=== PATIENT | female | born 1965 | race Caucasian/White ===

== ENCOUNTER → 2020-09-20 10:51 | Outpatient (BNVA) | payer OTHER, SELFPAY | PROVIDERS: Family Provider General Practice; PCP Family Medicine; Visit Provider Family Medicine | DX: E11.9 Type 2 diabetes mellitus without complications (principal); E78.2 Mixed hyperlipidemia; I10 Essential (primary) hypertension; F41.9 Anxiety disorder, unspecified; G47.00 Insomnia, unspecified; Z79.4 Long term (current) use of insulin | CPT/HCPCS: 80053; 80061; 83036; 84443; 85025 ==

== ENCOUNTER 2020-10-17 09:44 | Emergency (ER) | payer OTHER, SELFPAY ==
[2020-10-17] VITALS (8 sets, daily range): BP systolic 105–141; BP diastolic 45–78; PULSE 76–82; RESP 18; TEMP 36.7; O2SAT 93–97; BMI 52.4
--- NOTE | 2020-10-17 10:05 | ECG_ITS ---
[facility] ED Test Date: 2020-10-17 Pat Name: Ju Anderson Department: Room: Gender: Female Manager Hair: : 1965 Requested By: Alexander Diaz Order Number: [id number] Lurdes MD: Misty Merino M.D. Measurements Intervals [place] Rate: 78 P: 50 MT: 191 QRS: 7 QRSD: 86 T: 32 QT: 379 QTc: 433 Interpretive Statements SINUS RHYTHM LOW QRS VOLTAGE IN PRECORDIAL LEADS [QRS DEFLECTION < 1.0 mV IN CHEST LEADS] NONSPECIFIC T-WAVE ABNORMALITY No previous ECG available for comparison Electronically Signed On 10-23-2020 0:33:07 CDT by Misty Merino M.D. [id number]
--- NOTE | 2020-10-17 10:05 | XR_ITS ---
WS: [id number] XR chest 1V portable [id number] REASON FOR EXAM: palpitations FINDINGS: Status post coronary artery bypass surgery. Heart is at the upper limits of normal. There is elevation of both hemidiaphragms. No active pulmonary parenchymal or pleural disease is seen. XR/XR chest 1V portable [id number] IMPRESSION: Status post coronary artery bypass surgery. No acute chest abnormality.
--- NOTE | 2020-10-17 10:06 | ED_ITS ---
HPI - General Adult General: Chief complaint: Nausea/Vomiting/Diarrhea Stated complaint: N/V, discombolulated, shaky, weak Time Seen by Provider: 10/17/20 10:00 History of Present Illness: HPI narrative: This patient presents to the emergency department complaining of anxiety type symptoms. Patient states I feel discombobulated. Patient states she is feels extremely and numbness to her fingers. Patient has a long history of anxiety and takes Klonopin for the same. Patient is concerned that she has Covid again even though she does not have any shortness of breath or cough or congestion. Patient states that she had Covid last January and subsequently got her vaccination in May. 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 Patient also states that she wishes to have a medical screening exam on her heart because she has a cardiac history. Patient does not describe any cardiac type symptoms and appears to be more anxious. We will do medical evaluation treat as needed. Onset (ago): day(s) Associated symptoms: Deny chest pain, dyspnea, headache(s), nausea, rash, palpitations or vomiting Review of Systems General: Reports: 10 or more systems reviewed and unremarkable except in HPI and below Const: Denies: fever(s), chills, body aches or fatigue Eyes: Denies: change in vision or blurry vision ENMT: Denies: throat pain, hoarseness or mouth pain Card: Denies: chest pain, palpitations, irregular heart rhythm, edema, swelling of feet/ankles or lightheadedness Resp: Denies: dyspnea, productive cough, non-productive cough, wheezing or pain on inspiration GI: Denies: abdominal pain, nausea or vomiting : Denies: flank pain, difficulty voiding, dysuria, urinary frequency, urinary urgency or urinary hesitancy Musc: Denies: neck pain, back pain, extremity pain, extremity swelling, joint pain, joint swelling, joint redness, joint warmth or limited range of motion Skin/Breast: Denies: rash, pruritus, erythema or skin tenderness Neuro: Denies: headache(s), numbness in extremities or weakness in extremities Psych: Reports: anxiety; Denies: depression PFS ED PFSH: Medical History Anxiety Diabetes GERD (gastroesophageal reflux disease) Hx of chest pain Hyperlipidemia Hypertension Insomnia Neuropathy Surgical History History of heart artery stent (~2017) History of open heart surgery (~2016) Social History Smoking and tobacco status: never smoked Second hand smoke exposure: No Lives independently: Yes Marital status: Current occupational status: employed Physical Exam Const: COMMON NORMALS: no acute distress, average body habitus, patient oriented x3, no limitations, healthy appearing, alert and well nourished HENMT: COMMON NORMALS: normocephalic, atraumatic, hearing grossly normal bilaterally, external ears normal, EAC's normal, TM's normal bilaterally, Normal external nose present, Normal nasal mucous membranes and turbinates present, moist oral mucous membranes, oropharynx normal, dentition normal and gingiva normal HEAD & SCALP: normocephalic and atraumatic NOSE: Normal external nose present and Normal nasal mucous membranes and turbinates present EXTERNAL EAR: Yes external ears normal EXTERNAL AUDITORY CANAL: EAC's normal TYMPANIC MEMBRANE: TM's normal bilaterally Neck/C-Spine: COMMON NORMALS: full ROM, no lymphadenopathy, supple, no meningeal signs, no JVD, Thyroid normal and No carotid bruits THYROID: Thyroid normal Chest: COMMONS NORMALS: normal inspection of the chest, normal palpation of entire chest wall, normal inspection of the breasts and normal palpation of the breasts Breast/axilla inspection: Yes normal inspection of the breasts BREAST/AXILLA PALPATION: Yes normal palpation of the breasts Resp: COMMON NORMALS: normal respiratory effort, No retractions, No use of accessory muscles, clear to auscultation bilaterally and percussion normal A USCULTATION: clear to auscultation bilaterally PERCUSSION: percussion normal Cardio: COMMON NORMALS: no JVD, regular rate, regular rhythm, S1 normal heart sound present, S2 normal heart sound present, No gallops present (Cardio), No clicks present (Cardio), No murmurs present (Cardio), No rub (Cardio) and Peripheral pulses 2+ throughout RATE: regular rate RHYTHM: regular rhythm HEART SOUNDS: S1 normal heart sound present and S2 normal heart sound present PERIPHERAL PULSES: Peripheral pulses 2+ throughout GI: COMMON NORMALS: Normal to inspection, nondistended, normoactive bowel sounds present, Soft to palpation, non-tender, No hepatosplenomegaly present, no masses and no bruits PALPATION: Yes Soft to palpation and Yes No hepatosplenomegaly present Back/Pelvis: COMMON NORMALS: thoracic and lumbar spine normal to inspection, no thoracic nor lumbar tenderness, thoraco-lumbar ROM normal and straight leg raise negative bilaterally Extremity: COMMON NORMALS: normal to inspection, full ROM, capillary refill normal, no joint enlargement, no clubbing, cyanosis or edema, no calf tenderness and no pedal edema Neuro: COMMON NORMALS: patient oriented x3 SENSORIUM/ORIENTATION: Yes alert MENINGEAL SIGNS: Yes no meningeal signs Psych: MOOD & AFFECT: Yes anxious Course Reevaluation(s): Reevaluation #1: Negative evaluation in the emergency department for any acute findings. Patient is to continue with all home med ications. Follow-up with primary care physician for any additional medications for anxiety. Follow-up with your material expeditor as instructed. Time: 12:42 Vital Signs: Vital signs: Vital Signs Temperature 98.1 F 10/17/20 10:00 Pulse Rate 77 10/17/20 11:03 Respiratory Rate 18 10/17/20 11:03 Blood Pressure 118/58 10/17/20 11:03 Pulse Oximetry 93 10/17/20 11:03 MDM - General Adult MDM Narrative: Medical decision making narrative: This patient presents to the emergency department complaining of anxiety type symptoms. Patient states I feel discombobulated. Patient states she is feels extremely and numbness to her fingers. Patient has a long history of anxiety and takes Klonopin for the same. Patient is concerned that she has Covid again even though she does not have any shortness of breath or cough or congestion. Patient states that she had Covid last January and subsequently got her vaccination in May. 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 Patient also states that she wishes to have a medical screening exam on her heart because she has a cardiac history. Patient does not describe any cardiac type symptoms and appears to be more anxious. We will do medical evaluation treat as needed. Negative evaluation in the emergency department for any acute findings. Patient is to continue with all home medications. Follow-up with primary care physician for any additional medications for anxiety. Follow-up with your material expeditor as instructed. Lab Data: Labs: Lab Results 10/17/20 10/17/20 10/17/20 Range/Units 11:04 11:04 11:04 WBC 7.1 (4.0-10.0) 10^3/ uL RBC 4.19 (4.1-5.3) 10^6/u L Hgb 11.1 L (11.5-15.3) g/dL Hct 35.3 L (37.0-47.0) % MCV 84.2 (81-99) fL MCH 26.5 L (28.0-34.0) pg MCHC 31.4 (30.0-36.0) g/dL RDW 14.9 (12.1-15.1) % Plt Count 196 (130-400) 10^3/c mm MPV 12.0 H (7.4-10.4) fL Neut % (Auto) 82.3 % Lymph % (Auto) 10.7 % [place] % (Auto) 4.8 % Eos % (Auto) 0.7 % Baso % (Auto) 0.8 % Neut # (Auto) 5.85 (1.8-7.7) 10^3/u L Lymph # (Auto) 0.8 (0.8-4.8) 10^3/u L [place] # (Auto) 0.3 (0.2-0.9) 10^3/u L Eos # (Auto) 0.1 (0.0-0.8) 10^3/u L Baso # (Auto) 0.1 (0.0-0.1) 10^3/u L Nucleated RBC % (a uto) 0 % Nucleated RBCs # 0.0 /100WBC PT Cancelled INR Cancelled APTT Cancelled Sodium Cancelled Potassium Cancelled Chloride Cancelled Carbon Dioxide Cancelled Anion Gap Cancelled BUN Cancelled Creatinine Cancelled GFR Calculation Cancelled Glucose Cancelled Calculated Osmolal ity Cancelled Calcium Cancelled SARS-CoV-2 Ag (Rap id) (Negative) 10/17/20 10/17/20 10/17/20 Range/Units 11:04 11:34 11:34 WBC (4.0-10.0) 10^3/ uL RBC (4.1-5.3) 10^6/u L Hgb (11.5-15.3) g/dL Hct (37.0-47.0) % MCV (81-99) fL MCH (28.0-34.0) pg MCHC (30.0-36.0) g/dL RDW (12.1-15.1) % Plt Count (130-400) 10^3/c mm MPV (7.4-10.4) fL Neut % (Auto) % Lymph % (Auto) % [place] % (Auto) % Eos % (Auto) % Baso % (Auto) % Neut # (Auto) (1.8-7.7) 10^3/u L Lymph # (Auto) (0.8-4.8) 10^3/u L Swisher # (Auto) (0.2-0.9) 10^3/u L Eos # (Auto) (0.0-0.8) 10^3/u L Baso # (Auto) (0.0-0.1) 10^3/u L Nucleated RBC % (a uto) % Nucleated RBCs # /100WBC PT 14.30 INR 1.08 APTT 32.9 Sodium 137 Potassium 3.9 Chloride 100 Carbon Dioxide 25 Anion Gap 15.9 BUN 41 H Creatinine 1.8 H GFR Calculation 29.4 L Glucose 88 Calculated Osmolal ity 294 Calcium 8.7 SARS-CoV-2 Ag (Rap id) Negative (Negative) Imaging Data^: CXR: Attestation: I personally reviewed and interpreted this imaging study as follo ws: Radiologist's impression: IMPRESSION: Status post coronary artery bypass surgery. No acute chest abnormality. EKG Data^: EKG 1: Attestation: I personally reviewed and interpreted this EKG as follows: EKG interpretation date: 10/17/20 EKG interpretation time: 10:43 Prior EKG tracings: not available for review Interpretation: Sinus rhythm heart rate 78 nonspecific T wave changes otherwise normal EKG Computer generated interpretation: Chest X-Ray 10/17/20 10:05 IMPRESSION: Status post coronary artery bypass surgery. No acute chest abnormality. Discharge Plan Discharge Condition: Stable Prescriptions: No Action aspirin 325 mg tablet 325 mg PO DAILY RF: 0 carvedilol 25 mg tablet 25 mg PO BID RF: 0 escitalopram oxalate 20 mg tablet 30 mg PO DAILY RF: 0 furosemide 40 mg tablet 40 mg PO DAILY RF: 0 Lantus Solostar U-100 Insulin 100 unit/mL (3 mL) insulin pen 32 unit SUBCUT BID RF: 0 multivitamin Tablet 1 tab PO DAILY RF: 0 nitroglycerin 0.4 mg tablet, sublingual 0.4 mg sublingual Q5M PRNRF: 0 ondansetron HCl 4 mg tablet 4 mg PO Q8H RF: 0 pantoprazole 40 mg tablet,delayed release (DR/EC) 40 mg PO DAILY RF: 0 potassium chloride 20 mEq tablet extended release 20 meq PO BID RF: 0 rosuvastatin 40 mg tablet 40 mg PO DAILY RF: 0 trazodone 50 mg tablet 25 mg PO DAILY RF: 0 furosemide [Lasix] 80 mg tablet 80 mg PO DAILY Qty: 30 RF: 2 gabapentin 600 mg tablet 600 mg PO TID Qty: 90 RF: 3 clonazepam 1 mg tablet 1 mg PO BID Qty: 30 RF: 0 fluconazole [Diflucan] 150 mg tablet 150 mg PO DAILY 3 Days Qty: 3 RF: 1 insulin lispro [Humalog Victor Hugo KwikPen U-100] 100 unit/mL insulin pen, half- unit 50 unit SUBCUT TID Qty: 15 RF: 4 Discharge Orders: Discharge ED (Routine); Ordered 10/17/20 Ordered By: Alexander Diaz Referrals: Roxanne Villavicencio MD [Primary Care Provider] - Discharge Diet: Advance as tolerated Discharge Activity: Resume usual activity and Increase activity as tolerated Activity Restrictions/Additional Instructions: Negative evaluation in the emergency department for any acute findings. Patient is to continue with all home medications. Follow-up with primary care physician for any additional medications for anxiety. Follow-up with your material expeditor as instructed. Coding Level of Care Code ED Insulation Supervisor for Chg Fwd Exam Comprehensive
[2020-10-17] MEDS: sodium chloride 0.9% 500 ML IV (11:00)
[2020-10-17 11:16] LABS: Basophils # 0.1 10^3/uL (0.0-0.1); Basophils % 0.8 %; Eosinophils # 0.1 10^3/uL (0.0-0.8); Eosinophils % 0.7 %; Hematocrit 35.3 % (37.0-47.0); Hemoglobin 11.1 g/dL (11.5-15.3); Lymphocytes # 0.8 10^3/uL (0.8-4.8); Lymphocytes % 10.7 %; Mean Corpuscular HGB Conc 31.4 g/dL (30.0-36.0); Mean Corpuscular Hemoglobin 26.5 pg (28.0-34.0); Mean Corpuscular Volume 84.2 fL (81-99); Monocytes # 0.3 10^3/uL (0.2-0.9); Monocytes % 4.8 %; Neutrophils # 5.85 10^3/uL (1.8-7.7); Neutrophils % 82.3 %; Nucleated Red Blood Cells % 0 %; Platelet Count 196 10^3/cmm (130-400); Red Blood Count 4.19 10^6/uL (4.1-5.3); Red Cell Distribution Width 14.9 % (12.1-15.1); White Blood Count 7.1 10^3/uL (4.0-10.0)
[2020-10-17 11:31] LABS: SARS Covid-2 Antigen Negative (Negative)
[2020-10-17 11:50] LABS: INR 1.08 (0.8-1.2)
[2020-10-17 11:51] LABS: Partial Thromboplastin Time 32.9 SECONDS (23.9-36.7)
[2020-10-17 11:59] LABS: Anion Gap 15.9 (5-19); Blood Urea Nitrogen 41 mg/dL (6-20); Calcium 8.7 mg/dL (8.5-10.5); Carbon Dioxide 25 mmol/L (22-29); Chloride 100 mmol/L (98-107); Glomerular Filtration Rate 29.4 mL/min (90-130); Glucose 88 mg/dL (65-115); Osmolality Calculated 294 mOsm/kg (285-295); Potassium 3.9 mmol/L (3.5-5.1); Sodium 137 mmol/L (136-145)
== END 2020-10-17 13:17 | disposition home or self-care (01) ==
PROVIDERS: Emergency Provider Emergency Medicine; PCP Family Medicine
DX: F41.9 Anxiety disorder, unspecified (principal); R11.2 Nausea with vomiting, unspecified; R19.7 Diarrhea, unspecified; E11.9 Type 2 diabetes mellitus without complications; E78.5 Hyperlipidemia, unspecified; I10 Essential (primary) hypertension; Z79.4 Long term (current) use of insulin; Z86.16 Personal history of COVID-19
CPT/HCPCS: 36415; 71045; 80048; 85025; 85610; 85730; 87426; 93005; 96360; 99284; J7040

== ENCOUNTER 2020-12-13 15:04 | Outpatient (CLI) | payer OTHER, SELFPAY ==
--- NOTE | 2020-12-13 15:15 | XR_ITS ---
WS: [id number] Left wrist, 3 views, 12/13/2020 Clinical Data: LEFT WRIST INJURY - INITIAL ENCOUNTER Comparison: None. Findings: No fractures or dislocations are seen. The carpal bones are intact. There is no soft tissue swelling. The distal radius and ulna are not remarkable. XR/XR wrist LT min 3V* [id number] Impression: Negative left wrist.
== END 2020-12-13 15:05 | disposition home or self-care (01) ==
LOC: RAD 15:10
PROVIDERS: PCP Nurse Practitioner Family; Visit Provider Nurse Practitioner Family
DX: S69.92XA Unspecified injury of left wrist, hand and finger(s), initial encounter (principal); W19.XXXA Unspecified fall, initial encounter
CPT/HCPCS: 73110

== ENCOUNTER 2021-02-06 00:21 | Observation (INO) | payer OTHER, SELFPAY ==
[2021-02-06] VITALS (11 sets, daily range): BP systolic 118–167; BP diastolic 64–88; PULSE 67–82; RESP 15–26; TEMP 36.1–36.7; O2SAT 90–98; BMI 50.1; BMI 54.6
--- NOTE | 2021-02-06 00:39 | XRR_ITS ---
PROCEDURE INFORMATION: Exam: XR Chest Exam date and time: 02/06/2021 12:39 AM Age: 55 years old Clinical indication: Pain; Right-sided; Prior surgery; Surgery date: 6+ months; Surgery type: Cabg; Additional info: Chest pain TECHNIQUE: Imaging protocol: XR of the chest. Views: 1 view. COMPARISON: CR XR chest 1V portable [id number] 10/17/2020 10:06 AM FINDINGS: Lungs: Unremarkable. No consolidation. Pleural spaces: Unremarkable. No pleural effusion. No pneumothorax. Heart/Mediastinum: There is mild cardiomegaly. Bones/joints: There has been a median sternotomy. XR/XR chest 1V portable [id number] IMPRESSION: 1. Mild cardiomegaly. 2. No acute disease. Radiation Dose CTDIVOL = (mGy): DLP = (mGy-cm)
--- NOTE | 2021-02-06 00:39 | ECG_ITS ---
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 Measurements Intervals [place] Rate: 78 P: 47 MT: 194 QRS: 9 QRSD: 81 T: 51 QT: 373 QTc: 427 Interpretive Statements SINUS RHYTHM NONSPECIFIC T-WAVE ABNORMALITY Compared to ECG 10/17/2020 10:43:47 No significant changes Electronically Signed On 02-06-2021 21:54:14 CHANGE MANAGEMENT SPECIALIST by Parker Lorenzo M.D. [email or web address] Healthket[facility] healthV[employer]/store/[id number] f
--- NOTE | 2021-02-06 01:20 | PC.NURSE ---
[address] Santana
--- NOTE | 2021-02-06 02:39 | ECG_ITS ---
[facility] Test Date: 2021-02-06 Pat Name: Ju Anderson Department: Room: Gender: Female Careers Counsellor: : 1965 Requested By: Cornelio Santana Order Number: [id number] Lurdes MD: Parker Lorenzo M.D. Measurements Intervals [employer] Rate: 78 P: 57 CA: 194 QRS: 26 QRSD: 84 T: 35 QT: 400 QTc: 456 Interpretive Statements SINUS RHYTHM SEPTAL MYOCARDIAL INFARCTION , PROBABLY OLD [40+ ms Q WAVE IN V1/V2] Compared to ECG 02/06/2021 00:27:09 Myocardial infarct finding now present T-wave abnormality no longer present Electronically Signed On 02-06-2021 22:05:12 DYE BECK REEL OPERATOR by Parker Lorenzo M.D. [id number] leif
[2021-02-06] MEDS: nitroglycerin 0.4 mg sublingual Tablet SUBLINGUAL ×2 (03:00→08:20)
--- NOTE | 2021-02-06 03:02 | ED_ITS ---
HPI - General Adult General: Chief complaint: Chest Pain Stated complaint: Chest Pains SOB Time Seen by Provider: 02/06/21 01:53 History of Present Illness: HPI narrative: CC: Chest Pain HPI: This is a [55] yo patient hx of HTN, CAD s/ p CABG on plavix presenting to the ED w/ acute onset intermittent substernal chest pain since 8pm with radiation to the jaw. Pain is a very typical prior presentation of cardiac chest pain. Has shortness of breath worse with exertion for the last [] days. Pain is not tearing in nature and does not radiate to the back. Endorse nausea but has no associated with vomiting or decreased PO intake. Denies any recent sympathomimetic drug use. Patient denies any cough. Denies palpitations, syncope symptoms. Pain not positional. Norecent immobility, surgery, unilateral leg swelling, or prior PE. Patient denies any orthopnea, paroxysmal nocturnal dyspnea, weight gain, or increased leg swellings. Onset: 8 hrs ago Duration: ongoing for the last 8 hrs Location: home Severity: moderate Review of Systems Narrative: Constitutional: No fever, no chills. HEENT: No vision changes, no sore throat. CV: +chest pain, no palpitations. PULM: No cough, +dyspnea. GI: No abdominal pain, +N/-V/-D. : No dysuria, no frequency, no hematuria. MSKEL: No arthralgias, no edema. SKIN: No new rashes, no lesions. NEURO: No headache, no focal weakness. HEME: No easy bleeding or bruising. PSYCH: No change in mood or affect. [facility] ED PFSH: Medical History Anxiety Diabetes GERD (gastroesophageal reflux disease) Hx of chest pain Hyperlipidemia Hypertension Insomnia Neuropathy Surgical History History of heart artery stent (~2017) History of open heart surgery (~2016) Social History Smoking and tobacco status: never smoked Second hand smoke exposure: No Lives independently: Yes Marital status: service: No Current occupational status: employed History of recent travel: No Current gender identity: Female Special chris needs: No Agree to transfusion: Yes Physical Exam Narrative: EXAM NARRATIVE: Head: Atraumatic, normocephalic Eyes: PERRL, EOMI, conjunctiva without injection ENT: Throat without erythema, lesions or exudate, MMM NECK: Supple, trachea midline, no JVD LUNGS: LCTA CV: RRR, S1,S2, no murmurs, rubs, gallops. 2+ peripheral pulses in UEs ABDOMEN: Soft, nontender, nondistended, BS x4, no rigidity, no guarding, no rebound EXTREMITY: Normal ROM, no pitting edema, no calf tenderness to palpation SKIN: No rash or erythema NEURO: Awake and alert. No focal motor deficits. PSYCH: Normal mood and affect. Course Vital Signs: Vital signs: Vital Signs Temperature 96.9 F L 02/06/21 00:30 Pulse Rate 80 02/06/21 03:03 Respiratory Rate 16 02/06/21 03:03 Blood Pressure 156/81 02/06/21 03:03 Pulse Oximetry 96 02/06/21 03:03 MDM - General Adult MDM Narrative: Medical decision making narrative: 55yo patient w/ hx of CABG presenting to the ED With acute substernal chest pain X 5 hrs with hx of similar prior pain. Currently mild chest pain. Given History And Exam today I have moderate to high suspicion for ACS/UA/NSTEMI. Today, I have NO suspicion for pneumothorax, pneumonia, pulmonary embolus, tamponade, aortic dissection or other emergent problem as a cause for this presentation. ECG did not show any signs of acute STEMI. Workup: ECG, CXR, CBC, BMP, Troponin Intervention: ASA 325mg, SL nitroglycerin Findings: ECG: No overt evidence of STEMI, no hyperacute T waves, localizable STD or T wave inversions. No evidence of Brugada?s sign, delta wave, epsilon wave, significantly prolonged QTc, or malignant arrhythmia. No Q waves. Troponin: 17 Other Labs unremarkable for emergent problems. CXR: Without PTX, PNA, or widened mediastinum, +cardiomegaly Dimer wnl [3:45am] On reassessment, the patient continues to have intermittent chest pain requiring morphine, nitro SL. Pending repeat troponin. HDS, AAOx3, no signs of respiratory distress, without refractory chest pain, no signs of malignant dysrhythmia on forming roll operator (VT/VF). Disposition: Inpatient admission. Lab Data: Labs: Lab Results 02/06/21 02/06/21 02/06/21 01:30 02:45 02:50 WBC RBC Hgb Hct MCV MCH MCHC RDW Plt Count MPV Neut % (Auto) Lymph % (Auto) [place] % (Auto) Eos % (Auto) Baso % (Auto) Neut # (Auto) Lymph # (Auto) [place] # (Auto) Eos # (Auto) Baso # (Auto) Nucleated RBC % (a uto) Nucleated RBCs # D-Dimer 0.38 ug/mIFEU ug/ mIFEU (0-0.59) Sodium 136 mmol/L mmol/L (136-145) Potassium 4.1 mmol/L mmol/L (3.5-5.1) Chloride 102 mmol/L mmol/L (98-107) Carbon Dioxide 17 mmol/L L mmol/ L (22-29) Anion Gap 21.1 H (5-19) BUN 17 mg/dL mg/dL (6-20) Creatinine 1.0 mg/dL H mg/dL (0.5-0.9) GFR Calculation 57.8 mL/min L mL/ min (90-130) Glucose 297 mg/dL H mg/dL (65-115) Calculated Osmolal ity 295 mOsm/kg mOsm/ kg (285-295) Calcium 8.7 mg/dL mg/dL (8.5-10.5) Troponin T Baselin e 17 ng/L H ng/L (0-10) NT-Pro-B Natriuret Pep 133 pg/mL H pg/mL (0-125) 02/06/21 03:10 WBC 6.0 10^3/uL 10^3/ uL (4.0-10.0) RBC 4.12 10^6/uL 10^6 /uL (4.1-5.3) Hgb 10.8 g/dL L g/dL (11.5-15.3) Hct 34.0 % L % (37.0-47.0) MCV 82.5 fl fl (81-99) MCH 26.2 pg L pg (28.0-34.0) MCHC 31.8 g/dL g/dL (30.0-36.0) RDW 13.4 % % (12.1-15.1) Plt Count 238 10^3/cmm 10^3 /cmm (130-400) MPV 11.3 fL H fL (7.4-10.4) Neut % (Auto) 58.7 % % Lymph % (Auto) 29.1 % % [place] % (Auto) 5.2 % % Eos % (Auto) 6.0 % % Baso % (Auto) 0.7 % % Neut # (Auto) 3.53 10^3/uL 10^3 /uL (1.8-7.7) Lymph # (Auto) 1.8 10^3/uL 10^3/ uL (0.8-4.8) [place] # (Auto) 0.3 10^3/uL 10^3/ uL (0.2-0.9) Eos # (Auto) 0.4 10^3/uL 10^3/ uL (0.0-0.8) Baso # (Auto) 0.0 10^3/uL 10^3/ uL (0.0-0.1) Nucleated RBC % (a uto) 0 % % Nucleated RBCs # 0.0 /100WBC /100W BC D-Dimer Sodium Potassium Chloride Carbon Dioxide Anion Gap BUN Creatinine GFR Calculation Glucose Calculated Osmolal ity Calcium Troponin T Baselin e NT-Pro-B Natriuret Pep Imaging Data^: Other Imaging: Radiologist's impression: [address] [id number] ReportSigned Patient: Ju Anderson JUnit #: [id number]: 1965 /Sex: 55 / FADM Date: 02/06/21Loc: ERRoom/Bed:Attending Dr: Ordering Provider/Ordering MD: Cornelio Santana MD Date of Service: 02/06/21 Procedure(s): XR chest 1V portable [id number] Accession Number(s): [id number] Report Number: [id number] PROCEDURE INFORMATION: Exam: XR Chest Exam date and time: 02/06/2021 12:39 AM Age: 55 years old Clinical indication: Pain; Right-sided; Prior surgery; Surgery date: 6+ months; Surgery type: Cabg; Additional info: Chest pain TECHNIQUE: Imaging protocol: XR of the chest. Views: 1 view. COMPARISON: CR XR chest 1V portable [id number] 10/17/2020 10:06 AM FINDINGS: Lungs: Unremarkable. No consolidation. Pleural spaces: Unremarkable. No pleural effusion. No pneumothorax. Heart/Mediastinum: There is mild cardiomegaly. Bones/joints: There has been a median sternotomy. XR/XR chest 1V portable [id number] IMPRESSION: 1. Mild cardiomegaly. 2. No acute disease. Radiation Dose CTDIVOL = (mGy): DLP = (mGy-cm) Dictated By:Thierno Up By:Thierno Up Date/Time:02/06/21 0321DD/ 0039 Discharge Plan Discharge Patient Disposition: Admitted As Inpatient Clinical Impression: Chest pain, Dyspnea Condition: Stable Coding Level of Care Code ED Maintenance Mechanic Telephone for Rosalio Saunders
[2021-02-06 03:37] LABS: Basophils % 0.7 %; Eosinophils # 0.4 10^3/uL (0.0-0.8); Hemoglobin 10.8 g/dL (11.5-15.3); Lymphocytes # 1.8 10^3/uL (0.8-4.8); Lymphocytes % 29.1 %; Mean Corpuscular HGB Conc 31.8 g/dL (30.0-36.0); Mean Corpuscular Hemoglobin 26.2 pg (28.0-34.0); Mean Corpuscular Volume 82.5 fl (81-99); Mean Platelet Volume 11.3 fL (7.4-10.4); Monocytes # 0.3 10^3/uL (0.2-0.9); Monocytes % 5.2 %; Neutrophils # 3.53 10^3/uL (1.8-7.7); Neutrophils % 58.7 %; Nucleated Red Blood Cells % 0 %; Platelet Count 238 10^3/cmm (130-400); Red Blood Count 4.12 10^6/uL (4.1-5.3); Red Cell Distribution Width 13.4 % (12.1-15.1)
[2021-02-06 03:46] LABS: Blood Urea Nitrogen 17 mg/dL (6-20); Calcium 8.7 mg/dL (8.5-10.5); Carbon Dioxide 17 mmol/L (22-29); Chloride 102 mmol/L (98-107); Glomerular Filtration Rate 57.8 mL/min (90-130); Glucose 297 mg/dL (65-115); NT Pro B Type Natriuretic Pept 133 pg/mL (0-125); Osmolality Calculated 295 mOsm/kg (285-295); Sodium 136 mmol/L (136-145)
[2021-02-06 03:49] LABS: Anion Gap 21.1 (5-19); Potassium 4.1 mmol/L (3.5-5.1)
[2021-02-06 03:50] LABS: D Dimer 0.38 ug/mIFEU (0-0.59)
[2021-02-06] MEDS: morphine 4 mg/mL SDV 1 mL IVP (03:56)
[2021-02-06] MEDS: ondansetron 2 mg/ML SDV 2 mL 4 MG IVP ×3 (03:56→19:53)
[2021-02-06] MEDS: aspirin 325 mg Tablet PO (03:56)
[2021-02-06 04:28] LABS: Troponin(5th) Baseline 17 ng/L (0-10)
[2021-02-06 06:39] LABS: Troponin 5 2HR 16.73 ng/L (0-10)
--- NOTE | 2021-02-06 06:39 | ECG_ITS ---
[facility] Test Date: 2021-02-06 Pat Name: Ju Anderson Department: Room: EDIP Gender: Female Machine Tool Operator: : 1965 Requested By: Cornelio Santana Order Number: [id number] Lurdes MD: Parker Lorenzo M.D. Measurements Intervals [place] Rate: 73 P: 55 TN: 206 QRS: 16 QRSD: 84 T: 31 QT: 408 QTc: 451 Interpretive Statements SINUS RHYTHM NONSPECIFIC T-WAVE ABNORMALITY Compared to ECG 02/06/2021 03:03:56 T-wave abnormality now present Myocardial infarct finding no longer present Electronically Signed On 02-06-2021 22:11:34 SUPERVISOR BURLING AND JOINING by Parker Lorenzo M.D. [email or web address] community [email or web address]/[id number]
[2021-02-06 06:58] LABS: Troponin 5 2HR Delta -0.27 ABS# (0-10)
--- NOTE | 2021-02-06 07:35 | PM.HP ---
Providers/Chief Complaint Admitting Physician: Angeli Paul MD Primary Care Provider: Kasandra Lopez NP Chief Complaint: Chest Pains SOB History of Present Illness Ju Anderson is a 55 year old female with a past medical history of hypertension, diabetes mellitus, CAD, status post multiple stents, most recently 1 year ago, CABG in 2016, follows with cardiology at [facility] and [facility]. Presents to the hospital today with chief complaints of chest pain. States that pain started at around 8 PM at rest, described as a chest pressure in the middle of the chest, radiating into right arm and her right side of her jaw. Symptoms relieved by multiple pills of nitro taken at home and upon presentation to the ED and morphine. However chest pain has been recurring since then. At the time of my evaluation at around 5:30 AM, patient again complains of starting of chest pain radiating into the jaw. She has been having on and off chest pain and worsening shortness of breath at least over the past 2 to 3 months, states that recently underwent stress test at [facility] 2 weeks ago which was reportedly normal. Has also had a sleep study where she qualified for CPAP, however some parts are on back order and she has not started using the machine yet. Denies any past history of COPD or asthma. Currently saturating well, 98% on room air. She has recently increased her Lasix to 80 mg p.o. daily due to worsening shortness of breath. BNP today is not significantly elevated, at 133. Baseline troponin at 17, 2-hour troponin at 16.7. Creatinine at baseline of 1.0. Chest x-ray with mild cardiomegaly, no acute disease. Review of Systems General: Reports: 10 or more systems reviewed and unremarkable except in HPI and below Const: Denies: fever(s), chills or body aches Eyes: Denies: change in vision, blurry vision or photophobia ENMT: Reports: hoarseness; Denies: throat pain, enlarged tonsils, odynophagia or nasal congestion Card: Denies: chest pain, palpitations, irregular heart rhythm, edema, swelling of feet/ankles, lightheadedness, pre-syncope, dyspnea on exertion or orthopnea Resp: Denies: dyspnea, productive cough, non-productive cough, wheezing, stridor, pain on inspiration, change in phlegm color, hemoptysis or chest congestion GI: Denies: abdominal pain, nausea, vomiting, hematemesis, coffee ground emesis, dysphagia, heartburn, diarrhea, constipation, GI cramping, change in stool character, hematochezia or melena : Denies: flank pain, difficulty voiding, dysuria, urinary frequency, urinary urgency, urinary hesitancy or hematuria Musc: Denies: neck pain, back pain, extremity pain, joint swelling, joint warmth or deformity Neuro: Denies: headache(s), numbness in extremities, weakness in extremities, sensory changes, difficulty walking, frequent falls, dizziness, vertigo, behavioral changes, Slurred speech present or seizure-like activity Psych: Denies: anxiety, depression, suicidal ideation or homicidal ideation Endo: Denies: polyuria, polydipsia, tired all the time, cold intolerance or hot flashes Orger/Lymph: Denies: easy bruising or easy bleeding Medications/Allergies Home Medications Medication Instructions Recorded Confirmed Last Taken Type aspirin 325 mg tablet 325 mg PO DAILY 09/20/20 10/30/20 10/16/20 History carvedilol 25 mg tablet 25 mg PO BID 09/20/20 10/30/20 10/16/20 History escitalopram oxalate 20 mg tablet 30 mg PO DAILY tab 09/20/20 10/30/20 10/16/20 History furosemide 40 mg tablet 40 mg PO DAILY 09/20/20 10/30/20 10/16/20 History insulin glargine 100 unit/mL (3 62 unit SUBCUT BID ml 09/20/20 10/30/20 10/16/20 History mL) subcutaneous pen multivitamin 1 tab PO DAILY 09/20/20 10/30/20 10/16/20 History nitroglycerin 0.4 mg sublingual 0.4 mg SUBLINGUAL Q5M PRN 09/20/20 10/30/20 10/14/20 History tablet ondansetron HCl 4 mg tablet 4 mg PO Q8H 09/20/20 10/30/20 10/16/20 History pantoprazole 40 mg tablet,delayed 40 mg PO DAILY 09/20/20 10/30/20 10/16/20 History release rosuvastatin 40 mg tablet 40 mg PO DAILY 09/20/20 10/30/20 10/16/20 History trazodone 50 mg tablet 50 mg PO DAILY 09/20/20 10/30/20 10/16/20 History amlodipine 5 mg PO DAILY 10/17/20 10/30/20 10/16/20 History clopidogrel 75 mg PO DAILY 10/17/20 10/30/20 10/16/20 History duloxetine 60 mg PO DAILY 10/17/20 10/30/20 10/16/20 History ergocalciferol (vitamin D2) 1,250 mcg PO Q7D 10/17/20 10/30/20 10/13/20 History insulin aspart U-100 [Novolog See Rx Instructions .ROUTE .COMPLEX 10/17/20 10/30/20 10/16/20 History U-100 Insulin aspart] isosorbide mononitrate 60 mg PO DAILY 10/17/20 10/30/20 10/16/20 History metformin 500 mg PO BID 10/17/20 10/30/20 10/16/20 History prazosin 1 mg PO BID 10/17/20 10/30/20 10/16/20 History ropinirole 2 mg PO TID 10/17/20 10/30/20 10/16/20 History zonisamide 200 mg PO BEDTIME 10/17/20 10/30/20 10/16/20 History cephalexin 500 mg capsule 500 mg PO TID 10 Days #30 cap 10/18/20 10/30/20 Unknown Rx gabapentin 600 mg tablet See Rx Instructions .ROUTE 01/12/21 Unknown Rx .COMPLEX #90 tab Allergies Allergy/AdvReac Type Severity Reaction Status Date / Time PAULETTE Inhibitors Allergy cough Verified 10/30/20 13:11 codeine Allergy hives Verified 10/30/20 13:11 hydromorphone Allergy rash, Verified 10/30/20 13:11 confusion, hallucinations meperidine Allergy confusion Verified 10/30/20 13:11 contrast media Allergy hives Uncoded 10/17/20 10:07 PFSH Acute PFSH: Medical History (Updated 02/06/21 @ 07:42 by Angeli Paul MD) Anxiety COVID-10 jan 2020 Diabetes GERD (gastroesophageal reflux disease) Hx of chest pain Hyperlipidemia Hypertension Insomnia Neuropathy Surgical History History of heart artery stent (~2016) History of open heart surgery (~2015) Social History Smoking and tobacco status: never smoked Second hand smoke exposure: No Lives independently: Yes Marital status: service: No Current occupational status: employed History of recent travel: No Current gender identity: Female Special chris needs: No Agree to transfusion: Yes Vitals/I&O/Wt Last Vital Signs Temp 96.9 F L 02/06/21 00:30 Pulse 77 02/06/21 06:21 Resp 18 02/06/21 06:21 BP 132/67 02/06/21 06:21 Pulse Ox 98 02/06/21 06:21 Weight last 48 hrs Weight 145.15 kg Physical Exam Narrative: EXAM NARRATIVE: General: No acute distress, AO x3 HEENT: PERRLA, pupils bilaterally equal and reactive, pallors not present Chest: Normal vesicular breath sounds, no added sounds, equal good air entry bilaterally CVS: S1-S2 regular, no murmurs, no tachycardia, no gallops, no rubs Abdomen: Soft, nontender, no organomegaly, bowel sounds present Neuro: No focal deficits, no facial deformity, AO x3, power 5/5 in all limbs Data : 02/06/21 03:10 02/06/21 02:45 A&P Assessment and plan (1) Chest pain: Status: Acute Qualifiers: Chest pain type: unspecified Qualified Code(s): R07.9 - Chest pain, unspecified (2) Dyspnea: Status: Acute Qualifiers: Dyspnea type: dyspnea on exertion Qualified Code(s): R06.00 - Dyspnea, unspecified Additional A&P Information Patient presenting today with ongoing chest pain with a history of significant CAD, status post CABG and multiple stents in the past, also with additional risk factors of hypertension, diabetes mellitus. Symptoms have been ongoing for the past few weeks, more acute since last evening at 8 PM. EKG without acute ST-T wave changes, troponin series 17 and 16 respectively at 0 and 2 hours. Symptoms temporarily improved with nitroglycerin and morphine, however now appears to be recurring. Reports having had a recent stress test at [facility] 2 weeks ago, results are requested, as are any additional echocardiogram and cardiac cath results. In the interim continue aspirin, Plavix, statin. Continue Protonix As needed morphine and nitro patch for chest pain. Cardiology consult ordered in the ER in view of ongoing chest pain, multiple risk factors, reportedly recent negative stress test. Reports also worsening dyspnea over the past 2 to 3 weeks. She has recently increased her Lasix to 80 mg p.o. daily. Currently appearing to be euvolemic clinically.. Chest x-ray without any pulmonary congestion. BNP 133. Saturating well on room air. D-dimer additionally negative, lower suspicion for PE. Diagnosed also with sleep apnea which could explain patient's describes symptoms of wheezing and dyspnea, has not been able to start using her CPAP machine yet due to parts being on backorder. Attestations Medical Necessity Statement*: Observation admission, anticipate less than 2 midnight stay Coding Level of Care Code Acute [employer]board [employer] for [facility] Diagnoses Chest pain R07.9 Chest pain type: unspecified Dyspnea R06.00 Dyspnea type: dyspnea on exertion
--- NOTE | 2021-02-06 08:06 | PC.NURSE ---
Pt is reporting pressure in her chest, going up the right side of her jaw and going down her neck, 9/10.
--- NOTE | 2021-02-06 08:28 | USCV_ITS ---
Ju Anderson Age: 55 Gender: F : 1965 Exam Date: 02/06/2021 11:31 Ordering Phys: Erich Edouard MD Technologist: KAILA [place] [facility] [place]: EDEMA PROCEDURES: Venous duplex imaging was performed in bilateral lower extremities. The following venous structures were evaluated: common femoral vein, profunda vein, proximal portion of the greater saphenous vein, superficial femoral vein, and the popliteal vein. In addition, the posterior tibial and peroneal trunk were evaluated. Serial compression, augmentation maneuvers, and spectral Doppler flow evaluation were performed. FINDINGS: Normal 2-D Doppler and augmentation and compressibility throughout the lower extremity venous structures. Additional imaging through the proximal calf veins also reveals no thrombus. Limited evaluation of the greater saphenous vein is patent with no thrombus.. Appears to be a flower's cyst noted within the right popliteal fossa. CONCLUSIONS No evidence of right lower extremity DVT. No evidence of left lower extremity DVT. Right popliteal cyst measuring 5.7 x 2.5cm Danial Love MD (Electronically Signed) Final Date: 06 February 2021 17:07 S
[2021-02-06] MEDS: nitroglycerin 1 gm/inch oint Pkt 1 INCH TOPICAL (08:30)
--- NOTE | 2021-02-06 08:32 | USCV_ITS ---
Ju Anderson Age: 55 Gender: F : 1965 Exam Date: 02/06/2021 10:52 Ordering Phys: Erich Edouard MD Technologist: Robby De Jesus [place] [facility] [place]ication: CHEST PAIN BP: 167 / 84 HR: 69 Rhythm: Sinus Technical Quality: Technically difficult study MEASUREMENTS (Male / Female) Normal Values 2D ECHO LV Diastolic Diameter PLAX 3.7 cm 4.2 - 5.9 / 3.9 - 5.3 cm LV Systolic Diameter PLAX 2.4 cm IVS Diastolic Thickness 1.0 cm 0.6 - 1.0 / 0.6 - 0.9 cm IVS Systolic Thickness 1.3 cm LVPW Diastolic Thickness 1.2 cm 0.6 - 1.0 / 0.6 - 0.9 cm LVPW Systolic Thickness 2.0 cm LVOT Diameter 2.0 cm LV Ejection Fraction 2D Teich 67.2 % LV Ejection Fraction MOD 2C 63.6 % LV Ejection Fraction 2C AL 65.4 % LA Diameter 3.8 cm LA Width 4.3 cm LA Height 5.8 cm RA Width 4.4 cm RA Height 4.8 cm Aorta at Sinotubular Diameter 2.1 cm DOPPLER AV Peak Velocity 167.0 cm/s LVOT Peak Velocity 117.0 cm/s AV Area Cont Eq vti 2.1 cm squared AV Area Cont Eq pk 2.2 cm squared MV Area PHT 3.9 cm squared Mitral E to A Ratio 0.9 MV E' Velocity 48.5 cm/s Mitral E to MV E' Ratio 8.5 Mitral E to LV E' Lateral Ratio 7.7 Mitral E to LV E' Septal Ratio 9.7 TR Peak Velocity 214.2 cm/s TR Peak Gradient 18.3 mmHg TR Mean Velocity 77.9 cm/s TR Mean Gradient 2.7 mmHg TR Velocity Time Integral 22.1 cm Right Atrial Pressure 3.0 mmHg Pulmonary Artery Systolic Pressu 21.3 mmHg RV Acceleration Time 0.1 s RV Ejection Time 0.3 s RV AcT/ET 0.3 FINDINGS Left Ventricle Normal left ventricular size and systolic function, EF 61 %. No regional wall motion abnormalities. Grade I/IV diastolic dysfunction (abnormal relaxation filling pattern), normal to mildly elevated filling pressures. Right Ventricle The right ventricle is normal in size and function. Right Atrium The right atrium is normal in size. Left Atrium The left atrium is normal in size. Mitral Valve Thickened mitral valve. Trace mitral valve regurgitation. Aortic Valve No gross abnormalities noted Tricuspid Valve No gross abnormalities noted Pulmonic Valve No gross abnormalities noted Pericardium Normal pericardium without effusion. Aorta Normal ascending aorta dimension. CONCLUSIONS Normal left ventricular size and systolic function, EF 61 %. No regional wall motion abnormalities. Grade I/IV diastolic dysfunction (abnormal relaxation filling pattern), normal to mildly elevated filling pressures. Thickened mitral valve. Trace mitral valve regurgitation. There is no pericardial effusion. There are no intracardiac masses. Dr Parker Lorenzo MD FACC (Electronically Signed) Final Date: 06 February 2021 20:29 S
--- NOTE | 2021-02-06 08:43 | PM.CONSULT ---
Providers/Reason For Consult Consulting Physician/Specialty*: LON Lorenzo MD/cardiology Reason for Consult*: Patient with history of coronary artery disease, coronary bypass surgery, presenting with unstable angina Attending Physician: Erich Edouard MD Primary Care Provider: Kasandra Lopez NP History of Present Illness History of Present Illness Ju Anderson is a 55 year old female with a history of atherosclerotic heart disease, status post coronary artery bypass surgery, status post multiple PCI's, is presenting with complaints of chest pain for the last 3 weeks. This patient is known to have coronary artery disease and a strong family history for premature atherosclerotic heart disease. She also is known to have diabetes and dyslipidemia. She had a four-vessel coronary bypass surgery at the [facility] in [place] in 2016. Prior to this, she had multiple PCI's. Following the bypass surgery, she had 2 more PCI's at 2 different times, 1 year apart. These were done in [place]. According the patient, she been doing okay for a year or so. 3 weeks ago, she started having chest pain. She described as a mid substernal pain, radiated to the back, to the right side of the neck and also the right arm. She has some associated shortness of breath and nausea. She been having the chest pain almost every day, each time lasting for several hours. The intensity of the pain may be anywhere from 4-9 over 10. Last night the pain was a 9/10 intensity. It got better with the nitro in the emergency room. The intensity was brought down to 4/10. At the time of my examination the pain is again back up to 8/10. Apparently she has been having this pattern of pain for the last 3 weeks. She had a stress test at the [facility] in [place] 2 weeks ago. She was told the test was negative. Details are not available at this time. Patient is known to have diabetes for the last more than 20 years. She also is known to have dyslipidemia. She has a strong family history for premature atherosclerotic heart disease. Her father had myocardial infarction in his 40s but lived up to the age of 80 and of aneurysm rupture. Her mother of myocardial infarction in her 60s. One of her brother had a myocardial infarction at the age of 52. All her paternal cousins in their 40s and 50s with myocardial infarction. An younger brother also is known to have heart issues. Further details are not available. Patient denies any fever or chills. No cough. In December of last year, she contracted COVID-19. She had a symptoms of Covid for almost 2 months. Ever since the COVID-19 infection, she been having fluid retention. She had some trigger fingers in both hands for which she received steroid injection. For the last 2 months, her swelling of the extremities is getting worse. Review of Systems Narrative: CONSTITUTIONAL: No fever or chills. EYES: No blurring of vision or other visual disturbances lately. ENT: No hoarseness of voice, auditory disturbances or sore throat. CARDIOVASCULAR: As mentioned above. RESPIRATORY: No significant cough. Shortness of breath as mentioned above GASTROINTESTINAL: No hematemesis or melena. GENITOURINARY: No dysuria or hematuria. INTEGUMENTARY: Peripheral edema/fluid retention. NEURO: No transient ischemic attacks or amaurosis. PSYCHIATRIC: No history of psychosis or major depression. HEMATOLOGIC: History of chronic anemia. ENDOCRINE: Insulin requiring diabetes MUSCULOSKELETAL: No recent joint pain or swelling. ALLERGY/IMMUNOLOGY: As mentioned above. Meds/Allergies Home Medications and Allergies Home Medications Medication Instructions Recorded Confirmed Last Taken Type aspirin 325 mg tablet 325 mg PO DAILY 09/20/20 02/06/21 02/05/21 History carvedilol 25 mg tablet 25 mg PO BID 09/20/20 02/06/21 02/05/21 History escitalopram oxalate 20 mg tablet 30 mg PO DAILY tab 09/20/20 02/06/21 02/05/21 History furosemide 40 mg tablet 40 mg PO DAILY 09/20/20 02/06/21 02/05/21 History multivitamin 1 tab PO DAILY 09/20/20 02/06/21 02/05/21 History nitroglycerin 0.4 mg sublingual 0.4 mg SUBLINGUAL Q5M PRN 09/20/20 02/06/21 10/14/20 History tablet pantoprazole 40 mg tablet,delayed 40 mg PO DAILY 09/20/20 02/06/21 02/05/21 History release rosuvastatin 40 mg tablet 40 mg PO DAILY 09/20/20 02/06/21 02/05/21 History trazodone 50 mg tablet 50 mg PO BEDTIME 09/20/20 02/06/21 02/05/21 History amlodipine 5 mg PO DAILY 10/17/20 02/06/21 02/05/21 History clopidogrel 75 mg PO DAILY 10/17/20 02/06/21 02/05/21 History duloxetine 60 mg PO DAILY 10/17/20 02/06/21 02/05/21 History ergocalciferol (vitamin D2) 1,250 mcg PO Q7D 10/17/20 02/06/21 02/05/21 History isosorbide mononitrate 60 mg PO DAILY 10/17/20 02/06/21 02/05/21 History metformin 500 mg PO BID 10/17/20 02/06/21 02/05/21 History prazosin 2 mg PO BEDTIME 10/17/20 02/06/21 02/05/21 History ropinirole 2 mg PO TID 10/17/20 02/06/21 02/05/21 History zonisamide 200 mg PO BEDTIME 10/17/20 02/06/21 02/05/21 History gabapentin 600 mg tablet See Rx Instructions .ROUTE 01/12/21 02/06/21 02/05/21 Rx .COMPLEX #90 tab insulin degludec [Tresiba 65 unit SUBCUT BID 02/06/21 02/06/21 02/06/21 History FlexTouch U-100] insulin lispro [Humalog Victor Hugo See Rx Instructions .ROUTE .COMPLEX 02/06/21 02/06/21 Unknown History KwikPen U-100] Allergies Allergy/AdvReac Type Severity Reaction Status Date / Time PAULETTE Inhibitors Allergy cough Verified 10/30/20 13:11 codeine Allergy hives Verified 10/30/20 13:11 hydromorphone Allergy rash, Verified 10/30/20 13:11 confusion, hallucinations meperidine Allergy confusion Verified 10/30/20 13:11 contrast media Allergy hives Uncoded 10/17/20 10:07 Current Medications Current Medications Generic Name Dose Route Start Last Admin Trade Name Freq PRN Reason Stop Dose Admin Nitroglycerin 1 inch 02/06/21 07:45 02/06/21 08:30 Nitroglycerin 1 Gm/Inch Oint Pkt TOPICAL 1 inch Q6H ROSA ELENA Administration Nitroglycerin 0.4 mg 02/06/21 08:17 02/06/21 08:20 Nitroglycerin 0.4 Mg Sublingual Tablet SUBLINGUAL 0.4 mg Q5M PRN Administration CHEST PAIN PFSH Acute PFSH: Medical History Anxiety COVID-10 jan 2020 Diabetes GERD (gastroesophageal reflux disease) Hx of chest pain Hyperlipidemia Hypertension Insomnia Neuropathy Surgical History History of heart artery stent (~2016) History of open heart surgery (~2015) Social History Smoking and tobacco status: never smoked Second hand smoke exposure: No Lives independently: Yes Marital status: service: No Current occupational status: employed History of recent travel: No Current gender identity: Female Special chris needs: No Agree to transfusion: Yes Vitals/I&O/Wt Last Vital Signs Temp 97.9 F 02/06/21 08:04 Pulse 75 02/06/21 08:04 Resp 19 H 02/06/21 08:04 BP 167/84 02/06/21 08:04 Pulse Ox 96 02/06/21 08:04 Weight last 48 hrs Weight 320 lb Physical Exam Narrative: EXAM NARRATIVE: GENERAL: The patient is alert and oriented times three. Not in any acute distress. Morbidly obese HEENT: No significant pallor, icterus or lymphadenopathy. The pupils are reactant to light. Oral cavity: There are no mucous membrane lesions. Funduscopic examination: Fundus is not visualized NECK: Trachea appears to be central. No masses noted. No JVD or thyromegaly appreciated. No carotid bruit. RESPIRATORY: Chest is symmetrical. No intercostals muscle retraction or any accessory muscle activation. There is no chest wall tenderness. Breath sounds are heard bilaterally. No rales or rhonchi heard. No evidence of any consolidation. BREASTS: Deferred. HEART: The PMI could not be palpated no palpable precordial events. S1 and S2 are normal. No S3 or S4 heard. No pericardial rub or any click heard. ABDOMEN: No vessel pulsations or distention. No tenderness. No organomegaly appreciated. No abdominal bruit. Bowel sounds are normally heard. : Deferred. RECTAL: Deferred. LYMPHATIC: No lymphadenopathy noted in the neck or groin. EXTREMITIES: 1-2+ edema both lower extremities. No cyanosis. MUSCULOSKELETAL: No acute joint deformities or swelling. SKIN: There are no significant scars or skin rash noted. NEUROPSYCHIATRIC: The patient is alert and oriented x3. Appears to be in a good mood. The higher functions are grossly within normal limits. No tremors or rigidity noted. Data Labs: Other Labs: Laboratory Last Values WBC 6.0 10^3/uL (4.0- 10.0) 02/06/21 03:10 RBC 4.12 10^6/uL (4.1 -5.3) 02/06/21 03:10 Hgb 10.8 g/dL (11.5-1 5.3) L 02/06/21 03:10 Hct 34.0 % (37.0-47.0 ) L 02/06/21 03:10 MCV 82.5 fl (81-99) 02/06/21 03:10 MCH 26.2 pg (28.0-34. 0) L 02/06/21 03:10 MCHC 31.8 g/dL (30.0-3 6.0) 02/06/21 03:10 RDW 13.4 % (12.1-15.1 ) 02/06/21 03:10 Plt Count 238 10^3/cmm (130 -400) 02/06/21 03:10 MPV 11.3 fL (7.4-10.4 ) H 02/06/21 03:10 Neut % (Auto) 58.7 % 02/06/21 03:10 Lymph % (Auto) 29.1 % 02/06/21 03:10 Louisa % (Auto) 5.2 % 02/06/21 03:10 Eos % (Auto) 6.0 % 02/06/21 03:10 Baso % (Auto) 0.7 % 02/06/21 03:10 Neut # (Auto) 3.53 10^3/uL (1.8 -7.7) 02/06/21 03:10 Lymph # (Auto) 1.8 10^3/uL (0.8- 4.8) 02/06/21 03:10 Louisa # (Auto) 0.3 10^3/uL (0.2- 0.9) 02/06/21 03:10 Eos # (Auto) 0.4 10^3/uL (0.0- 0.8) 02/06/21 03:10 Baso # (Auto) 0.0 10^3/uL (0.0- 0.1) 02/06/21 03:10 Nucleated RBC % (a uto) 0 % 02/06/21 03:10 Nucleated RBCs # 0.0 /100WBC 02/06/21 03:10 D-Dimer 0.38 ug/mIFEU (0- 0.59) 02/06/21 01:30 Sodium 136 mmol/L (136-1 45) 02/06/21 02:45 Potassium 4.1 mmol/L (3.5-5 .1) 02/06/21 02:45 Chloride 102 mmol/L (98-10 7) 02/06/21 02:45 Carbon Dioxide 17 mmol/L (22-29) L 02/06/21 02:45 Anion Gap 21.1 (5-19) H 02/06/21 02:45 BUN 17 mg/dL (6-20) 02/06/21 02:45 Creatinine 1.0 mg/dL (0.5-0. 9) H 02/06/21 02:45 GFR Calculation 57.8 mL/min (90-1 30) L 02/06/21 02:45 Glucose 297 mg/dL (65-115 ) H 02/06/21 02:45 Calculated Osmolal ity 295 mOsm/kg (285- 295) 02/06/21 02:45 Calcium 8.7 mg/dL (8.5-10 .5) 02/06/21 02:45 Troponin T Baselin e 17 ng/L (0-10) H 02/06/21 02:50 Troponin T 120 Min kale 16.73 ng/L (0-10) H 02/06/21 05:30 Delta Troponin T -0.27 ABS# (0-10) L 02/06/21 05:30 NT-Pro-B Natriuret Pep 133 pg/mL (0-125) H 02/06/21 02:45 Imaging^: CXR: My impression: Borderline cardiac silhouette. No lung infiltrate. No acute pathology noted. EKG^: EKG 1: My Interpretation: The EKG revealed sinus rhythm with features of old septal FL. Diffuse nonspecific ST-T changes. Heart rate of 73 bpm. A&P Assessment and plan (1) Atherosclerotic heart disease of [place] coronary artery with unstable angina pectoris: Patient's clinical features are suggestive of unstable angina. We will try to get her medical records from [facility] and also from the [facility]. We will go ahead and do an echocardiogram to evaluate LV function and rule out any other pathology. We will try to get the [facility] test [facility]. May go ahead and start her on IV nitroglycerin and subcu Lovenox. Also may be started on IV nitroglycerin. Dose of the nitro may be titrated for chest pain. Status: Acute (2) Diabetes: The blood sugar need to be closely monitored. Aggressive management of the diabetes would be appropriate Status: Acute Qualifiers: Diabetes mellitus complication status: without complication Diabetes mellitus halfway insulin use: with regional intermodal truck driver use Diabetes mellitus type: type 2 Qualified Code(s): E11.9 - Type 2 diabetes mellitus without complications; Z79.4 - superintendent terminal (current) use of insulin (3) Hyperlipidemia: May continue on the current medications. Status: Acute Qualifiers: Hyperlipidemia type: mixed hyperlipidemia Qualified Code(s): E78.2 - Mixed hyperlipidemia (4) Hypertension: Currently the blood pressure is a stage II. We will optimize the antihypertensive medications. Status: Acute Qualifiers: Hypertension type: primary hypertension Qualified Code(s): I10 - Essential (primary) hypertension Additional A&P Information Based on the patient's the clinical progress and the results of the above, further recommendations will be made. Thank you for the opportunity to evaluate this patient make these recommendations Coding Level of Care Code Acute Paperback Machine Operator for Rosalio Saunders History Detailed Exam Detailed Medical Decision Making High Complexity Diagnoses Atherosclerotic heart disease of [place] coronary artery with unstable angina pectoris I25.110 Diabetes E11.9; Z79.4 Diabetes mellitus complication status: without complication Diabetes mellitus regional intermodal truck driver insulin use: with halfway use Diabetes mellitus type: type 2 Hyperlipidemia E78.2 Hyperlipidemia type: mixed hyperlipidemia Hypertension I10 Hypertension type: primary hypertension
[2021-02-06] MEDS: FUROsemide 40 mg Tablet 80 MG PO (09:55)
[2021-02-06] MEDS: atorvastatin 40 mg Tablet 80 MG PO (09:55)
[2021-02-06] MEDS: pantoprazole DR 40 mg Tablet PO (09:56)
[2021-02-06] MEDS: gabapentin 400 mg Capsule 1200 MG PO ×3 (09:56→22:15)
[2021-02-06] MEDS: carvedilol 25 mg Tablet PO ×2 (09:57→17:19)
[2021-02-06] MEDS: clopidogrel 75 mg Tablet PO (09:57)
[2021-02-06] MEDS: aspirin 81 mg Chew Tablet (09:57)
[2021-02-06] MEDS: amlodipine 5 mg Tablet PO (09:57)
[2021-02-06] MEDS: nitroglycerin drip 50 MG/250 ML PREMIX IV (10:03)
[2021-02-06 10:18] LABS: Troponin 5 6HR 16.39 ng/L (0-10)
[2021-02-06 10:20] LABS: Troponin 5 6HR Delta -0.61 ng/L (0-12)
[2021-02-06 10:24] LABS: Thyroid Stimulating Hormone 6.36 uIU/mL (0.27-4.20)
--- NOTE | 2021-02-06 10:38 | P.PN_ITS ---
Subjective Subjective: Interval history: Ju reported she was having some chest discomfort when I saw her, which felt like pressure on her chest. History and physical was reviewed in detail. Case was discussed with cardiology as well. Medications: Reviewed: Yes Vitals/I&O/Wt Last Vital Signs Temp 97.9 F 02/06/21 08:04 Pulse 75 02/06/21 08:04 Resp 19 H 02/06/21 08:04 BP 167/84 02/06/21 08:04 Pulse Ox 96 02/06/21 08:04 Weight last 48 hrs Weight 145.15 kg Physical Exam Narrative: EXAM NARRATIVE: General exam is a white female, complaining of chest discomfort Neck is supple Cardiovascular regular rate and rhythm without murmur Lungs clear Abdomen is soft, obese, positive bowel sounds Extremities 2+ bilateral lower extremity edema, cap refill brisk. No cyanosis or clubbing Neuro no obvious focal deficits Skin no rash Data : 02/06/21 03:10 02/06/21 02:45 A&P Assessment and plan (1) Chest pain: Concern for unstable angina Nitroglycerin sublingual given in the ER Nitropaste applied. May need nitroglycerin drip Morphine for breakthrough pain Cardiology consultation Lovenox will be initiated. 120 mg every 12 hours. She has some element of ch ronic renal insufficiency and underlying anemia. Continue beta-quinn, Plavix, statin Request old records Check echocardiogram Dimer was negative Status: Acute Qualifiers: Chest pain type: unspecified Qualified Code(s): R07.9 - Chest pain, unspecified (2) Atherosclerotic heart disease of [place] coronary artery with unstable angina pectoris: See above Status: Acute (3) Edema: Patient relates past history of DVT. Check venous duplex bilaterally. Status: Acute (4) Diabetes: Sliding scale insulin Hold Metformin Status: Acute Qualifiers: Diabetes mellitus type: type 2 Diabetes mellitus dedicated intermodal truck driver insulin use: with alf use Diabetes mellitus complication status: without complication Qualified Code(s): E11.9 - Type 2 diabetes mellitus without complications; Z79.4 - USP (current) use of insulin (5) Hypertension: Continue home medications Status: Acute (6) Hyperlipidemia: Continue statin Status: Acute Qualifiers: Hyperlipidemia type: mixed hyperlipidemia Qualified Code(s): E78.2 - Mixed hyperlipidemia (7) Anxiety: Continue home medications Status: Acute Additional A&P Information Anemia, relatively mild Chronic kidney disease. Likely related to diabetes. Full code Lovenox will suffice for DVT prophylaxis Attestations Medical Necessity Statement*: Needs continued hospitalization for evaluation of chest discomfort Coding Level of Care Code Acute After School Program Teacher for Chg Fwd Diagnoses Chest pain R07.9 Chest pain type: unspecified Atherosclerotic heart disease of [place] coronary artery with unstable angina pectoris I25.110 Edema R60.9 Diabetes E11.9; Z79.4 Diabetes mellitus type: type 2 Diabetes mellitus dedicated intermodal truck driver insulin use: with dedicated intermodal truck driver use Diabetes mellitus complication status: without complication Hypertension I10 Hyperlipidemia E78.2 Hyperlipidemia type: mixed hyperlipidemia Anxiety F41.9
[2021-02-06] MEDS: enoxaparin 100 mg/mL Syringe 120 MG SUBCUT (12:52)
[2021-02-06 12:59] LABS: Glucose Point of Care 202 mg/dL (70-110)
[2021-02-06] MEDS: insulin lispro 100 unit/1 mL SUBCUT ×3 (13:23→22:14)
--- NOTE | 2021-02-06 14:44 | PC.NURSE ---
Called report to Mitchell DRUMMOND
--- NOTE | 2021-02-06 16:33 | PC.NURSE ---
received into room 102 from er at 1505.report received.pt is alert and awake and oriented x 4.sr on monitor.ntg infusing at 10 mcg/kg/min via left ac iv.pt c/o chest pressure (substernal)...radiating to right jaw and ear.ntg titrated up to 20mcgs.bp and hr stable.oriented to room environment.instructed to notify staff for any sob,increase in chest pain,diaphoresis,or for any concerns at all.pt verb understanding of instructions
[2021-02-06 16:34] LABS: Glucose Point of Care 147 mg/dL (70-110)
[2021-02-06] MEDS: ropinirole 1 mg Tablet 2 MG PO ×2 (17:20→22:16)
[2021-02-06] MEDS: duloxetine 60 mg Capsule PO (17:20)
--- NOTE | 2021-02-06 19:43 | PC.NURSE ---
pt singh chest pain at change of shift.pt states plan is to take her for cardiac angiogram tomorrow..though no md orders have been entered for this
[2021-02-06 20:04] LABS: Glucose Point of Care 185 mg/dL (70-110)
[2021-02-06] MEDS: prazosin 1 mg Capsule 2 MG PO (22:16)
[2021-02-07] VITALS (14 sets, daily range): BP systolic 101–150; BP diastolic 67–102; PULSE 68–84; RESP 14–22; TEMP 35.7–37.1; O2SAT 84–97
[2021-02-07 02:49] LABS: Basophils % 0.5 %; Eosinophils # 0.4 10^3/uL (0.0-0.8); Eosinophils % 6.1 %; Hemoglobin 10.5 g/dL (11.5-15.3); Lymphocytes # 1.4 10^3/uL (0.8-4.8); Lymphocytes % 23.6 %; Mean Corpuscular HGB Conc 30.9 g/dL (30.0-36.0); Mean Corpuscular Hemoglobin 25.9 pg (28.0-34.0); Mean Platelet Volume 11.5 fL (7.4-10.4); Monocytes # 0.4 10^3/uL (0.2-0.9); Monocytes % 6.9 %; Neutrophils % 62.7 %; Nucleated Red Blood Cells % 0 %; Platelet Count 230 10^3/cmm (130-400); Red Blood Count 4.05 10^6/uL (4.1-5.3); Red Cell Distribution Width 13.7 % (12.1-15.1); White Blood Count 6.1 10^3/uL (4.0-10.0)
[2021-02-07 03:23] LABS: Alanine Aminotransferase 13 U/L (0-33); Albumin Level 3.7 g/dL (3.5-5.2); Alkaline Phosphatase 61 IU/L (35-105); Anion Gap 18.3 (5-19); Aspartate Amino Transferase 14 U/L (0-32); Blood Urea Nitrogen 19 mg/dL (6-20); Calcium 8.2 mg/dL (8.5-10.5); Carbon Dioxide 22 mmol/L (22-29); Chloride 104 mmol/L (98-107); Globulin 2.9 g/dL (1.3-4.6); Glomerular Filtration Rate 57.8 mL/min (90-130); Glucose 158 mg/dL (65-115); Osmolality Calculated 296 mOsm/kg (285-295); Potassium 4.3 mmol/L (3.5-5.1); Sodium 140 mmol/L (136-145); Total Bilirubin 0.2 mg/dL (0.15-1.2); Total Protein 6.6 g/dL (6.6-8.7)
[2021-02-07 06:30] LABS: Glucose Point of Care 199 mg/dL (70-110)
[2021-02-07] MEDS: clopidogrel 75 mg Tablet PO (08:11)
[2021-02-07] MEDS: gabapentin 400 mg Capsule 1200 MG PO ×3 (08:11→21:39)
[2021-02-07] MEDS: pantoprazole DR 40 mg Tablet PO (08:12)
[2021-02-07] MEDS: aspirin 81 mg EC Tablet PO (08:12)
[2021-02-07] MEDS: amlodipine 5 mg Tablet PO (08:13)
[2021-02-07] MEDS: ropinirole 1 mg Tablet 2 MG PO ×3 (08:13→21:40)
[2021-02-07] MEDS: atorvastatin 40 mg Tablet 80 MG PO (08:13)
[2021-02-07] MEDS: duloxetine 60 mg Capsule PO (08:13)
[2021-02-07] MEDS: FUROsemide 40 mg Tablet 80 MG PO (08:13)
[2021-02-07] MEDS: carvedilol 25 mg Tablet PO (08:13)
--- NOTE | 2021-02-07 08:21 | PM.PN ---
Subjective Subjective: Interval history: Still feels somewhat uncomfortable. Angiogram planned this morning. Still on nitroglycerin drip. Medications: Reviewed: Yes Vitals/I&O/Wt Last Vital Signs Temp 97.9 F 02/07/21 03:16 Pulse 70 02/07/21 05:29 Resp 16 02/07/21 03:16 BP 101/67 02/07/21 03:16 Pulse Ox 94 02/07/21 03:16 02/06/21 02/07/21 02/07/21 22:59 06:59 14:59 Intake Total 265.35 / 265.35 100 / 365.35 102.7 / 102.7 Balance 265.35 / 265.35 100 / 365.35 102.7 / 102.7 Weight last 48 hrs Weight 158.02 kg Weight 145.15 kg Physical Exam Narrative: EXAM NARRATIVE: General exam is no obvious distress Neck is supple Cardiovascular regular rate and rhythm without murmur Lungs clear Abdomen is soft, obese, positive bowel sounds Extremities 1+ bilateral lower extremity edema, cap refill brisk. No cyanosis or clubbing Data : 02/07/21 02:36 02/07/21 02:36 A&P Assessment and plan (1) Chest pain: Concern for unstable angina Currently on nitroglycerin drip Morphine for breakthrough pain Cardiology consultation Continue Lovenox 120 mg every 12 hours. She has some element of chronic renal insufficiency and underlying anemia. Continue beta-quinn, Plavix, statin Request old records. We have still not received these. Echocardiogram demonstrates preserved EF, no severe valvular abnormalities Dimer was negative Telemetry with no concerns overnight Status: Acute Qualifiers: Chest pain type: unspecified Qualified Code(s): R07.9 - Chest pain, unspecified (2) Atherosclerotic heart disease of [place] coronary artery with unstable angina pectoris: See above Status: Acute (3) Edema: Patient relates past history of DVT. Venous duplex negative bilaterally Status: Acute (4) Diabetes: Sliding scale insulin Hold Metformin Status: Acute Qualifiers: Diabetes mellitus type: type 2 Diabetes mellitus correction insulin use: with correction use Diabetes mellitus complication status: without complication Qualified Code(s): E11.9 - Type 2 diabetes mellitus without complications; Z79.4 - rat exterminator (current) use of insulin (5) Hypertension: Continue home medications Status: Acute Qualifiers: Hypertension type: primary hypertension Qualified Code(s): I10 - Essential (primary) hypertension (6) Hyperlipidemia: Continue statin Status: Acute Qualifiers: Hyperlipidemia type: mixed hyperlipidemia Qualified Code(s): E78.2 - Mixed hyperlipidemia (7) Anxiety: Continue home medications Status: Acute Additional A&P Information Anemia, relatively mild. Stable Chronic kidney disease. Likely related to diabetes. Creatinine stable Full code Lovenox will suffice for DVT prophylaxis Attestations Medical Necessity Statement*: Needs continued hospitalization pending definitive evaluation of chest discomfort with angiogram. Coding Level of Care Code Acute Solid Waste Landfill Technician for g Fwd Diagnoses Chest pain R07.9 Chest pain type: unspecified Atherosclerotic heart disease of [place] coronary artery with unstable angina pectoris I25.110 Edema R60.9 Diabetes E11.9; Z79.4 Diabetes mellitus type: type 2 Diabetes mellitus lobsterman insulin use: with lobsterman use Diabetes mellitus complication status: without complication Hypertension I10 Hypertension type: primary hypertension Hyperlipidemia E78.2 Hyperlipidemia type: mixed hyperlipidemia Anxiety F41.9
--- NOTE | 2021-02-07 08:56 | PC.CHAP ---
Pastoral Care Encounter/Spiritual Assessment Type of Contact [] Declined orchid grower visit [] Patient/Family/Request visit [] Outpatient visit [] Follow-up visit [] Physician referral [] Code/Alert [x] Routine visit [] Staff referral [] Actively dying [] Patient sleeping [] Family support [] [] Out of room [] Palliative care [] [] Receiving care in room [] Pre-surgical visit [] Trauma [] Long length of stay [] ICU visit [] Other: Relational/Emotional Strength [] Patient feels connected with others/family/visitors/staff [] Distress [] Loneliness/isolation [] Abandonment Spirituality of Patient [] Person of Mackenzie [] Attends Zoroastrianism of their Mackenzie [] Believes in Prayer [] Reads Bible or Samaritan materials [] There are Spiritual issues to be addressed Cafeteria Operator Interventions [x] Prayer [x] Active listening [x] Non-anxious presence [x] Spiritual/emotional support [] Crisis/trauma care [] Spiritual counseling [] Bereavement support [] Provided bereavement packet [] Provided Bible/devotional materials [] Provided toy/stuffed animal, coloring book to patient or family member [] Provided Communion [] Anointing/Juda [] Salvation [x] Completed spiritual assessment [] Other: Impact on Illness or Injury [] Angry [] Fearful [] Anxious [] Often cries [] Exhaustion [] Unable to work [] Unable to attend jehovah's witness [] Unable to walk/stand [] Unable to read [] Unable to drive [] Unable to eat/drink [] Unable to sleep [] Unable to be with family [] Patient intubated [] Other: Summary patient feeling stronger ... pains have lessoned .. Time spent with patient 5 min
[2021-02-07] MEDS: LORazepam 2 mg/mL INJ 1 mL 0.5 MG IVP (09:08)
[2021-02-07 11:58] LABS: Glucose Point of Care 188 mg/dL (70-110)
--- NOTE | 2021-02-07 12:58 | PM.PN ---
Subjective Subjective: Interval history: Patient continues to have chest pain. Frequency and the intensity of the pain are much less. Currently the pain is 3/10 in intensity. The cardiac enzymes are negative so far. They still have not yet received the medical records. She denies any fever or chills. No cough. Medications: Reviewed: Yes Medication Review Details: Current Medications Albuterol Sulfate (Albuterol 2.5 Mg/0.5 Ml Neb) 2.5 mg INHALATION Q4H.RESPIRATORY PRN PRN Reason: SHORTNESS OF BREATH Amlodipine Besylate (Amlodipine 5 Mg Tablet) 5 mg PO DAILY [facility] Last Admin: 02/07/21 08:13 Dose: 5 mg Documented by: Aspirin (Aspirin 81 Mg Ec Tablet) 81 mg PO DAILY [facility] Last Admin: 02/07/21 08:12 Dose: 81 mg Documented by: Atorvastatin Calcium (Atorvastatin 40 Mg Tablet) 80 mg PO DAILY [facility] Last Admin: 02/07/21 08:13 Dose: 80 mg Documented by: Calcium Carbonate (Calcium Carbonate 500 Mg Chew Tablet) 1,000 mg PO Q4H PRN PRN Reason: DYSPEPSI Carvedilol (Carvedilol 25 Mg Tablet) 25 mg PO BID [facility] Last Admin: 02/07/21 08:13 Dose: 25 mg Documented by: Clopidogrel Bisulfate (Clopidogrel 75 Mg Tablet) 75 mg PO DAILY [facility] Last Admin: 02/07/21 08:11 Dose: 75 mg Documented by: Dextrose (Dextrose 50% Syringe 50 Ml) 25 ml IVP ONCE PRN; Protocol PRN Reason: hypoglycemia protocol Dextrose (Dextrose 50% Syringe 50 Ml) 50 ml IVP PRN PRN; Protocol PRN Reason: hypoglycemia protocol Duloxetine HCl (Duloxetine 60 Mg Capsule) 60 mg PO BID [facility] Last Admin: 02/07/21 08:13 Dose: 60 mg Documented by: Enoxaparin Sodium (Enoxaparin 100 Mg/Ml Syringe) 120 mg SUBCUT Q12H [facility] Last Admin: 02/07/21 03:07 Dose: Not Given Documented by: Furosemide (Furosemide 40 Mg Tablet) 80 mg PO DAILY [facility] Last Admin: 02/07/21 08:13 Dose: 80 mg Documented by: Gabapentin (Gabapentin 400 Mg Capsule) 1,200 mg PO TID [facility] Last Admin: 02/07/21 08:11 Dose: 1,200 mg Documented by: Glucagon (Glucagon 1 Mg/Ml Inj 1 Ml) 1 mg IM ONCE PRN; Protocol PRN Reason: Adult Acute Hypoglycemia Prot. Dextrose (D5w) 500 mls @ 100 mls/hr IV ONCE PRN; Protocol PRN Reason: Adult Acute Hypoglycemia Prot Nitroglycerin/Dextrose (Nitroglycerin Drip) 50 mg in 250 mls @ 0 mls/hr IV .Q0M [facility]; Protocol Last Titration: 02/07/21 08:17 Dose: 30 mcg/min, 9 mls/hr Documented by: Sodium Chloride (Sodium Chloride 0.9%) 1,000 mls @ 125 mls/hr IV .Q8H [facility] Insulin Human Lispro (Insulin Lispro 100 Unit/1 Ml) 0 unit SUBCUT WM&BEDTIME [facility]; Protocol Last Admin: 02/07/21 08:14 Dose: Not Given Documented by: Lorazepam (Lorazepam 2 Mg/Ml Inj 1 Ml) 0.5 mg IVP Q4H PRN PRN Reason: ANXIETY Last Admin: 02/07/21 09:08 Dose: 0.5 mg Documented by: Morphine Sulfate (Morphine 4 Mg/Ml Sdv 1 Ml) 2 mg IVP Q4H PRN PRN Reason: SEVERE PAIN Naloxone HCl (Naloxone 0.4 Mg/Ml Sdv) 0.1 mg IVP Q2M PRN PRN Reason: OPIATERV Nitroglycerin (Nitroglycerin 0.4 Mg Sublingual Tablet) 0.4 mg SUBLINGUAL Q5M PRN PRN Reason: CHEST PAIN Last Admin: 02/06/21 08:20 Dose: 0.4 mg Documented by: Non-Formulary Medication (Insulin Glargine [Lantus Solostar U-100 Insulin]) 62 unit SUBCUT BID [facility] Ondansetron HCl (Ondansetron 2 Mg/Ml Sdv 2 Ml) 4 mg IVP Q8H PRN PRN Reason: vomiting, or N/V if npo Last Admin: 02/06/21 19:53 Dose: 4 mg Documented by: Pantoprazole Sodium (Pantoprazole Dr 40 Mg Tablet) 40 mg PO DAILY [facility] Last Admin: 02/07/21 08:12 Dose: 40 mg Documented by: Prazosin HCl (Prazosin 1 Mg Capsule) 2 mg PO BEDTIME [facility] Last Admin: 02/06/21 22:16 Dose: 2 mg Documented by: Ropinirole HCl (Ropinirole 1 Mg Tablet) 2 mg PO TID [facility] Last Admin: 02/07/21 08:13 Dose: 2 mg Documented by: Zonisamide (Zonisamide 100 Mg Capsule) 200 mg PO BEDTIME [facility] Last Admin: 02/07/21 03:03 Dose: Not Given Documented by: Vitals/I&O/Wt Last Vital Signs Temp 98.8 F 02/07/21 08:00 Pulse 76 02/07/21 08:39 Resp 16 02/07/21 08:39 BP 142/81 02/07/21 08:00 Pulse Ox 92 02/07/21 08:39 02/06/21 02/07/21 02/07/21 22:59 06:59 14:59 Intake Total 265.35 / 265.35 100 / 365.35 102.7 / 102.7 Balance 265.35 / 265.35 100 / 365.35 102.7 / 102.7 Weight last 48 hrs Weight 348 lb 6 oz Weight 320 lb Physical Exam Narrative: EXAM NARRATIVE: GENERAL: The patient is alert and oriented times three. Not in any acute distress. Morbidly obese HEENT: No significant pallor, icterus or lymphadenopathy. The pupils are symmetrical. NECK: Trachea appears to be central. No masses noted. No JVD or thyromegaly appreciated. No carotid bruit. RESPIRATORY: Chest is symmetrical. No intercostals muscle retraction or any accessory muscle activation. There is no chest wall tenderness. Breath sounds are heard bilaterally. No rales or rhonchi heard. No evidence of any consolidation. BREASTS: Deferred. HEART: The PMI could not be palpated no palpable precordial events. S1 and S2 are normal. No S3 or S4 heard. No pericardial rub or any click heard. ABDOMEN: No vessel pulsations or distention. No tenderness. No organomegaly appreciated. No abdominal bruit. Bowel sounds are normally heard. : Deferred. RECTAL: Deferred. LYMPHATIC: No lymphadenopathy noted in the neck or groin. EXTREMITIES: 1-2+ edema both lower extremities. No cyanosis. MUSCULOSKELETAL: No acute joint deformities or swelling. SKIN: There are no significant scars or skin rash noted. NEUROPSYCHIATRIC: The patient is alert and oriented x3. Appears to be in a good mood. The higher functions are grossly within normal limits. No tremors or rigidity noted. Data : 02/07/21 02:36 02/07/21 02:36 A&P Assessment and plan (1) Atherosclerotic heart disease of [place] coronary artery with unstable angina pectoris: Patient's clinical features are suggestive of unstable angina. We will try to get her medical records from [facility] and also from the [facility]. We will go ahead and do an echocardiogram to evaluate LV function and rule out any other pathology. We will try to get the stress test report from [facility]. May go ahead and start her on IV nitroglycerin and subcu Lovenox. Also may be started on IV nitroglycerin. Dose of the nitro may be titrated for chest pain. Currently the pain is getting better. She still has significant symptoms. Status: Acute (2) Diabetes: The blood sugar need to be closely monitored. Aggressive management of the diabetes would be appropriate. The blood sugar seems to be getting under control. 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 Status: Acute Qualifiers: Hyperlipidemia type: mixed hyperlipidemia Qualified Code(s): E78.2 - Mixed hyperlipidemia (4) Hypertension: Blood pressure still stage II. We will continue to optimize the antihypertensive medications. Status: Acute Qualifiers: Hypertension type: primary hypertension Qualified Code(s): I10 - Essential (primary) hypertension Additional A&P Information In view of the patient's ongoing symptoms, she requires a cardiac catheterization to evaluate the coronary status as well as the graft status. We may go ahead and schedule this procedure today. The risk of bleeding, hematoma, vascular injury, myocardial infarction, CVA, renal failure and other concomitant complications were explained in detail. Patient understood this well and consented to proceed. Based on the angiogram findings, further recommendations will be made Attestations Medical Necessity Statement*: Patient requires continued hospital stay for close monitoring and further management Coding Level of Care Code Acute Powder Operator for Rosalio Saunders History Detailed Exam Detailed Medical Decision Making High Complexity Diagnoses Atherosclerotic heart disease of [place] coronary artery with unstable angina pectoris I25.110 Diabetes E11.9; Z79.4 Diabetes mellitus type: type 2 Diabetes mellitus half-way insulin use: with half-way use Diabetes mellitus complication status: without complication Hyperlipidemia E78.2 Hyperlipidemia type: mixed hyperlipidemia Hypertension I10 Hypertension type: primary hypertension
[2021-02-07] MEDS: sodium chloride 0.9% 1,000 ML 125 ML IV (14:27)
--- NOTE | 2021-02-07 16:22 | W.PM.OPSUD ---
Surgery/Procedure H&P Update DATE OF PROCEDURE: February 07, 2021 DATE H&P PERFORMED: 02/06/21 H&P UPDATE INFORMATION: I have reviewed H&P completed within last 30 days and I have examined patient prior to procedure PREOP DIAGNOSIS: Unstable angina/ASHD PRIMARY INDICATION FOR PROCEDURE: Unstable angina PATIENT REASSESSED PRIOR TO SEDATION, WITH NO CHANGE NOTED: Yes PHYSICAL EXAM: alert, oriented x 3, clear to auscultation bilaterally and regular rate & rhythm AIRWAY EVAL/ANESTHESIA PLAN: normal airway, see other exam findings, ASA III, Monitored Anesthesia, Local Anesthesia, Risks, benefits & alternatives of sedation and/or procedure discussed and Patient agrees to continue as planned
[2021-02-07] MEDS: diphenhydrAMINE 25 mg Capsule PO (16:25)
--- NOTE | 2021-02-07 16:30 | XACV_ITS ---
Exam Room: [facility] Ht: 170 cm Wt: 158 kg BSA: 2.83 m2 Gender: Female : 1965 Any Known Allergies: Other Exam Priority: Routine Indication(s): - Unstable angina Procedure(s): Procedure Description: Diagnostic procedure Procedure Description: Left Heart Catheterization Procedure Description: Venous Graft Catheterization Procedure Description: MCDONOUGH Graft Catheterization Procedure Description: Coronary Angiography Bj [place]; Diagnostic Cath Status: Urgent Diagnostic Findings * Coronary angiography shows right dominance. * The left main is a medium caliber vessel with minimal intimal irregularities. No significant stenotic lesions were noted. * The left anterior descending artery is a medium caliber vessel which was found to be totally occluded at the mid segment, just above the level of a long stented segment. 2 diagonal branches were found to be originating before the occlusion. These branches were found to have moderate diffuse disease proximally.. * The left circumflex artery is a medium caliber vessel which gives off a relatively small first obtuse marginal branch. The second obtuse marginal artery was found to be a medium caliber vessel which was having a tubular high-grade lesion before its terminal bifurcation. One of the bifurcation branches were found to have competitive blood flow. The artery appears to gives off left ~right collaterals to the PLV branch of the right coronary artery. * The right coronary artery is a medium to large caliber dominant vessel which was found to have a tapering narrowing of around 50% proximally. The distal artery and the PDA branch were found to have mild diffuse intimal irregularities. The PLV branch appears to be totally occluded. * The MCDONOUGH to the LAD was found to be patent. The MCDONOUGH is found to be anastomosed to a relatively small caliber diagonal vessel. * The saphenous venous graft to the distal LAD was found to be patent. No significant stenotic lesions were noted. * The saphenous venous graft to the obtuse marginal artery also was found to be patent. Distal to the anastomosis the artery was found to have moderate diffuse disease.. Conclusions 1. This is a 55-year-old atherosclerotic heart disease, coronary bypass surgery, multiple PCI, presenting with unstable anginal symptoms. She had a recent myocardial perfusion imaging at another facility which reportedly was unremarkable. Patient presents to the emergency room with increasing episodes of chest pain, suggesting unstable angina. For further evaluation of her coronary status as well as the graft status, a cardiac catheterization was recommended. Patient underwent left heart catheterization with left and right coronary angiogram and graft angiogram today. The findings are as follows. 2. Total occlusion of the mid LAD and PLV branch of the right coronary artery. High-grade lesion in the second obtuse marginal branch of the circumflex artery. Moderate diffuse disease in the proximal segments of the diagonal arteries. There was a 50% tapering narrowing in the right coronary artery at the proximal segment. The MCDONOUGH to the diagonal artery was found to be patent. Saphenous venous graft to the distal LAD was found to be patent. saphenous venous graft to the obtuse marginal artery also was found to be patent . The obtuse marginal artery distal to the anastomosis was found to have moderate diffuse disease. LVEDP was 32 mmHg.. Recommendations * Because of the patient's morbid obesity and difficulty in managing the femoral arterial puncture by manual compression, I requested Dr. Kelly to do Perclose closure of the arteriotomy site. Dr. Kelly took over further management of this patient at this point. Diagnostic RX Recommendation: medical therapy and/or counseling LV EDP: 32 mmHg Left Ventriculography Findings: * LV gram was not performed because of the ventricular arrhythmia and high LVEDP. The LVEDP was 32 mmHg. Pressures Phase:Rest AO : 154 / 95 ( 119 ) @ 3:08:00 PM 160 / 86 ( 113 ) @ 3:24:00 PM 164 / 87 ( 120 ) @ 3:24:00 PM LV : 161 / 30 / 39 @ 3:24:00 PM 160 / 11 / 32 @ 3:24:00 PM 153 / 7 / 30 @ 3:24:00 PM Valves Phase:DefaultPhase AV : 1.0 @ 5:56:05 PM AV Mean Gradient: 0.0 @ 5:56:05 PM Clinical Evaluation EBL: 5mL-10mL Procedural Details Procedure Consent Obtained. Admit Source: In Patient. Current Diagnosis : Unstable angina. Pre-Procedure Time Out. Identified patient by full name and date of as verbalized by the patient/guarantor. Does the consent match the physician's order: Yes. Accurate & Complete Informed Consent: Yes. Inpatient/Outpatient History & Physical on Chart: Yes. If H&P is completed, is and addenduem needed: No; If yes, is the addendum complete: N/A. Visualize and Verify Site with Patient/Guarantor: N/A. Relevant Radiology Images available: N/A. The risks, benefits, and alternatives of sedation and/or procedure were discussed by physician. The patient agrees to continue. DR Dickens made awre of Contrast Allergy: Patient to be premedicated by CSU prior to cath today. Procedure started. [facility] Clinical Fraility Score: 4: Vulnerable. [employer] Consultant Indications: Worsening Angina. Chest Pain Symptom Assessment: Typical Angina Symptoms. Cardiovascular Instability: No, stable. Correct patient, site and procedure confirmed by cath team. Current diagnosis: Unstable angina. PERRLA. Strong, equal hand environmental emergencies assistant bilaterally. Lungs clear x 5 lobes. IV Site on Arrival: 20 gauge in the right anticubital. IV Fluids: 0.9% NaCl at KVO. 0 mL infused prior to medical laboratory technologist. Pre Procedural Pulses: bilateral radial was 3+. Pre Procedural Pulses: bilateral posterior tibial was 3+. Pre Procedural Pulses: bilateral dorsalis pedis was 3+. Oxygen started at 3liters/min via nasal canula. bilateral groins was prepped with chloroprep then draped in the usual sterile fashion. Baseline sample Acquired. HR: 72 BPM. Physician notified. Patient's family updated. Physician arrived. Patient premedicated with solu medrol on CSU CUSTOMER SERVICE ADVISOR for contrast allergy. Physician scrubbed in. Immediate Pre-Procedure Time Out. Correct Patient: Yes; Correct Procedure: Yes; Correct Site: Yes; Correct Patient Position: Yes; Correct Supplies: Yes; Dried Flammable Prep: Yes; Blood Products Available: N/A;. Lidocaine 1% infiltrated to the right groin. Venous access obtained. Venous sheath left in place. Attempting to gain access in the femoral artery. Arterial access obtained. A 5 mongolian JL4 catheter in over wire. Multiple views taken of left coronary artery. Catheter removed over the standard wire. A 5 mongolian JR4 catheter in over wire. Redirected to the MCDONOUGH. MCDONOUGH to Diagonal visualized. Catheter redirected to the RCA. Multiple views taken of right coronary artery. Catheter redirected to the SVG'S. SVG to LAD visualized and patent. SVG's to OM visualized and patent. Catheter removed over the standard wire. A Right femoral angiogram was performed to determine safe placement of closure device. A 5 mongolian Angled Pig catheter in over wire. EDP Sample taken: LV 161/30,39; HR: 70 BPM; SpO2: 92%. EDP Sample taken: LV 160/11,32; HR: 81 BPM; SpO2: 96%. Pullback taken: LV 153/7,30; AO 160/86(113); Mean: 0mmHg, Peak to Peak: 1mmHg, SEP: 18sec/min; HR: 81 BPM; SpO2: 97%. Catheter removed over the standard wire. Dr Kelly here to review films and Perclose the Access sites. Dr Kelly scrubbed in. Dr Lorenzo scrubbed out. A Right femoral angiogram was performed in [place] to determine safe placement of closure device. Post-op diagnosis: Patent grafts. Total occlusion of LAD and PLV branch. Complications: None. A Perclose (Delivery Agent) was successful obtaining hemostatsis at the Right Femoral artery insertion site. Perclose placed without complications. No signs or symptoms of hematoma noted. Sterile dressing applied per usual sterile fashion. Post Procedure: Pulses reassessed and unchanged. PERRLA. Strong, equal hand environmental emergencies assistant bilaterally. No VTE prophylaxis required. Medication's Wasted: Lidocaine 1% = 2 mL. Medication's Wasted: Versed = 1 mg. Medication's Wasted: Heparin = 4500 units. Medication's Wasted: Labetalol = 90 mg. Total IV fluids: 44.4 mL. Fluoro: 8:06. Contrast type used: Omnipaque 300 mg/mL, 150 mL bottle. Omnipaque 150 ml. Estimated blood loss: 5mL-10mL. Perclose: LOT # [id number] EXP 07/21/2022 ARTERIAL. Patient transferred by bed to 1st floor. Procedure completed. Perclose to venous attempted but decided against. Removed and manual pressure held until hemostasis achieved. A Manual Compression was successful obtaining hemostatsis at the Right Femoral vein insertion site. Access Site Site: Right Femoral vein Sheath Size: 5 Fr Hemostasis Method: Manual Compression Hemostasis Success: Successful Site: Right Femoral artery Sheath Size: 5 Fr Hemostasis Method: Perclose (Delivery Agent) Hemostasis Success: Successful Procedure Medications Start: 4:45 PM Stop: 4:45 PM Medication: Versed Amount: 1 mg Route: I.V. Start: 4:45 PM Stop: 4:45 PM Medication: Fentanyl Amount: 50 mcg Route: I.V. Start: 5:02 PM Stop: 5:02 PM Medication: Versed Amount: 1 mg Route: I.V. Start: 5:02 PM Stop: 5:02 PM Medication: Fentanyl Amount: 50 mcg Route: I.V. Start: 5:10 PM Stop: 5:10 PM Medication: Heparin Amount: 1500 units Route: I.V. Start: 5:11 PM Stop: 5:11 PM Medication: Versed Amount: 1 mg Route: I.V. Start: 5:29 PM Stop: 5:29 PM Medication: Labetalol (Trandate) Amount: 10 mg Route: I.V. I, the attending physician, have reviewed and verified all procedure medications. Yes, all medications given per verbal order History/Risk Factors Hypertension: Yes Dyslipidemia: Yes Peripheral Arterial Disease (PAD): No Myocardial Infarction (NH): No Obesity: No Renal Disease: No Tobacco Use: Never Prior Interventions PCI: No CABG: No Valve Surgery: No Report Signatures Finalized by Dr Parker Lorenzo MD [facility] on 02/07/2021 09:42 PM
[2021-02-07 16:38] LABS: Glucose Point of Care 194 mg/dL (70-110)
[2021-02-07 18:21] LABS: Glucose Point of Care 222 mg/dL (70-110)
[2021-02-07] MEDS: sodium chloride 0.9% 1,000 ML 100 ML IV (18:21)
--- NOTE | 2021-02-07 18:27 | PC.NURSE ---
to cardiac tailings dam laborer at 1630 via bed.return from cardiac tailings dam laborer at 1810.report received.pt is drowsy but easily awakened.sr on monitor.bp stable.o2 sat in 80's ,so o2 placed on pt at 3 l per nc.sats increased to 90's.sheath was pulled in tailings dam laborer and site perclosed.right groin with drsg dry and intact.no hematoma noted.right leg is warm to touch and with brisk capillary refill.palpable right dp pulse noted.instructed in activity restrictions s/p femoral procedure..and instructed to notify staff for any bleeding,pain,numbness..or for any concerns at all.pt verb understanding of instructions
[2021-02-07] MEDS: acetaminophen 325 mg Tablet 650 MG PO (19:34)
[2021-02-07] MEDS: insulin lispro 100 unit/1 mL SUBCUT (21:39)
[2021-02-07] MEDS: prazosin 1 mg Capsule 2 MG PO (21:40)
[2021-02-07] MEDS: morphine 4 mg/mL SDV 1 mL 2 MG IVP (22:38)
[2021-02-08] VITALS (8 sets, daily range): BP systolic 117–165; BP diastolic 68–86; PULSE 72–81; RESP 12–25; TEMP 36.2–36.8; O2SAT 94–96
[2021-02-08] MEDS: LORazepam 2 mg/mL INJ 1 mL 0.5 MG IVP (00:18)
[2021-02-08 05:40] LABS: Basophils % 0.3 %; Eosinophils % 0.2 %; Hematocrit 35.8 % (37.0-47.0); Hemoglobin 11.1 g/dL (11.5-15.3); Lymphocytes # 0.6 10^3/uL (0.8-4.8); Lymphocytes % 10.3 %; Mean Corpuscular Hemoglobin 25.6 pg (28.0-34.0); Mean Corpuscular Volume 82.7 fl (81-99); Mean Platelet Volume 11.1 fL (7.4-10.4); Monocytes # 0.1 10^3/uL (0.2-0.9); Monocytes % 1.3 %; Neutrophils # 5.26 10^3/uL (1.8-7.7); Neutrophils % 87.2 %; Nucleated Red Blood Cells % 0 %; Platelet Count 217 10^3/cmm (130-400); Red Blood Count 4.33 10^6/uL (4.1-5.3); Red Cell Distribution Width 13.2 % (12.1-15.1)
[2021-02-08 06:08] LABS: Anion Gap 16.4 (5-19); Blood Urea Nitrogen 23 mg/dL (6-20); Calcium 8.4 mg/dL (8.5-10.5); Carbon Dioxide 25 mmol/L (22-29); Chloride 99 mmol/L (98-107); Glomerular Filtration Rate 65.2 mL/min (90-130); Glucose 409 mg/dL (65-115); Osmolality Calculated 303 mOsm/kg (285-295); Potassium 4.4 mmol/L (3.5-5.1); Sodium 136 mmol/L (136-145)
[2021-02-08 06:31] LABS: Glucose Point of Care 434 mg/dL (70-110)
[2021-02-08] MEDS: FUROsemide 40 mg Tablet 80 MG PO (08:16)
[2021-02-08] MEDS: ropinirole 1 mg Tablet 2 MG PO (08:16)
[2021-02-08] MEDS: atorvastatin 40 mg Tablet 80 MG PO (08:17)
[2021-02-08] MEDS: aspirin 81 mg EC Tablet PO (08:17)
[2021-02-08] MEDS: insulin lispro 100 unit/1 mL SUBCUT (08:18)
[2021-02-08] MEDS: carvedilol 25 mg Tablet PO (08:18)
[2021-02-08] MEDS: clopidogrel 75 mg Tablet PO (08:18)
[2021-02-08] MEDS: amlodipine 5 mg Tablet PO (08:18)
[2021-02-08] MEDS: duloxetine 60 mg Capsule PO (08:18)
[2021-02-08] MEDS: pantoprazole DR 40 mg Tablet PO (08:18)
--- NOTE | 2021-02-08 08:37 | PM.PN ---
Subjective Subjective: Interval history: Patient is still having some chest tightness/heaviness. The symptoms are improving. Vital signs are stable. Remains afebrile. Medications: Reviewed: Yes Medication Review Details: Current Medications Acetaminophen (Acetaminophen 325 Mg Tablet) 650 mg PO Q6H PRN PRN Reason: MILD PAIN Last Admin: 02/07/21 19:34 Dose: 650 mg Documented by: Al Hydrox/Mg Hydrox/Simethicone (Nlew-Ujq-Vrwxtlmsx-Jeff 30 Ml Udc) 30 ml PO Q15M PRN PRN Reason: INDIGESTION Albuterol Sulfate (Albuterol 2.5 Mg/0.5 Ml Neb) 2.5 mg INHALATION Q4H.RESPIRATORY PRN PRN Reason: SHORTNESS OF BREATH Amlodipine Besylate (Amlodipine 5 Mg Tablet) 5 mg PO DAILY [facility] Last Admin: 02/08/21 08:18 Dose: 5 mg Documented by: Aspirin (Aspirin 81 Mg Ec Tablet) 81 mg PO DAILY [facility] Last Admin: 02/08/21 08:17 Dose: 81 mg Documented by: Atorvastatin Calcium (Atorvastatin 40 Mg Tablet) 80 mg PO DAILY [facility] Last Admin: 02/08/21 08:17 Dose: 80 mg Documented by: Atropine Sulfate (Atropine 1 Mg/Ml Sdv 1 Ml) 0.5 mg IVP PRN PRN PRN Reason: Symptomatic bradycardia Calcium Carbonate (Calcium Carbonate 500 Mg Chew Tablet) 1,000 mg PO Q4H PRN PRN Reason: DYSPEPSI Carvedilol (Carvedilol 25 Mg Tablet) 25 mg PO BID [facility] Last Admin: 02/08/21 08:18 Dose: 25 mg Documented by: Clopidogrel Bisulfate (Clopidogrel 75 Mg Tablet) 75 mg PO DAILY [facility] Last Admin: 02/08/21 08:18 Dose: 75 mg Documented by: Dextrose (Dextrose 50% Syringe 50 Ml) 25 ml IVP ONCE PRN; Protocol PRN Reason: hypoglycemia protocol Dextrose (Dextrose 50% Syringe 50 Ml) 50 ml IVP PRN PRN; Protocol PRN Reason: hypoglycemia protocol Duloxetine HCl (Duloxetine 60 Mg Capsule) 60 mg PO BID [facility] Last Admin: 02/08/21 08:18 Dose: 60 mg Documented by: Furosemide (Furosemide 40 Mg Tablet) 80 mg PO DAILY [facility] Last Admin: 02/08/21 08:16 Dose: 80 mg Documented by: Gabapentin (Gabapentin 400 Mg Capsule) 1,200 mg PO TID [facility] Last Admin: 02/07/21 21:39 Dose: 1,200 mg Documented by: Glucagon (Glucagon 1 Mg/Ml Inj 1 Ml) 1 mg IM ONCE PRN; Protocol PRN Reason: Adult Acute Hypoglycemia Prot. Dextrose (D5w) 500 mls @ 100 mls/hr IV ONCE PRN; Protocol PRN Reason: Adult Acute Hypoglycemia Prot Sodium Chloride (Sodium Chloride 0.9%) 1,000 mls @ 125 mls/hr IV .Q8H [facility] Last Admin: 02/08/21 07:30 Dose: Not Given Documented by: Sodium Chloride (Sodium Chloride 0.9%) 1,000 mls @ 100 mls/hr IV .Q10H [facility] Last Admin: 02/08/21 07:30 Dose: Not Given Documented by: Insulin Human Lispro (Insulin Lispro 100 Unit/1 Ml) 0 unit SUBCUT WM&BEDTIME [facility]; Protocol Last Admin: 02/08/21 08:18 Dose: 18 unit Documented by: Lorazepam (Lorazepam 2 Mg/Ml Inj 1 Ml) 0.5 mg IVP Q4H PRN PRN Reason: ANXIETY Last Admin: 02/08/21 00:18 Dose: 0.5 mg Documented by: Magnesium Hydroxide (Magnesium Hydroxide 30 Ml Udc) 30 ml PO DAILY PRN PRN Reason: CONSTIPATION Naloxone HCl (Naloxone 0.4 Mg/Ml Sdv) 0.1 mg IVP Q2M PRN PRN Reason: OPIATERV Nitroglycerin (Nitroglycerin 0.4 Mg Sublingual Tablet) 0.4 mg SUBLINGUAL Q5M PRN PRN Reason: CHEST PAIN Last Admin: 02/06/21 08:20 Dose: 0.4 mg Documented by: Non-Formulary Medication (Insulin Glargine [Lantus Solostar U-100 Insulin]) 62 unit SUBCUT BID [facility] Last Admin: 02/07/21 18:22 Dose: Not Given Documented by: Ondansetron HCl (Ondansetron 2 Mg/Ml Sdv 2 Ml) 4 mg IVP Q8H PRN PRN Reason: vomiting, or N/V if npo Last Admin: 02/06/21 19:53 Dose: 4 mg Documented by: Pantoprazole Sodium (Pantoprazole Dr 40 Mg Tablet) 40 mg PO DAILY [facility] Last Admin: 02/08/21 08:18 Dose: 40 mg Documented by: Prazosin HCl (Prazosin 1 Mg Capsule) 2 mg PO BEDTIME [facility] Last Admin: 02/07/21 21:40 Dose: 2 mg Documented by: Ropinirole HCl (Ropinirole 1 Mg Tablet) 2 mg PO TID [facility] Last Admin: 02/08/21 08:16 Dose: 2 mg Documented by: Temazepam (Temazepam 15 Mg Capsule) 15 mg PO BEDTIME PRN PRN Reason: INSOMNIA Zonisamide (Zonisamide 100 Mg Capsule) 200 mg PO BEDTIME [facility] Last Admin: 02/07/21 22:32 Dose: Not Given Documented by: Vitals/I&O/Wt Last Vital Signs Temp 97.7 F 02/08/21 07:11 Pulse 77 02/08/21 07:11 Resp 16 02/08/21 07:11 BP 165/85 02/08/21 07:11 Pulse Ox 94 02/08/21 07:11 Weight last 48 hrs Weight 348 lb 4.8 oz Weight 348 lb 6 oz Physical Exam Narrative: EXAM NARRATIVE: GENERAL: The patient is alert and oriented times three. Not in any acute distress. Morbidly obese HEENT: No significant pallor, icterus or lymphadenopathy. The pupils are symmetrical. NECK: Trachea appears to be central. No masses noted. No JVD or thyromegaly appreciated. No carotid bruit. RESPIRATORY: Chest is symmetrical. No intercostals muscle retraction or any accessory muscle activation. There is no chest wall tenderness. Breath sounds are heard bilaterally. No rales or rhonchi heard. No evidence of any consolidation. BREASTS: Deferred. HEART: The PMI could not be palpated no palpable precordial events. S1 and S2 are normal. No S3 or S4 heard. No pericardial rub or any click heard. ABDOMEN: No vessel pulsations or distention. No tenderness. No organomegaly appreciated. No abdominal bruit. Bowel sounds are normally heard. : Deferred. RECTAL: Deferred. LYMPHATIC: No lymphadenopathy noted in the neck or groin. EXTREMITIES: 1-2+ edema both lower extremities. No cyanosis. MUSCULOSKELETAL: No acute joint deformities or swelling. SKIN: There are no significant scars or skin rash noted. NEUROPSYCHIATRIC: The patient is alert and oriented x3. Appears to be in a good mood. The higher functions are grossly within normal limits. No tremors or rigidity noted. Data : 11/18/21 04:15 02/08/21 04:15 Other Labs: Laboratory Last Values WBC 6.0 10^3/uL (4.0-10.0) 02/08/21 04:15 RBC 4.33 10^6/uL (4.1-5.3) 02/08/21 04:15 Hgb 11.1 g/dL (11.5-15.3) L 02/08/21 04:15 Hct 35.8 % (37.0-47.0) L 02/08/21 04:15 MCV 82.7 fl (81-99) 02/08/21 04:15 MCH 25.6 pg (28.0-34.0) L 02/08/21 04:15 MCHC 31.0 g/dL (30.0-36.0) 02/08/21 04:15 RDW 13.2 % (12.1-15.1) 02/08/21 04:15 Plt Count 217 10^3/cmm (130-400) 02/08/21 04:15 MPV 11.1 fL (7.4-10.4) H 02/08/21 04:15 Neut % (Auto) 87.2 % 02/08/21 04:15 Lymph % (Auto) 10.3 % 02/08/21 04:15 [place] % (Auto) 1.3 % 02/08/21 04:15 Eos % (Auto) 0.2 % 02/08/21 04:15 Baso % (Auto) 0.3 % 02/08/21 04:15 Neut # (Auto) 5.26 10^3/uL (1.8-7.7) 02/08/21 04:15 Lymph # (Auto) 0.6 10^3/uL (0.8-4.8) L 02/08/21 04:15 [place] # (Auto) 0.1 10^3/uL (0.2-0.9) L 02/08/21 04:15 Eos # (Auto) 0.0 10^3/uL (0.0-0.8) 02/08/21 04:15 Baso # (Auto) 0.0 10^3/uL (0.0-0.1) 02/08/21 04:15 Nucleated RBC % (auto) 0 % 02/08/21 04:15 Nucleated RBCs # 0.0 /100WBC 02/08/21 04:15 D-Dimer 0.38 ug/mIFEU (0-0.59) 02/06/21 01:30 Sodium 136 mmol/L (136-145) 02/08/21 04:15 Potassium 4.4 mmol/L (3.5-5.1) 02/08/21 04:15 Chloride 99 mmol/L (98-107) 02/08/21 04:15 Carbon Dioxide 25 mmol/L (22-29) 02/08/21 04:15 Anion Gap 16.4 (5-19) 02/08/21 04:15 BUN 23 mg/dL (6-20) H 02/08/21 04:15 Creatinine 0.9 mg/dL (0.5-0.9) 02/08/21 04:15 GFR Calculation 65.2 mL/min (90-130) L 02/08/21 04:15 Glucose 409 mg/dL (65-115) H 02/08/21 04:15 POC Glucose 434 mg/dL (70-110) H 02/08/21 06:08 Calculated Osmolality 303 mOsm/kg (285-295) H 02/08/21 04:15 Calcium 8.4 mg/dL (8.5-10.5) L 02/08/21 04:15 Total Bilirubin 0.2 mg/dL (0.15-1.2) 02/07/21 02:36 AST 14 U/L (0-32) 02/07/21 02:36 ALT 13 U/L (0-33) 02/07/21 02:36 Alkaline Phosphatase 61 IU/L (35-105) 02/07/21 02:36 Troponin T Baseline 17 ng/L (0-10) H 02/06/21 02:50 Troponin T 120 Minute 16.73 ng/L (0-10) H 02/06/21 05:30 Delta Troponin T -0.27 ABS# (0-10) L 02/06/21 05:30 Troponin T Hi Sens 6Hr 16.39 ng/L (0-10) H 02/06/21 09:40 Troponin T Hi Sens 6Hr Delta -0.61 ng/L (0-12) L 02/06/21 09:40 NT-Pro-B Natriuret Pep 133 pg/mL (0-125) H 02/06/21 02:45 Total Protein 6.6 g/dL (6.6-8.7) 02/07/21 02:36 Albumin 3.7 g/dL (3.5-5.2) 02/07/21 02:36 Globulin 2.9 g/dL (1.3-4.6) 02/07/21 02:36 TSH 6.36 uIU/mL (0.27-4.20) H 02/06/21 09:40 A&P Assessment and plan (1) Atherosclerotic heart disease of [place] coronary artery with unstable angina pectoris: Patient's clinical features are suggestive of unstable angina. We will try to get her medical records from [facility] and also from the [facility]. We will go ahead and do an echocardiogram to evaluate LV function and rule out any other pathology. We will try to get the stress test report from [facility]. May go ahead and start her on IV nitroglycerin and subcu Lovenox. Also may be started on IV nitroglycerin. Dose of the nitro may be titrated for chest pain. Currently the pain is getting better. She still has significant symptoms. Status: Acute (2) Diabetes: The blood sugar need to be closely monitored. Aggressive management of the diabetes would be appropriate. The blood sugar seems to be getting under control. Status: Acute Qualifiers: Diabetes mellitus complication status: without complication Diabetes mellitus snf insulin use: with termite control representative use Diabetes mellitus type: type 2 Qualified Code(s): E11.9 - Type 2 diabetes mellitus without complications; Z79.4 - [facility] (current) use of insulin (3) Hyperlipidemia: May continue on the current medications. Status: Acute Qualifiers: Hyperlipidemia type: mixed hyperlipidemia Qualified Code(s): E78.2 - Mixed hyperlipidemia (4) Hypertension: Blood pressure still stage II. We will continue to optimize the antihypertensive medications. Status: Acute Qualifiers: Hypertension type: primary hypertension Qualified Code(s): I10 - Essential (primary) hypertension Additional A&P Information In view of the patient's ongoing symptoms, she requires a cardiac catheterization to evaluate the coronary status as well as the graft status. We may go ahead and schedule this procedure today. The risk of bleeding, hematoma, vascular injury, myocardial infarction, CVA, renal failure and other concomitant complications were explained in detail. Patient understood this well and consented to proceed. Based on the angiogram findings, further recommendations will be made Attestations Medical Necessity Statement*: Patient requires continued hospital stay for close monitoring and further management Coding Level of Care Code Acute Chiropractic Practice Manager for Rosalio Fwd History Detailed Exam Detailed Medical Decision Making Moderate Complexity Diagnoses Atherosclerotic heart disease of [place] coronary artery with unstable angina pectoris I25.110 Diabetes E11.9; Z79.4 Diabetes mellitus complication status: without complication Diabetes mellitus snf insulin use: with termite control representative use Diabetes mellitus type: type 2 Hyperlipidemia E78.2 Hyperlipidemia type: mixed hyperlipidemia Hypertension I10 Hypertension type: primary hypertension
--- NOTE | 2021-02-08 08:53 | PM.DCS ---
Discharge Providers Date of Admission: 02/06/21 04:34 Date of Discharge: February 08, 2021 Attending Provider at Admission: Angeli Paul MD Attending Provider at Discharge: Erich Edouard MD Primary Care Provider: Kasandra Lopez NP Diagnoses at Discharge Discharge Diagnosis (1) Atherosclerotic heart disease of [place] coronary artery with unstable angina pectoris: Status: Acute (2) Diabetes: Status: Acute Qualifiers: Diabetes mellitus type: type 2 Diabetes mellitus assisted insulin use: with livestock farmworker use Diabetes mellitus complication status: without complication Qualified Code(s): E11.9 - Type 2 diabetes mellitus without complications; Z79.4 - group home (current) use of insulin (3) Hyperlipidemia: Status: Acute Qualifiers: Hyperlipidemia type: mixed hyperlipidemia Qualified Code(s): E78.2 - Mixed hyperlipidemia (4) Hypertension: Status: Acute Qualifiers: Hypertension type: primary hypertension Qualified Code(s): I10 - Essential (primary) hypertension Reason for Visit Reason for Visit: Chest Pains SOB Hospital Course Hospital Course Ju is a 55-year-old white female who presented to the hospital with chest discomfort. She has underlying history of coronary artery disease with bypass in the past. Troponins were not elevated, and EKG was nonacute. Secondary to ongoing chest discomfort cardiology was consulted. Angiogram was performed February 07, with overall no big changes from previous angiogram. This demonstrated total occlusion of mid LAD and PLV branch of the right coronary artery with high-grade lesion second obtuse marginal of the circumflex and moderate diffuse disease in proximal segments of diagonal arteries. 50% narrowing of right coronary artery at proximal segment. [place] to diagonal patent, saphenous vein graft to distal LAD patent, saphenous vein graft to obtuse marginal patent. Obtuse marginal artery distal to and a stenosis moderate diffuse disease. With these findings noted it was recommended the patient have continued medical management. Chest discomfort that has been ongoing and unrelenting did not appear cardiac, with higher likelihood of another source. Discussed with patient other etiologies of chest discomfort such as reflux, musculoskeletal discomfort, anxiety. Pulmonary embolism not likely with normal oxygen saturations, no tachycardia, normal D-dimer, negative venous duplex. She reports significant anxiety lately, which may be contributing. Hydroxyzine was added as needed. I did decrease some of her medications secondary to multiple medications affecting serotonin reuptake. She will follow-up with her primary care provider, and cardiology. She will hold her Metformin for 2 days secondary to angiogram. She was also referred to pulmonary secondary to pulmonary hypertension noted on echo, sleep apnea with need for further guidance of treatment, likely restrictive lung disease as well. 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 echo complete * [id number] Routine Ultrasound 02/06/21 08:32 Completed Labs from last 24 hours 02/08/21 02/08/21 02/08/21 06:08 04:15 04:15 WBC 6.0 RBC 4.33 Hgb 11.1 L Hct 35.8 L MCV 82.7 MCH 25.6 L MCHC 31.0 RDW 13.2 Plt Count 217 MPV 11.1 H Neut % (Auto) 87.2 Lymph % (Auto) 10.3 [place] % (Auto) 1.3 Eos % (Auto) 0.2 Baso % (Auto) 0.3 Neut # (Auto) 5.26 Lymph # (Auto) 0.6 L [place] # (Auto) 0.1 L Eos # (Auto) 0.0 Baso # (Auto) 0.0 Nucleated RBC % (a uto) 0 Nucleated RBCs # 0.0 Sodium 136 Potassium 4.4 Chloride 99 Carbon Dioxide 25 Anion Gap 16.4 BUN 23 H Creatinine 0.9 GFR Calculation 65.2 L Glucose 409 H POC Glucose 434 H Calculated Osmolal ity 303 H Calcium 8.4 L 02/07/21 02/07/21 02/07/21 18:15 16:05 11:33 WBC RBC Hgb Hct MCV MCH MCHC RDW Plt Count MPV Neut % (Auto) Lymph % (Auto) [place] % (Auto) Eos % (Auto) Baso % (Auto) Neut # (Auto) Lymph # (Auto) [place] # (Auto) Eos # (Auto) Baso # (Auto) Nucleated RBC % (a uto) Nucleated RBCs # Sodium Potassium Chloride Carbon Dioxide Anion Gap BUN Creatinine GFR Calculation Glucose POC Glucose 222 H 194 H 188 H Calculated Osmolal ity Calcium Vitals: Last Vital Signs Temp 97.7 F 02/08/21 07:11 Pulse 77 02/08/21 08:41 Resp 16 02/08/21 08:41 BP 165/85 02/08/21 07:11 Pulse Ox 95 02/08/21 08:41 Discharge Plan Discharge Patient Disposition: Home Condition: Stable Prescriptions: New hydroxyzine HCl 25 mg tablet 25 mg PO TID PRN (Reason: anxiety) Qty: 20 RF: 0 Continued aspirin 325 mg tablet 325 mg PO DAILY RF: 0 carvedilol 25 mg tablet 25 mg PO BID RF: 0 furosemide 40 mg tablet 40 mg PO DAILY RF: 0 multivitamin Tablet 1 tab PO DAILY RF: 0 nitroglycerin 0.4 mg tablet, sublingual 0.4 mg sublingual Q5M PRN (Reason: Chest Pain) RF: 0 pantoprazole 40 mg tablet,delayed release (DR/EC) 40 mg PO DAILY RF: 0 rosuvastatin 40 mg tablet 40 mg PO DAILY RF: 0 gabapentin 600 mg tablet See Rx Instructions .ROUTE .COMPLEX Qty: 90 RF: 3 metformin 500 mg tablet 500 mg PO BID RF: 0 ropinirole 1 mg tablet 2 mg PO TID RF: 0 prazosin 1 mg capsule 2 mg PO BEDTIME RF: 0 clopidogrel 75 mg tablet 75 mg PO DAILY RF: 0 amlodipine 5 mg tablet 5 mg PO DAILY RF: 0 zonisamide 100 mg capsule 200 mg PO BEDTIME RF: 0 isosorbide mononitrate 60 mg tablet extended release 24 hr 60 mg PO DAILY RF: 0 ergocalciferol (vitamin D2) 1,250 mcg (50,000 unit) capsule 1,250 mcg PO Q7D RF: 0 duloxetine 60 mg capsule,delayed release(DR/EC) 60 mg PO DAILY RF: 0 Tresiba FlexTouch U-100 100 unit/mL (3 mL) insulin pen 65 unit SUBCUT BID RF: 0 Humalog Victor Hugo KwikPen U-100 100 unit/mL insulin pen, half-unit See Rx Instructions .ROUTE .COMPLEX RF: 0 Changed escitalopram oxalate 20 mg tablet 20 mg PO DAILY Qty: 0 RF: 0 Discontinued trazodone 50 mg tablet 50 mg PO BEDTIME RF: 0 Discharge Orders: Discharge Order (Routine); Ordered 02/08/21 Ordered By: Erich Edouard Referrals: Kasandra Lopez NP [Primary Care Provider] - 4-7 days Parker Lorenzo MD [Physician] - 7-10 days (Okay to follow-up with nurse practitioner first visit if needed) Discharge Diet: Cardiac and Diabetic Discharge Activity: Increase activity as tolerated Patient Instructions: Hydroxyzine (By mouth) (Vistaril), Opioid Safety Activity Restrictions/Additional Instructions: Do not restart Metformin until February 10. Note that the trazodone has been discontinued, Lexapro decreased and dosed. This is to reduce overall serotonin reuptake inhibitor exposure Hydroxyzine prescribed as needed anxiety. Use sparingly. Keep follow-up with pulmonary, cardiology, primary care provider Please arrange follow-up with pulmonary for probable obesity hypoventilation, pulmonary hypertension, sleep apnea. Dr. Baltazar or Datar Reny discharge medicines with Dr. Lorenzo prior to patient leaving. Discharge Attestations Time Spent in Discharge Care*: greater than 30 min Quality Metrics Clinical Quality Measures During this hospital stay, did patient experience: None Coding Level of Care Code [facility] note Diagnoses Atherosclerotic heart disease of [place] coronary artery with unstable angina pectoris I25.110 Diabetes E11.9; Z79.4 Diabetes mellitus type: type 2 Diabetes mellitus livestock farmworker insulin use: with livestock farmworker use Diabetes mellitus complication status: without complication Hyperlipidemia E78.2 Hyperlipidemia type: mixed hyperlipidemia Hypertension I10 Hypertension type: primary hypertension
[2021-02-08] MEDS: gabapentin 400 mg Capsule 1200 MG PO (08:56)
[2021-02-08] MEDS: insulin glargine 100 units/1 mL 62 UNIT SUBCUT (10:29)
[2021-02-08] MEDS: isosorbide mononitrate ER 30 mg Tablet PO (10:29)
[2021-02-08 11:43] LABS: Glucose Point of Care 429 mg/dL (70-110)
== END 2021-02-08 12:30 | disposition home or self-care (01) ==
LOC: ER 05:17 → ER IP 07:10 → CSU 14:04
PROVIDERS: Internal Medicine Cardiovascular Disease; Admitting Provider Student in an Organized Health Care Education/Training Program; Emergency Provider Emergency Medicine; PCP Nurse Practitioner Family; Visit Provider Internal Medicine
DX: I25.110 Atherosclerotic heart disease of native coronary artery with unstable angina pectoris (principal); R07.9 Chest pain, unspecified; R06.00 Dyspnea, unspecified; R60.9 Edema, unspecified; E11.9 Type 2 diabetes mellitus without complications; I10 Essential (primary) hypertension; E78.2 Mixed hyperlipidemia; F41.9 Anxiety disorder, unspecified; Z79.4 Long term (current) use of insulin; Z95.1 Presence of aortocoronary bypass graft; Z79.82 Long term (current) use of aspirin; Z86.16 Personal history of COVID-19; Z82.49 Family history of ischemic heart disease and other diseases of the circulatory system; K21.9 Gastro-esophageal reflux disease without esophagitis
CPT/HCPCS: 36415; 36416; 71045; 80048; 80053; 82962; 83880; 84443; 84484; 85025; 85378; 93005; 93306; 93459; 93970; 94660; 96361; 96365; 96372; 96375; 96376; 99285; C1760; C1769; C1887; C1894; G0378; J1644; J1650; J1815 ×2; J2060; J2250; J2270; J2405; J2930; J3010; J3490; J7030; Q9967

== ENCOUNTER 2021-10-12 23:22 | Observation (INO) | payer OTHER, SELFPAY ==
--- NOTE | 2021-10-12 23:25 | ECG_ITS ---
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 Measurements Intervals [place] Rate: 76 P: 60 VA: 203 QRS: 31 QRSD: 87 T: 70 QT: 377 QTc: 426 Interpretive Statements SINUS RHYTHM NONSPECIFIC T-WAVE ABNORMALITY Compared to ECG 02/06/2021 08:14:46 No significant changes Electronically Signed On 10-13-2021 0:24:15 CDT by Feliberto Kelly M.D. [id number]
--- NOTE | 2021-10-12 23:25 | XRR_ITS ---
PROCEDURE INFORMATION: Exam: XR Chest Exam date and time: 10/12/2021 11:49 PM Age: 55 years old Clinical indication: Chest pressure; Prior surgery; Surgery type: Cabg; Patient HX: C/O chest pain; Additional info: Cp TECHNIQUE: Imaging protocol: Radiologic exam of the chest. Views: 1 view. COMPARISON: CR XR chest 1V portable [id number] 02/06/2021 2:34 AM FINDINGS: Lungs: There are some linear opacities present the lower hemithoraces bilaterally, mild bronchial wall thickening and mild indistinctness of the pulmonary vasculature, findings that could represent pulmonary edema. Pleural spaces: Unremarkable. No pleural effusion. No pneumothorax. Heart/Mediastinum: Unremarkable. No cardiomegaly. Bones/joints: Unremarkable. XR/XR chest 1V portable [id number] IMPRESSION: Mild indistinctness of the pulmonary vasculature, peribronchial cuffing and increased linear opacities in the mid lower hemithoraces, findings that may represent pulmonary edema.
[2021-10-12 23:43] VITALS: BP 195/99; PULSE 75; RESP 24; TEMP 36.8; O2SAT 96; BMI 47.0
[2021-10-12 23:47] LABS: Basophils % 0.7 %; Eosinophils # 0.4 10^3/uL (0.0-0.8); Eosinophils % 6.5 %; Hematocrit 37.6 % (37.0-47.0); Lymphocytes # 2.1 10^3/uL (0.8-4.8); Lymphocytes % 34.1 %; Mean Corpuscular HGB Conc 31.9 g/dL (30.0-36.0); Mean Corpuscular Hemoglobin 26.5 pg (28.0-34.0); Mean Platelet Volume 10.9 fL (7.4-10.4); Monocytes # 0.3 10^3/uL (0.2-0.9); Monocytes % 5.3 %; Neutrophils % 53.1 %; Nucleated Red Blood Cells % 0 %; Platelet Count 281 10^3/cmm (130-400); Red Blood Count 4.53 10^6/uL (4.1-5.3); Red Cell Distribution Width 13.1 % (12.1-15.1)
[2021-10-13] VITALS (40 sets, daily range): BP systolic 102–198; BP diastolic 61–100; PULSE 59–72; RESP 11–30; TEMP 36.4–36.6; O2SAT 93–100; BMI 51.0
[2021-10-13 00:17] LABS: Alanine Aminotransferase 25 U/L (0-33); Albumin Level 3.7 g/dL (3.5-5.2); Alkaline Phosphatase 94 IU/L (35-105); Anion Gap 15.9 (5-19); Aspartate Amino Transferase 18 U/L (0-32); Blood Urea Nitrogen 18 mg/dL (6-20); Calcium 9.2 mg/dL (8.5-10.5); Carbon Dioxide 26 mmol/L (22-29); Chloride 98 mmol/L (98-107); Globulin 2.9 g/dL (1.3-4.6); Glomerular Filtration Rate 65.2 mL/min (90-130); Glucose 208 mg/dL (65-115); Osmolality Calculated 290 mOsm/kg (285-295); Potassium 3.9 mmol/L (3.5-5.1); Sodium 136 mmol/L (136-145); Total Bilirubin 0.3 mg/dL (0.15-1.2); Total Protein 6.6 g/dL (6.6-8.7); Troponin(5th) Baseline 17 ng/L (0-10)
[2021-10-13] MEDS: ondansetron 2 mg/ML SDV 2 mL 4 MG IVP (00:19)
[2021-10-13] MEDS: aspirin 81 mg Chew Tablet 324 MG PO (00:19)
[2021-10-13] MEDS: nitroglycerin 0.4 mg sublingual Tablet SUBLINGUAL ×4 (00:21→04:41)
[2021-10-13 00:38] LABS: Lipase 16 U/L (13-60); NT Pro B Type Natriuretic Pept 77 pg/mL (0-125)
--- NOTE | 2021-10-13 01:25 | ECG_ITS ---
[facility] Test Date: 2021-10-13 Pat Name: Ju Anderson Department: Room: Gender: Female Sighter: : 1965 Requested By: Po Reeves Order Number: [id number] Lurdes MD: Parker Lorenzo M.D. Measurements Intervals [place] Rate: 73 P: 54 DE: 200 QRS: 17 QRSD: 84 T: 92 QT: 395 QTc: 437 Interpretive Statements SINUS RHYTHM NONSPECIFIC ST & T-WAVE ABNORMALITY Compared to ECG 10/12/2021 23:31:14 No significant changes Electronically Signed On 10-13-2021 20:19:09 CDT by Parker Lorenzo M.D. [id number]
[2021-10-13] MEDS: cloNIDine 0.1 mg Tablet PO (01:29)
[2021-10-13 01:34] LABS: Add Urine Microscopic? YES; Bilirubin Urine Neg (Negative); Blood Urine Neg (Negative); Glucose Urine UA Norm (Normal); Ketones Urine Negative (Negative); Leukocyte Esterase Urine 1+ (Negative); Nitrate Urine Negative (Negative); Protein Urine 3+ (Negative); Urine Appearance SL Hazy (CLEAR); Urine Color Yellow (Yellow); Urobilinogen Urine Neg (Negative); pH Urine 5 (5-7)
[2021-10-13 01:35] LABS: Add Urine Culture? No; Bacteria Urine 1+ /hpf; Mucus Urine 1+ /hpf; RBC Urine 0-4 /hpf (0-2); WBC Urine 25-40 /hpf (0-5)
--- NOTE | 2021-10-13 02:03 | W.ED.CHESTPA ---
HPI - Chest Pain General: Chief Complaint: Chest Pain Stated Complaint: Chest Pains Time Seen by Provider: 10/12/21 23:42 History of Present Illness: 55 yo female patient presents to the ER with chest pain, SOB and states her chest pain radiates into her right arm and jaw. the onset was 9pm while resting. Pt states she has significant cardiac hx with cardiac bypass in 2016. Pt states she has HTN and Type 2 DM. Pt is on Plavix. Pt deneis any fever, cough. Pt denies back pain or abd pain. Pt states she took her HTN meds this am. Pt states she lost her brother father and mother in 40s and 50s to heart attack. Associated symptoms: Deny abdominal pain, diaphoresis, fever(s), nausea, palpitations, syncope or vomiting Review of Systems Const: Denies: fever(s), chills, body aches, change in appetite, change in weight, fatigue, malaise or diaphoresis Eyes: Denies: change in vision, blurry vision, blind spots, photophobia, eye discomfort, eye discharge, eye redness, floaters or seeing flashes ENMT: Denies: throat pain, uvular edema, enlarged tonsils, odynophagia, hoarseness, mouth pain, swelling of lips/tongue, oral sores, bleeding gums, dental pain, dry mouth, ear or mastoid pain, ear discharge, change in hearing, tinnitus, disequilibrium, nasal discharge, nasal congestion, post nasal drip or sinus pain Card: Denies: palpitations, irregular heart rhythm, edema, swelling of feet/ankles, lightheadedness, syncope, pre-syncope, dyspnea on exertion, orthopnea, leg pain with exertion or acrocyanosis Resp: Denies: productive cough, non-productive cough, wheezing, stridor, pain on inspiration, change in phlegm color, hemoptysis or chest congestion GI: Denies: abdominal pain, nausea, vomiting, hematemesis, dysphagia, diarrhea, constipation, GI cramping, change in bowel habits or rectal pain : Denies: flank pain, difficulty voiding, dysuria, urinary frequency, urinary urgency, urinary hesitancy or hematuria Musc: Denies: neck pain, back pain, extremity pain, extremity swelling, joint pain, joint swelling, joint redness, joint warmth or deformity Skin/Breast: Denies: rash, pruritus, erythema, sores, new lesions, changes in skin color or dry skin Neuro: Denies: headache(s), numbness in extremities, weakness in extremities, sensory changes, lack of coordination, difficulty walking, frequent falls, dizziness, vertigo, confusion, behavioral changes, Slurred speech present, difficulty communicating thoughts or seizure-like activity Psych: Denies: anxiety, depression, suicidal ideation or homicidal ideation Endo: Denies: polyuria, polydipsia, tired all the time, cold intolerance, excessive sweating, flushing, hot flashes or heat intolerance Roger/Lymph: Denies: easy bruising, easy bleeding, petechiae, purpura, enlarged lymph nodes or tender lymph nodes All/Imm: Denies: urticaria, throat swelling, tongue swelling, facial swelling, acute wheezing or itchy eyes PFSH ED PFSH: Medical History Anxiety COVID-10 jan 2020 Diabetes GERD (gastroesophageal reflux disease) Hx of chest pain Hyperlipidemia Hypertension Insomnia Neuropathy Surgical History History of heart artery stent (~2016) History of open heart surgery (~2015) Social History Smoking and tobacco status: never smoked Second hand smoke exposure: No Lives independently: Yes Marital status: service: No Current occupational status: employed History of recent travel: No Current gender identity: Female Special chris needs: No Agree to transfusion: Yes Physical Exam Const: COMMON NORMALS: no acute distress, average body habitus, patient oriented x3, no limitations, healthy appearing, alert and well nourished HENMT: COMMON NORMALS: normocephalic, atraumatic, hearing grossly normal bilaterally, moist oral mucous membranes and oropharynx normal HEAD & SCALP: normocephalic and atraumatic THROAT: no uvular edema Neck/C-Spine: COMMON NORMALS: full ROM, no lymphadenopathy, supple, no meningeal signs, no JVD, Thyroid normal and No carotid bruits THYROID: Thyroid normal Lymph: LYMPHATIC: no lymphadenopathy noted and no lymphedema noted Chest: COMMONS NORMALS: normal inspection of the chest and normal palpation of entire chest wall Resp: COMMON NORMALS: normal respiratory effort, No retractions, No use of accessory muscles, clear to auscultation bilaterally and percussion normal AUSCULTATION: clear to auscultation bilaterally PERCUSSION: percussion normal Cardio: COMMON NORMALS: no JVD, regular rate and regular rhythm RATE: regular rate RHYTHM: regular rhythm GI: COMMON NORMALS: Normal to inspection, nondistended, normoactive bowel sounds present, Soft to palpation and non-tender PALPATION: Yes Soft to palpation : COMMON NORMALS: Yes no CVA tenderness BLADDER/KIDNEY EXAM: Yes no CVA tenderness Back/Pelvis: COMMON NORMALS: no CVA tenderness, thoracic and lumbar spine normal to inspection, no thoracic nor lumbar tenderness and thoraco-lumbar ROM normal Extremity: COMMON NORMALS: normal to inspection, full ROM and capillary refill normal Neuro: COMMON NORMALS: patient oriented x3, CN's II-XII intact bilaterally, moves all extremities, no focal motor deficits and no sensory deficits noted SENSORIUM/ORIENTATION: Yes alert MENINGEAL SIGNS: Yes no meningeal signs Psych: COMMON NORMALS: mental status grossly normal, Normal thought process present, cooperative, normal affect, speech normal, activity/motor behavior normal, denies hallucinations, denies homicidal ideation and denies suicidal ideation SPEECH: Yes normal speech THOUGHT PROCESS: Normal thought process present Skin: COMMON NORMALS: no rashes or lesions noted, no wounds, turgor normal, no jaundice, no petechiae and no mottling GENERAL SKIN EXAM: no rashes or lesions noted and turgor normal Course Vital Signs: Vital signs: Vital Signs Temperature 98.2 F 10/12/21 23:43 Pulse Rate 64 10/13/21 02:38 Respiratory Rate 17 10/13/21 02:38 Blood Pressure 182/100 10/13/21 02:38 Pulse Oximetry 94 10/13/21 02:38 MDM - Chest Pain Medical Decision Making Given patients significant cardiac history and intermittent chest pain, I will plan on bringing patient in for cardiac admission and observation. I did consult with Dr. Lorenzo who will plan on seeing patient today. Pt admitted at this time to Hospitalist. Patient and family aware. D-dimer pending at this time. Chest xray c/w pulmonary edema. there is no st elevation or depression noted on EKG. Pt was noted to be hypertensive. Pt given Nitro SL, Clonidine and Morphine and Blood pressure is 150s. Lab Data : 10/12/21 23:42 10/12/21 23:42 Radiology Impressions Chest X-Ray 10/12/21 23:25 IMPRESSION: Mild indistinctness of the pulmonary vasculature, peribronchial cuffing and increased linear opacities in the mid lower hemithoraces, findings that may represent pulmonary edema. Laboratory Results WBC 6.0 10^3/uL (4.0-10.0) 10/12/21 23:42 RBC 4.53 10^6/uL (4.1-5.3) 10/12/21 23:42 Hgb 12.0 g/dL (11.5-15.3) 10/12/21 23:42 Hct 37.6 % (37.0-47.0) 10/12/21 23:42 MCV 83.0 fl (81-99) 10/12/21 23:42 MCH 26.5 pg (28.0-34.0) L 10/12/21 23: MCHC 31.9 g/dL (30.0-36.0) 10/12/21 23:42 RDW 13.1 % (12.1-15.1) 10/12/21 23:42 Plt Count 281 10^3/cmm (130-400) 10/12/21 23:42 MPV 10.9 fL (7.4-10.4) H 10/12/21 23:42 Neut % (Auto) 53.1 % 10/12/21 23:42 Lymph % (Auto) 34.1 % 10/12/21 23:42 [place] % (Auto) 5.3 % 10/12/21 23:42 Eos % (Auto) 6.5 % 10/12/21 23:42 Baso % (Auto) 0.7 % 10/12/21 23:42 Neut # (Auto) 3.20 10^3/uL (1.8-7.7) 10/12/21 23:42 Lymph # (Auto) 2.1 10^3/uL (0.8-4.8) 10/12/21 23:42 [place] # (Auto) 0.3 10^3/uL (0.2-0.9) 10/12/21 23:42 Eos # (Auto) 0.4 10^3/uL (0.0-0.8) 10/12/21 23:42 Baso # (Auto) 0.0 10^3/uL (0.0-0.1) 10/12/21 23:42 Nucleated RBC % (auto) 0 % 10/12/21 23:42 Nucleated RBCs # 0.0 /100WBC 10/12/21 23:42 Sodium 136 mmol/L (136-145) 10/12/21 23:42 Potassium 3.9 mmol/L (3.5-5.1) 10/12/21 23:42 Chloride 98 mmol/L (98-107) 10/12/21 23:42 Carbon Dioxide 26 mmol/L (22-29) 10/12/21 23:42 Anion Gap 15.9 (5-19) 10/12/21 23:42 BUN 18 mg/dL (6-20) 10/12/21 23:42 Creatinine 0.9 mg/dL (0.5-0.9) 10/12/21 23:42 GFR Calculation 65.2 mL/min (90-130) L 10/12/21 23:42 Glucose 208 mg/dL (65-115) H 10/12/21 23:42 Calculated Osmolality 290 mOsm/kg (285-295) 10/12/21 23:42 Calcium 9.2 mg/dL (8.5-10.5) 10/12/21 23:42 Total Bilirubin 0.3 mg/dL (0.15-1.2) 10/12/21 23:42 AST 18 U/L (0-32) 10/12/21 23:42 ALT 25 U/L (0-33) 10/12/21 23:42 Alkaline Phosphatase 94 IU/L (35-105) 10/12/21 23:42 Troponin T Baseline 17 ng/L (0-10) H 10/12/21 23:42 Troponin T 120 Minute 19.13 ng/L (0-10) H 10/13/21 01:54 Delta Troponin T 2.13 ABS# (0-10) 10/13/21 01:54 NT-Pro-B Natriuret Pep 77 pg/mL (0-125) 10/12/21 23:42 Total Protein 6.6 g/dL (6.6-8.7) 10/12/21 23:42 Albumin 3.7 g/dL (3.5-5.2) 10/12/21 23:42 Globulin 2.9 g/dL (1.3-4.6) 10/12/21 23:42 Lipase 16 U/L (13-60) 10/12/21 23:42 Urine Color Yellow (Yellow) 10/13/21 01:19 Urine Appearance Sl hazy (CLEAR) 10/13/21 01:19 Urine pH 5 (5-7) 10/13/21 01:19 Ur Specific [place] 1.020 (1.005-1.030) 10/13/21 01:19 Urine Protein 3+ (Negative) H 10/13/21 01:19 Urine Glucose (UA) Norm (Normal) 10/13/21 01:19 Urine Ketones Negative (Negative) 10/13/21 01:19 Urine Blood Neg (Negative) 10/13/21 01:19 Urine Nitrate Negative (Negative) 10/13/21 01:19 Urine Bilirubin Neg (Negative) 10/13/21 01:19 Urine Urobilinogen Neg mg/dL (Negative) 10/13/21 01:19 Ur Leukocyte Esterase 1+ (Negative) H 10/13/21 01:19 Urine RBC 0-4 /hpf (0-2) H 10/13/21 01:19 Urine WBC 25-40 /hpf (0-5) H 10/13/21 01:19 Ur Squamous Epith Cells 10-15 /hpf (0-5) H 10/13/21 01:19 Amorphous Sediment Not Reportable 10/13/21 01:19 Urine Bacteria 1+ /hpf (NONE) H 10/13/21 01:19 Urine Mucus 1+ /hpf 10/13/21 01:19 Discharge Plan Discharge Condition: Stable Prescriptions: No Action aspirin 325 mg tablet 325 mg PO DAILY 0RF carvedilol 25 mg tablet 25 mg PO BID 0RF Rx Instructions: must administer with a meal/food furosemide 40 mg tablet 40 mg PO DAILY 0RF multivitamin Tablet 1 tab PO DAILY 0RF nitroglycerin 0.4 mg tablet, sublingual 0.4 mg sublingual Q5M PRN (Reason: Chest Pain) 0RF Rx Instructions: do not exceed 3 doses per episode pantoprazole 40 mg tablet,delayed release (DR/EC) 40 mg PO DAILY 0RF rosuvastatin 40 mg tablet 40 mg PO DAILY 0RF gabapentin 600 mg tablet See Rx Instructions .ROUTE .COMPLEX Qty: 90 3RF Dose Instruction: TAKE ONE TABLET BY MOUTH THREE TIMES DAILY Rx Instructions: TAKE ONE TABLET BY MOUTH THREE TIMES DAILY metformin 500 mg tablet 500 mg PO BID 0RF ropinirole 1 mg tablet 2 mg PO TID 0RF prazosin 1 mg capsule 2 mg PO BEDTIME 0RF clopidogrel 75 mg tablet 75 mg PO DAILY 0RF zonisamide 100 mg capsule 200 mg PO BEDTIME 0RF isosorbide mononitrate 60 mg tablet extended release 24 hr 60 mg PO DAILY 0RF ergocalciferol (vitamin D2) 1,250 mcg (50,000 unit) capsule 1,250 mcg PO Q7D 0RF Rx Instructions: TAKE ON FRIDAY duloxetine 60 mg capsule,delayed release(DR/EC) 60 mg PO DAILY 0RF Tresiba FlexTouch U-100 100 unit/mL (3 mL) insulin pen 65 unit SUBCUT BID 0RF Humalog Victor Hugo KwikPen U-100 100 unit/mL insulin pen, half-unit See Rx Instructions .ROUTE .COMPLEX 0RF Rx Instructions: PER SLIDING SCALE hydroxyzine HCl 25 mg tablet 25 mg PO TID PRN (Reason: anxiety) Qty: 20 0RF escitalopram oxalate 20 mg tablet 20 mg PO DAILY Qty: 0 0RF Ranexa 500 mg tablet extended release 12 hr 500 mg PO BID Qty: 60 3RF amlodipine 5 mg tablet 10 mg PO DAILY Qty: 0 0RF Referrals: Kasandra Lopez NP [Primary Care Provider] - Coding Level of Care Code ED Trailer Mechanic for Chg Fwd Exam Comprehensive
[2021-10-13] MEDS: morphine 4 mg/mL SDV 1 mL IVP ×5 (02:22→19:54)
[2021-10-13 02:24] LABS: Troponin 5 2HR 19.13 ng/L (0-10); Troponin 5 2HR Delta 2.13 ABS# (0-10)
[2021-10-13 03:02] LABS: D Dimer 0.44 ug/mIFEU (0-0.59)
--- NOTE | 2021-10-13 03:48 | P.HP_ITS ---
Providers/Chief Complaint Admitting Physician: Mauricio Laurent Primary Care Provider: Kasandra Lopez NP Chief Complaint: Chest Pains History of Present Illness Pleasant 55-year-old lady with history of CAD, CABG, HTN, DM2, ANGELITO, diagnosed, but seems due to some missing parts never received her CPAP, reports that over the last several weeks she has been trying to walk around [place] to increase her activity, try to improve her blood glucose, however, has started experiencing pressure symptoms with exertion. Then last night was having chest pain even at rest, which starts in the center, radiates to the right side toward the back and up toward the right side jaw. She states the pain is reminiscent of the same pain she had when she had her heart issues in the past. She states she took some nitroglycerin, although did not really relieve the pain. She does feel that the morphine did help with the pain. She denies that the pain is triggered with moving around of her torso or arms, is not triggering palpation, it is not triggered by breathing. She denies that it feels like heartburn. She does report that recently she additionally has been having more dyspnea laying flat in her bed and has been having to raise the head of bed in bed with sleep. She has been taking Lasix, and denies any peripheral edema. Review of Systems Const: Denies: fever(s), chills, body aches or malaise Eyes: Denies: change in vision, eye discomfort or eye redness ENMT: Denies: throat pain, oral sores or ear or mastoid pain Card: Reports: chest pain and orthopnea; Denies: edema, pre-syncope or dyspnea on exertion Resp: Reports: other (PND); Denies: dyspnea, productive cough, change in phlegm color or hemoptysis GI: Denies: abdominal pain, nausea, vomiting, diarrhea, constipation, hematochezia or melena : Denies: flank pain, urinary frequency or hematuria Musc: Denies: back pain, joint swelling or joint redness Skin/Breast: Denies: rash or new lesions Neuro: Denies: headache(s), numbness in extremities, weakness in extremities, dizziness, confusion or seizure-like activity Endo: Denies: polyuria or polydipsia Roger/Lymph: Denies: easy bleeding or tender lymph nodes All/Imm: Denies: urticaria or tongue swelling Medications/Allergies Home Medications Medication Instructions Recorded Confirmed Last Taken Type aspirin 325 mg tablet 325 mg PO DAILY 09/20/20 02/06/21 02/05/21 History carvedilol 25 mg tablet 25 mg PO BID 09/20/20 02/06/21 02/05/21 History furosemide 40 mg tablet 40 mg PO DAILY 09/20/20 02/06/21 02/05/21 History multivitamin 1 tab PO DAILY 09/20/20 02/06/21 02/05/21 History nitroglycerin 0.4 mg sublingual 0.4 mg SUBLINGUAL Q5M PRN 09/20/20 02/06/21 10/14/20 History tablet pantoprazole 40 mg tablet,delayed 40 mg PO DAILY 09/20/20 02/06/21 02/05/21 History release rosuvastatin 40 mg tablet 40 mg PO DAILY 09/20/20 02/06/21 02/05/21 History clopidogrel 75 mg tablet 75 mg PO DAILY 10/17/20 02/06/21 02/05/21 History duloxetine 60 mg capsule,delayed 60 mg PO DAILY 10/17/20 02/06/21 02/05/21 History release ergocalciferol (vitamin D2) 1,250 1,250 mcg PO Q7D 10/17/20 02/06/21 02/05/21 History mcg (50,000 unit) capsule isosorbide mononitrate 60 mg 60 mg PO DAILY 10/17/20 02/06/21 02/05/21 History tablet,extended release 24 hr metformin 500 mg tablet 500 mg PO BID 10/17/20 02/06/21 02/05/21 History prazosin 1 mg capsule 2 mg PO BEDTIME 10/17/20 02/06/21 02/05/21 History ropinirole 1 mg tablet 2 mg PO TID 10/17/20 02/06/21 02/05/21 History zonisamide 100 mg capsule 200 mg PO BEDTIME 10/17/20 02/06/21 02/05/21 History gabapentin 600 mg tablet See Rx Instructions .ROUTE 01/12/21 02/06/21 02/05/21 Rx .COMPLEX #90 tab insulin degludec 100 unit/mL (3 65 unit SUBCUT BID 02/06/21 02/06/21 02/06/21 History mL) subcutaneous pen (Tresiba FlexTouch U-100 insulin) insulin lispro 100 unit/mL See Rx Instructions .ROUTE .COMPLEX 02/06/21 02/06/21 Unknown History subcutaneous half-unit pen (Humalog Victor Hugo KwikPen (U-100)) amlodipine 5 mg tablet 10 mg PO DAILY #0 tab 02/08/21 02/06/21 02/05/21 Rx escitalopram oxalate 20 mg tablet 20 mg PO DAILY #0 tab 02/08/21 02/06/21 02/05/21 Rx hydroxyzine HCl 25 mg tablet 25 mg PO TID PRN #20 tab 02/08/21 Unknown Rx ranolazine 500 mg tablet,extended 500 mg PO BID #60 tab 02/08/21 Unknown Rx release,12 hr (Ranexa) Allergies Allergy/AdvReac Type Severity Reaction Status Date / Time PAULETTE Inhibitors Allergy cough Verified 10/30/20 13:11 codeine Allergy hives Verified 10/30/20 13:11 hydromorphone Allergy rash, Verified 10/30/20 13:11 confusion, hallucinations meperidine Allergy confusion Verified 10/30/20 13:11 contrast media Allergy hives Uncoded 10/17/20 10:07 PFSH Acute PFSH: Medical History Anxiety CAD (coronary artery disease) COVID-10 jan 2020 Diabetes GERD (gastroesophageal reflux disease) Hx of chest pain Hyperlipidemia Hypertension Insomnia Neuropathy ANGELITO (obstructive sleep apnea) Surgical History History of heart artery stent (~2017) History of open heart surgery (~2015) Hx of CABG Family History Other CAD (coronary artery disease) Social History Smoking and tobacco status: never smoked Second hand smoke exposure: No Lives independently: Yes Marital status: service: No Current occupational status: employed History of recent travel: No Current gender identity: Female Special chris needs: No Agree to transfusion: Yes Vitals/I&O/Wt Last Vital Signs Temp 98.2 F 10/12/21 23:43 Pulse 66 10/13/21 02:53 Resp 14 10/13/21 02:53 BP 167/97 10/13/21 02:53 Pulse Ox 95 10/13/21 02:53 Weight last 48 hrs Weight 136.078 kg Physical Exam Const: COMMON NORMALS: alert GENERAL APPEARANCE: cooperative NUTRITIONAL APPEARANCE: obese morbidly obese ORIENTATION/CONSCIOUSNESS: Yes awake HENMT: COMMON NORMALS: normocephalic, EAC's normal, Normal external nose present and moist oral mucous membranes HEAD & SCALP: normocephalic NOSE: Normal external nose present EXTERNAL AUDITORY CANAL: EAC's normal Neck/C-Spine: COMMON NORMALS: no meningeal signs Chest: CHEST: Yes Symmetrical chest wall rise Resp: COMMON NORMALS: clear to auscultation bilaterally AUSCULTATION: clear to auscultation bilaterally Cardio: COMMON NORMALS: regular rate, regular rhythm and No murmurs present (Cardio) RATE: regular rate RHYTHM: regular rhythm GI: COMMON NORMALS: Normal to inspection, nondistended, normoactive bowel sounds present, Soft to palpation and non-tender PALPATION: Yes Soft to palpation Extremity: COMMON NORMALS: no pedal edema Neuro: COMMON NORMALS: moves all extremities SENSORIUM/ORIENTATION: Yes alert MENINGEAL SIGNS: Yes no meningeal signs Psych: COMMON NORMALS: mental status grossly normal Skin: COMMON NORMALS: no wounds RASHES: no rashes Data : 10/12/21 23:42 10/12/21 23:42 A&P Assessment and plan (1) Chest pain: Recently has been having chest pressure with exertion, but last night starting around 930 started having chest pain at rest, starting centrally, rating towards right side and back, right side Jaw. States it feels similar to pain she was having when she was having cardiac issues. Prior history of CAD, multiple stents, as well as CABG in 2016. History of HTN, HLD, ANGELITO for which has not been able to get CPAP yet, family history of CAD. Did not really respond to nitroglycerin, symptoms did appear to respond to morphine. Chest x-ray with noted some pulmonary edema. Hypertensive on presentation 198/95, improved with clonidine, down to 167/97. Nonspecific T wave normalities on EKG. Mild elevation of troponin 17-19. Continue aspirin, statin, beta-quinn. Monitor on telemetry. Assess TTE. Pending cardiology assessment. Pain for now has mostly resolved, down to 2/10. Continue Imdur, ranolazine. Has had no cough or hemoptysis, no unilateral leg swelling, D-dimer is normal, PE likelihood is low. Status: Acute Qualifiers: Chest pain type: unspecified Qualified Code(s): R07.9 - Chest pain, unspecified (2) ANGELITO (obstructive sleep apnea): She was diagnosed with ANGELITO while back by sleep study, with recommendation for CPAP, however, it appears due to some lacking parts was never set up with CPAP. Still has not received the machine. Request this medical consultation to see if the situation can be helped. She does have some claustrophobia, but she states she tolerated CPAP with nasal pillows. Status: Acute (3) CAD (coronary artery disease): Status: Acute (4) Pulmonary edema: And she has no peripheral edema, normal BNP, I do suspect that the pulmonary edema and orthopnea are due to negative pressure pulmonary edema with untreated ANGELITO. She does not appear to have fluid overload compared to baseline and she states that unexpectedly her legs are not swollen at all which usually there would be especially hot weather like currently. Will continue only her usual dose of Lasix at this time. Request nightly CPAP which she tolerates with nasal pillows, which hopefully we have. Status: Acute (5) Abnormal urinalysis: 25-14 WBCs in urine, but with 10-15 squamous epithelial cells, without urinary symptoms, suspect this is more contamination. We will request urine culture, although no antibiotics for now. Status: Acute (6) Hypertension: Hypertensive on presentation, unclear if this may have been contributing to her chest pain as well with possible hypertensive urgency. Blood pressure improved with treatment of chest pain, as well as with a dose of clonidine. Continue amlodipine, carvedilol, Imdur. Monitor blood pressure, continue to optimize control. Status: Acute Qualifiers: Hypertension type: primary hypertension Qualified Code(s): I10 - Essential (primary) hypertension Plan DM2 with neuropathy HTN HLD GERD Her medications need to be confirmed, please review and reorder once this is done. Attestations Medical Necessity Statement*: Place in observation for additional assessment of management of chest pain episode in a lady with history and risk factors of CAD, possible pulmonary edema. Coding Level of Care Code Acute Communications Designer for Chg Fwd Diagnoses Chest pain R07.9 Chest pain type: unspecified Abnormal urinalysis R82.90 ANGELITO (obstructive sleep apnea) G47.33 Pulmonary edema J81.1 Hypertension I10 Hypertension type: primary hypertension CAD (coronary artery disease) I25.10
--- NOTE | 2021-10-13 04:13 | USCV_ITS ---
Ju Anderson Age: 55 Gender: F : 1965 Exam Date: 10/13/2021 04:43 Ordering Phys: Mauricio Laurent MD Technologist: Shankar Garsia [place] [facility] [place]: chest pain / orthopnea BP: 167 / 97 HR: 68 Rhythm: Sinus Technical Quality: Technically difficult study MEASUREMENTS (Male / Female) Normal Values 2D ECHO LV Diastolic Diameter PLAX 3.7 cm 4.2 - 5.9 / 3.9 - 5.3 cm LV Systolic Diameter PLAX 2.5 cm IVS Diastolic Thickness 2.1 cm 0.6 - 1.0 / 0.6 - 0.9 cm IVS Systolic Thickness 2.4 cm LVPW Diastolic Thickness 1.6 cm 0.6 - 1.0 / 0.6 - 0.9 cm LVPW Systolic Thickness 2.1 cm LV Ejection Fraction 2D Teich 59.7 % LV Ejection Fraction MOD 2C 42.7 % LV Ejection Fraction 2C AL 42.6 % LA Diameter 3.6 cm M-MODE Aortic Annulus Diameter 2.4 cm LA Ao Ratio MM 1.7 MV E Point Septal Separation 0.4 cm FINDINGS Left Ventricle Normal left ventricular size and systolic function, EF 57 %. No regional wall motion abnormalities. Possibly of normal size Right Ventricle Possibly of normal size and ejection fraction Right Atrium Right atrium not well visualized. Left Atrium Appears to be mildly dilated Mitral Valve No gross abnormalities noted Aortic Valve Could not be visualized Tricuspid Valve Could not be visualized Pulmonic Valve Not visualized Pericardium No pericardial effusion. Aorta Normal aortic annulus size. IVC Inferior vena cava not visualized. CONCLUSIONS Technically difficult study because of the poor ultrasonic window. Echo contrast was used to visualize the left ventricle Possibly normal LV size with ejection fraction of 57%. No regional wall motion abnormalities. There is no pericardial effusion. Dr Parker Lorenzo MD FAC (Electronically Signed) Final Date: 13 October 2021 14:00 S
--- NOTE | 2021-10-13 05:25 | ECG_ITS ---
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 Measurements Intervals [place] Rate: 68 P: 48 MT: 191 QRS: 19 QRSD: 84 T: 64 QT: 394 QTc: 422 Interpretive Statements SINUS RHYTHM NONSPECIFIC T-WAVE ABNORMALITY Compared to ECG 10/13/2021 01:06:18 No significant changes Electronically Signed On 10-13-2021 20:19:12 CDT by Parker Lorenzo M.D. [id number] f
[2021-10-13] MEDS: enoxaparin 40 mg/0.4 mL Syringe SUBCUT (05:55)
[2021-10-13 06:56] LABS: Troponin 5 6HR 17.65 ng/L (0-10)
[2021-10-13 07:08] LABS: Troponin 5 6HR Delta 0.65 ng/L (0-12)
[2021-10-13] MEDS: perflutren protein-a microsphr 0.22 mg/mL SDV 3 mL IV (07:15)
[2021-10-13 08:50] LABS: Glucose Point of Care 209 mg/dL (70-110)
[2021-10-13] MEDS: amlodipine 5 mg Tablet 10 MG PO (08:53)
[2021-10-13] MEDS: aspirin 325 mg Tablet PO (08:55)
[2021-10-13] MEDS: atorvastatin 40 mg Tablet 80 MG PO (08:55)
[2021-10-13] MEDS: carvedilol 25 mg Tablet PO ×2 (08:56→17:41)
[2021-10-13] MEDS: FUROsemide 40 mg Tablet PO (08:57)
[2021-10-13] MEDS: clopidogrel 75 mg Tablet PO (08:57)
[2021-10-13] MEDS: pantoprazole DR 40 mg Tablet PO (08:58)
[2021-10-13] MEDS: ranolazine (12HR) 500 mg Tablet PO ×2 (08:58→17:41)
[2021-10-13] MEDS: insulin glargine 100 units/1 mL 45 UNIT SUBCUT ×2 (09:01→17:42)
[2021-10-13] MEDS: isosorbide mononitrate ER 60 mg Tablet PO (09:02)
--- NOTE | 2021-10-13 11:34 | PM.CONSULT ---
Providers/Reason For Consult Consulting Physician/Specialty*: Patricia Lorenzo MD/cardiology Reason for Consult*: Patient with chest pain/history of coronary artery bypass surgery/elevated troponin T Requesting Physician: Dr. Segovia Attending Physician: Sunita Segovia MD Primary Care Provider: Kasandra Lopez NP History of Present Illness History of Present Illness Ju Anderson is a 55 year old female with a history of coronary disease and coronary artery bypass surgery, presented with complaints of longer episode of chest pain. This patient apparently has been at her baseline state of health up until yesterday evening when she started having pain while being at home. The pain was in the upper substernal region, radiating to the back , to the shoulders and to the neck. The intensity the pain was moderate. She had some associated shortness of breath and nausea. She also had some headache, which continues. No significant palpitation, dizziness or syncopal episodes. She has no fever or chills. No cough. No other specific complaints. This patient is known to have coronary artery disease and a strong family history for premature atherosclerotic heart disease. She also is known to have diabetes and dyslipidemia. She had a four-vessel coronary bypass surgery at the [facility] in [place] in 2016. Prior to this, she had multiple PCI's. Following the bypass surgery, she had 2 more PCI's at 2 different times, 1 year apart. These were done in [place]. However the last 2 angiograms revealed no new blockages. It was decided to treat her medically. She was admitted to this hospital in January of last year with more or less similar symptoms. The catheterization at that time revealed the following findings. Based on the angiogram findings, it was decided to treat her medically. Apparently since the hospital discharge, she has been doing okay. She moved back to [place] at that time. Now she is back in the [place] area. Patient is known to have diabetes for the last more than 21 years. She also is known to have dyslipidemia. She has a strong family history for premature atherosclerotic heart disease. Her father had myocardial infarction in his 40s but lived up to the age of 80 and of aneurysm rupture. Her mother of myocardial infarction in her 60s. One of her brother had a myocardial infarction at the age of 52. All her paternal cousins in their 40s and 50s with myocardial infarction. An? younger? brother also is known to have heart issues. Other details are not available. At the time of examination, the Medications/Allergies Home Medications Medication Instructions Recorded Confirmed Last Taken Type aspirin 325 mg tablet 325 mg PO DAILY 09/20/20 10/13/21 02/05/21 History carvedilol 25 mg tablet 25 mg PO BID 09/20/20 10/13/21 02/05/21 History furosemide 40 mg tablet 40 mg PO DAILY 09/20/20 10/13/21 02/05/21 History multivitamin 1 tab PO DAILY 09/20/20 10/13/21 02/05/21 History nitroglycerin 0.4 mg sublingual 0.4 mg SUBLINGUAL Q5M PRN 09/20/20 10/13/21 10/14/20 History tablet pantoprazole 40 mg tablet,delayed 40 mg PO DAILY 09/20/20 10/13/21 02/05/21 History release rosuvastatin 40 mg tablet 40 mg PO DAILY 09/20/20 10/13/21 02/05/21 History clopidogrel 75 mg tablet 75 mg PO DAILY 10/17/20 10/13/21 02/05/21 History duloxetine 60 mg capsule,delayed 60 mg PO DAILY 10/17/20 10/13/21 02/05/21 History release ergocalciferol (vitamin D2) 1,250 1,250 mcg PO Q7D 10/17/20 10/13/21 02/05/21 History mcg (50,000 unit) capsule metformin 500 mg tablet 500 mg PO BID 10/17/20 10/13/21 02/05/21 History ropinirole 1 mg tablet 2 mg PO TID 10/17/20 10/13/21 02/05/21 History gabapentin 600 mg tablet See Rx Instructions .ROUTE 01/12/21 10/13/21 02/05/21 Rx .COMPLEX #90 tab insulin degludec 100 unit/mL (3 65 unit SUBCUT BID 02/06/21 10/13/21 02/06/21 History mL) subcutaneous pen (Tresiba FlexTouch U-100 insulin) amlodipine 5 mg tablet 10 mg PO DAILY #0 tab 02/08/21 10/13/21 02/05/21 Rx escitalopram oxalate 20 mg tablet 20 mg PO DAILY #0 tab 02/08/21 10/13/2102/05/21 Rx hydroxyzine HCl 25 mg tablet 25 mg PO BEDTIME PRN 10/13/21 10/13/21 Unknown History Allergies Allergy/AdvReac Type Severity Reaction Status Date / Time PAULETTE Inhibitors Allergy cough Verified 10/30/20 13:11 codeine Allergy hives Verified 10/30/20 13:11 hydromorphone Allergy rash, Verified 10/30/20 13:11 confusion, hallucinations meperidine Allergy confusion Verified 10/30/20 13:11 contrast media Allergy hives Uncoded 10/17/20 10:07 Current Medications Generic Name Dose Route Start Last Admin Trade Name Yamilex PRN Reason Stop Dose Admin Amlodipine Besylate 10 mg 10/13/21 09:00 10/13/21 08:53 Amlodipine 5 Mg Tablet PO 10 mg DAILY ROSA ELENA Administration Aspirin 325 mg 10/13/21 09:00 10/13/21 08:55 Aspirin 325 Mg Tablet PO 325 mg DAILY ROSA ELENA Administration Atorvastatin Calcium 80 mg 10/13/21 09:00 10/13/21 08:55 Atorvastatin 40 Mg Tablet PO 80 mg DAILY ROSA ELENA Administration Carvedilol 25 mg 10/13/21 09:00 10/13/21 08:56 Carvedilol 25 Mg Tablet PO 25 mg BID ROSA ELENA Administration Clopidogrel Bisulfate 75 mg 10/13/21 09:00 10/13/21 08:57 Clopidogrel 75 Mg Tablet PO 75 mg DAILY ROSA ELENA Administration Enoxaparin Sodium 40 mg 10/13/21 04:30 10/13/21 05:55 Enoxaparin 40 Mg/0.4 Ml Syringe SUBCUT 40 mg Q24H ROSA ELENA Administration Furosemide 40 mg 10/13/21 09:00 10/13/21 08:57 Furosemide 40 Mg Tablet PO 40 mg DAILY ROSA ELENA Administration Insulin Glargine 45 unit 10/13/21 09:00 10/13/21 09:01 Insulin Glargine 100 Units/1 Ml SUBCUT 45 unit BID ROSA ELENA Administration Insulin Human Lispro 0 unit 10/13/21 08:00 10/13/21 07:45 Insulin Lispro 100 Unit/1 Ml SUBCUT Not Given WM&BEDTIME ROSA ELENA Protocol Isosorbide Mononitrate 60 mg 10/13/21 09:00 10/13/21 09:02 Isosorbide Mononitrate Er 60 Mg Tablet PO 60 mg DAILY ROSA ELENA Administration Morphine Sulfate 4 mg 10/13/21 05:18 10/13/21 09:36 Morphine 4 Mg/Ml Sdv 1 Ml IVP 4 mg Q4H PRN Administration SEVERE PAIN Nitroglycerin 0.4 mg 10/12/21 23:51 10/13/21 04:41 Nitroglycerin 0.4 Mg Sublingual Tablet SUBLINGUAL 1 tab Q5M PRN Administration CHEST PAIN Pantoprazole Sodium 40 mg 10/13/21 09:00 10/13/21 08:[address] 40 Mg Tablet PO 40 mg DAILY ROSA ELENA Administration Ranolazine 500 mg 10/13/21 09:00 10/13/21 08:58 Ranolazine (12hr) 500 Mg Tablet PO 500 mg BID ROSA ELENA Administration PFSH Acute PFSH: Medical History Anxiety CAD (coronary artery disease) COVID-10 jan 2020 Diabetes GERD (gastroesophageal reflux disease) Hx of chest pain Hyperlipidemia Hypertension Insomnia Neuropathy ANGELITO (obstructive sleep apnea) Surgical History History of heart artery stent (~2016) History of open heart surgery (~2015) Hx of CABG Family History Other CAD (coronary artery disease) Social History Smoking and tobacco status: never smoked Second hand smoke exposure: No Lives independently: Yes Marital status: service: No Current occupational status: employed History of recent travel: No Current gender identity: Female Special chris needs: No Agree to transfusion: Yes Vitals/I&O/Wt Last Vital Signs Temp 97.5 F L 10/13/21 08:00 Pulse 67 10/13/21 08:10 Resp 18 10/13/21 09:36 BP 151/81 10/13/21 08:00 Pulse Ox 100 10/13/21 09:36 10/12/21 10/13/21 10/13/21 22:59 06:59 14:59 Intake Total 0 / 0 Balance 0 / 0 Weight last 48 hrs Weight 326 lb Weight 326 lb Weight 300 lb Physical Exam Narrative: GENERAL: The patient is alert and oriented times three. Not in any acute distress. Morbidly obese HEENT: No significant pallor, icterus or lymphadenopathy.Oral cavity: There are no mucous membrane lesions. NECK: Trachea appears to be central. No masses noted. No JVD or thyromegaly appreciated. RESPIRATORY: Chest is symmetrical. No intercostals muscle retraction or any accessory muscle activation. There is no chest wall tenderness. Breath sounds are heard bilaterally. No rales or rhonchi heard. No evidence of any consolidation. BREASTS: Deferred. HEART: The heart sounds are normal. No S3 or S4. No significant murmurs. No pericardial rub ABDOMEN: No vessel pulsations or distention. No tenderness. No organomegaly appreciated. Bowel sounds are normally heard. : Deferred. RECTAL: Deferred. LYMPHATIC: No lymphadenopathy noted in the neck. EXTREMITIES: Trace edema with no cyanosis. No clubbing. MUSCULOSKELETAL: No acute joint deformities or swelling SKIN: There are no significant rashes or ecchymosis NEUROPSYCHIATRIC: The patient is alert and oriented x3. Appears to be in a good mood. No tremors or rigidity noted. Data : 10/12/21 23:42 10/12/21 23:42 Other Labs: Laboratory Last Values WBC 6.0 10^3/uL (4.0-10.0) 10/12/21 23:42 RBC 4.53 10^6/uL (4.1-5.3) 10/12/21 23:42 Hgb 12.0 g/dL (11.5-15.3) 10/12/21 23:42 Hct 37.6 % (37.0-47.0) 10/12/21 23:42 MCV 83.0 fl (81-99) 10/12/21 23:42 MCH 26.5 pg (28.0-34.0) L 10/12/21 23:42 MCHC 31.9 g/dL (30.0-36.0) 10/12/21 23:42 RDW 13.1 % (12.1-15.1) 10/12/21 23:42 Plt Count 281 10^3/cmm (130-400) 10/12/21 23:42 MPV 10.9 fL (7.4-10.4) H 10/12/21 23:42 Neut % (Auto) 53.1 % 10/12/21 23:42 Lymph % (Auto) 34.1 % 10/12/21 23:42 [place] % (Auto) 5.3 % 10/12/21 23:42 Eos % (Auto) 6.5 % 10/12/21 23:42 Baso % (Auto) 0.7 % 10/12/21 23:42 Neut # (Auto) 3.20 10^3/uL (1.8-7.7) 10/12/21 23:42 Lymph # (Auto) 2.1 10^3/uL (0.8-4.8) 10/12/21 23:42 [place] # (Auto) 0.3 10^3/uL (0.2-0.9) 10/12/21 23:42 Eos # (Auto) 0.4 10^3/uL (0.0-0.8) 10/12/21 23:42 Baso # (Auto) 0.0 10^3/uL (0.0-0.1) 10/12/21 23:42 Nucleated RBC % (auto) 0 % 10/12/21 23:42 Nucleated RBCs # 0.0 /100WBC 10/12/21 23:42 D-Dimer 0.44 ug/mIFEU (0-0.59) 10/12/21 23:42 Sodium 136 mmol/L (136-145) 10/12/21 23:42 Potassium 3.9 mmol/L (3.5-5.1) 10/12/21 23:42 Chloride 98 mmol/L (98-107) 10/12/21 23:42 Carbon Dioxide 26 mmol/L (22-29) 10/12/21 23:42 Anion Gap 15.9 (5-19) 10/12/21 23:42 BUN 18 mg/dL (6-20) 10/12/21 23:42 Creatinine 0.9 mg/dL (0.5-0.9) 10/12/21 23:42 GFR Calculation 65.2 mL/min (90-130) L 10/12/21 23:42 Glucose 208 mg/dL (65-115) H 10/12/21 23:42 POC Glucose 209 mg/dL (70-110) H 10/13/21 01:27 Calculated Osmolality 290 mOsm/kg (285-295) 10/12/21 23:42 Calcium 9.2 mg/dL (8.5-10.5) 10/12/21 23:42 Total Bilirubin 0.3 mg/dL (0.15-1.2) 10/12/21 23:42 AST 18 U/L (0-32) 10/12/21 23:42 ALT 25 U/L (0-33) 10/12/21 23:42 Alkaline Phosphatase 94 IU/L (35-105) 10/12/21 23:42 Troponin T Baseline 17 ng/L (0-10) H 10/12/21 23:42 Troponin T 120 Minute 19.13 ng/L (0-10) H 10/13/21 01:54 Delta Troponin T 2.13 ABS# (0-10) 10/13/21 01:54 Troponin T Hi Sens 6Hr 17.65 ng/L (0-10) H 10/13/21 05:51 Troponin T Hi Sens 6Hr Delta 0.65 ng/L (0-12) 10/13/21 05:51 NT-Pro-B Natriuret Pep 77 pg/mL (0-125) 10/12/21 23:42 Total Protein 6.6 g/dL (6.6-8.7) 10/12/21 23:42 Albumin 3.7 g/dL (3.5-5.2) 10/12/21 23:42 Globulin 2.9 g/dL (1.3-4.6) 10/12/21 23:42 Lipase 16 U/L (13-60) 10/12/21 23:42 Urine Color Yellow (Yellow) 10/13/21 01:19 Urine Appearance Sl hazy (CLEAR) 10/13/21 01:19 Urine pH 5 (5-7) 10/13/21 01:19 Ur Specific [place] 1.020 (1.005-1.030) 10/13/21 01:19 Urine Protein 3+ (Negative) H 10/13/21 01:19 Urine Glucose (UA) Norm (Normal) 10/13/21 01:19 Urine Ketones Negative (Negative) 10/13/21 01:19 Urine Blood Neg (Negative) 10/13/21 01:19 Urine Nitrate Negative (Negative) 10/13/21 01:19 Urine Bilirubin Neg (Negative) 10/13/21 01:19 Urine Urobilinogen Neg mg/dL (Negative) 10/13/21 01:19 Ur Leukocyte Esterase 1+ (Negative) H 10/13/21 01:19 Urine RBC 0-4 /hpf (0-2) H 10/13/21 01:19 Urine WBC 25-40 /hpf (0-5) H 10/13/21 01:19 Ur Squamous Epith Cells 10-15 /hpf (0-5) H 10/13/21 01:19 Amorphous Sediment Not Reportable 10/13/21 01:19 Urine Bacteria 1+ /hpf (NONE) H 10/13/21 01:19 Urine Mucus 1+ /hpf 10/13/21 01:19 Cardiac catheterization on 02/07/2021: My impression: Total occlusion of the mid LAD and PLV branch of the right coronary artery.? High-grade lesion in the second obtuse marginal branch of the circumflex artery.? Moderate diffuse disease in the proximal segments of the diagonal arteries. There was a 50% tapering narrowing in the right coronary artery at the proximal segment.? The MCDONOUGH to the diagonal artery was found to be patent.? Saphenous venous graft to the distal LAD was found to be patent. saphenous venous graft to the obtuse marginal artery also was found to be patent . The obtuse marginal artery distal to the anastomosis was found to have moderate diffuse disease. LVEDP was 32 mmHg.. EKG 1: My Interpretation: The EKG on 10/13/2021 revealed normal sinus rhythm with a rate of 68 bpm. Poor R wave progression. Diffuse nonspecific ST-T changes, more so on the high lateral leads EKG computer-generated impression: Chest X-Ray 10/12/21 23:25 IMPRESSION: Mild indistinctness of the pulmonary vasculature, peribronchial cuffing and increased linear opacities in the mid lower hemithoraces, findings that may represent pulmonary edema. Will A&P Assessment and plan (1) Chest pain: The patient's chest pain is somewhat atypical. Her baseline troponin T was found to be elevated similar to what she had in January 2021. There was no significant delta after 2 hours and 6 hours-similar to what she had last year. The EKG does not show any new changes. Status: Acute (2) Atherosclerotic heart disease of kashia coronary artery with other forms of angina pectoris: Patient is known to have three-vessel coronary disease. The most recent angiogram findings are as mentioned below. Possibility of worsening with underlying coronary disease/development of stenosis in the bypass grafts are considerations. Status: Acute (3) Hypertension: Currently normotensive. Status: Acute Qualifiers: Hypertension type: primary hypertension Qualified Code(s): I10 - Essential (primary) hypertension (4) Diabetes: Aggressive management of the diabetes would be appropriate Status: Acute Qualifiers: Diabetes mellitus type: type 2 Diabetes mellitus shelter insulin use: with exterminator helper use Diabetes mellitus complication status: without complication Qualified Code(s): E11.9 - Type 2 diabetes mellitus without complications; Z79.4 - [facility] (current) use of insulin (5) Hyperlipidemia: May continue on the current medications. Follow-up evaluation scheduled. Status: Acute Qualifiers: Hyperlipidemia type: mixed hyperlipidemia Qualified Code(s): E78.2 - Mixed hyperlipidemia Plan After reviewing the above and also based on the patient reviewing progress, further recommendations will be made. I may consider doing a Myocardial perfusion imaging to further evaluate the coronary status as well as the graft status. Thank you for the opportunity to eval this patient and make these recommendations Coding Level of Care Code Acute Waste Management Engineer for Rosalio Saunders History Detailed Exam Detailed Medical Decision Making Moderate Complexity Diagnoses Chest pain R07.9 Atherosclerotic heart disease of kashia coronary artery with other forms of angina pectoris I25.118 Hypertension I10 Hypertension type: primary hypertension Diabetes E11.9; Z79.4 Diabetes mellitus type: type 2 Diabetes mellitus exterminator helper insulin use: with exterminator helper use Diabetes mellitus complication status: without complication Hyperlipidemia E78.2 Hyperlipidemia type: mixed hyperlipidemia
--- NOTE | 2021-10-13 12:53 | PM.MISC ---
Miscellaneous Note Purpose of Documentation: Mini Progress note Note: Seen today at bedside. Intermittent chest pain. Seen by cardiology. Continue home medications Plan for stress test on Friday. Will continue to monitor patient. Plan as per HnP document.
--- NOTE | 2021-10-13 17:37 | PC.NURSE ---
Upon hourly rounding Mrs. Anderson notified this nurse that when she gets chest pain really bad she feels as though she can not breath very well or swallow. Patient denies chest pain at this time, see vitals as documented. This nurse notified Dr. Segovia and Dr. Lorenzo, no new orders at this time.
[2021-10-13] MEDS: insulin lispro 100 unit/1 mL SUBCUT ×2 (17:42→20:50)
[2021-10-13] MEDS: ropinirole 2 mg Tablet PO (19:52)
--- NOTE | 2021-10-13 20:06 | PC.NURSE ---
Bedside report received from Fern Alford RN
[2021-10-13 22:17] LABS: Glucose Point of Care 186 mg/dL (70-110)
[2021-10-13 22:17] LABS: Glucose Point of Care 100 mg/dL (70-110)
[2021-10-13 22:17] LABS: Glucose Point of Care 116 mg/dL (70-110)
[2021-10-13 22:17] LABS: Glucose Point of Care 107 mg/dL (70-110)
[2021-10-13 22:17] LABS: Glucose Point of Care 167 mg/dL (70-110)
[2021-10-14] VITALS (24 sets, daily range): BP systolic 113–142; BP diastolic 46–90; PULSE 66–85; RESP 11–23; TEMP 36.6–37.2; O2SAT 86–95
--- NOTE | 2021-10-14 00:14 | PC.NURSE ---
Pt reports chills and is shivering. Room temperature increased and pt given warm blankets.
[2021-10-14] MEDS: enoxaparin 40 mg/0.4 mL Syringe SUBCUT (03:53)
[2021-10-14] MEDS: ondansetron 2 mg/ML SDV 2 mL 4 MG IVP ×3 (04:50→18:52)
--- NOTE | 2021-10-14 04:57 | PC.NURSE ---
Pt had sudden onset of nausea while up brushing teeth. Pt also states, sometimes it feels like my throat is swelling. Pt given Zofran and diet violet. She reports that the cold soda makes her throat feel better.
[2021-10-14 05:16] LABS: Basophils % 0.6 %; Eosinophils # 0.4 10^3/uL (0.0-0.8); Hematocrit 39.6 % (37.0-47.0); Hemoglobin 12.4 g/dL (11.5-15.3); Lymphocytes # 1.4 10^3/uL (0.8-4.8); Mean Corpuscular HGB Conc 31.3 g/dL (30.0-36.0); Mean Corpuscular Hemoglobin 26.2 pg (28.0-34.0); Mean Corpuscular Volume 83.5 fl (81-99); Mean Platelet Volume 11.2 fL (7.4-10.4); Monocytes # 0.3 10^3/uL (0.2-0.9); Monocytes % 4.5 %; Neutrophils % 69.6 %; Nucleated Red Blood Cells % 0 %; Platelet Count 320 10^3/cmm (130-400); Red Blood Count 4.74 10^6/uL (4.1-5.3); Red Cell Distribution Width 13.2 % (12.1-15.1)
[2021-10-14 05:40] LABS: Anion Gap 18.8 (5-19); Blood Urea Nitrogen 25 mg/dL (6-20); Carbon Dioxide 26 mmol/L (22-29); Chloride 97 mmol/L (98-107); Glomerular Filtration Rate 42.7 mL/min (90-130); Glucose 184 mg/dL (65-115); Osmolality Calculated 293 mOsm/kg (285-295); Potassium 4.8 mmol/L (3.5-5.1); Sodium 137 mmol/L (136-145)
--- NOTE | 2021-10-14 05:57 | PC.NURSE ---
Pt resting quietly in bed with eyes closed. Respirations are even and unlabored. Pt is pink,warm, and dry. No complaints of nausea at this time.
[2021-10-14] MEDS: carvedilol 25 mg Tablet PO ×2 (08:33→17:17)
[2021-10-14] MEDS: ranolazine (12HR) 500 mg Tablet PO ×2 (08:33→17:17)
[2021-10-14] MEDS: atorvastatin 40 mg Tablet 80 MG PO (08:33)
[2021-10-14] MEDS: ropinirole 2 mg Tablet PO ×3 (08:33→20:34)
[2021-10-14] MEDS: isosorbide mononitrate ER 60 mg Tablet PO (08:33)
[2021-10-14] MEDS: pantoprazole DR 40 mg Tablet PO (08:34)
[2021-10-14] MEDS: amlodipine 5 mg Tablet 10 MG PO (08:34)
[2021-10-14] MEDS: FUROsemide 40 mg Tablet PO (08:34)
[2021-10-14] MEDS: clopidogrel 75 mg Tablet PO (08:34)
[2021-10-14] MEDS: aspirin 325 mg Tablet PO (08:34)
[2021-10-14] MEDS: insulin lispro 100 unit/1 mL SUBCUT ×4 (08:35→20:40)
[2021-10-14] MEDS: insulin glargine 100 units/1 mL 45 UNIT SUBCUT ×2 (08:35→17:18)
--- NOTE | 2021-10-14 09:00 | P.PN_ITS ---
Subjective Subjective: Patient is complaining of having a low-grade fever. Feels somewhat nauseous. She is not feeling well. The vitals are remaining stable. Denies any shortness of breath. Medications: Medication Review Details: Current Medications Acetaminophen (Acetaminophen 325 Mg Tablet) 650 mg PO Q6H PRN PRN Reason: Mild/Mod Pain Or Temp >/= 101 Amlodipine Besylate (Amlodipine 5 Mg Tablet) 10 mg PO DAILY [facility] Last Admin: 10/14/21 08:34 Dose: 10 mg Documented by: Aspirin (Aspirin 325 Mg Tablet) 325 mg PO DAILY [facility] Last Admin: 10/14/21 08:34 Dose: 325 mg Documented by: Atorvastatin Calcium (Atorvastatin 40 Mg Tablet) 80 mg PO DAILY [facility] Last Admin: 10/14/21 08:33 Dose: 80 mg Documented by: Carvedilol (Carvedilol 25 Mg Tablet) 25 mg PO BID [facility] Last Admin: 10/14/21 08:33 Dose: 25 mg Documented by: Clopidogrel Bisulfate (Clopidogrel 75 Mg Tablet) 75 mg PO DAILY [facility] Last Admin: 10/14/21 08:34 Dose: 75 mg Documented by: Dextrose (Dextrose 50% Syringe 50 Ml) 25 ml IVP ONCE PRN; Protocol PRN Reason: hypoglycemia protocol Dextrose (Dextrose 50% Syringe 50 Ml) 50 ml IVP PRN PRN; Protocol PRN Reason: hypoglycemia protocol Enoxaparin Sodium (Enoxaparin 40 Mg/0.4 Ml Syringe) 40 mg SUBCUT Q24H [facility] Last Admin: 10/14/21 03:53 Dose: 40 mg Documented by: Furosemide (Furosemide 40 Mg Tablet) 40 mg PO DAILY [facility] Last Admin: 10/14/21 08:34 Dose: 40 mg Documented by: Glucagon (Glucagon 1 Mg/Ml Inj 1 Ml) 1 mg IM ONCE PRN; Protocol PRN Reason: Adult Acute Hypoglycemia Prot. Dextrose (D5w) 500 mls @ 100 mls/hr IV ONCE PRN; Protocol PRN Reason: Adult Acute Hypoglycemia Prot Insulin Glargine (Insulin Glargine 100 Units/1 Ml) 45 unit SUBCUT BID [facility] Last Admin: 10/14/21 08:35 Dose: 45 unit Documented by: Insulin Human Lispro (Insulin Lispro 100 Unit/1 Ml) 0 unit SUBCUT WM&BEDTIME [facility]; Protocol Last Admin: 10/14/21 08:35 Dose: 4 unit Documented by: Isosorbide Mononitrate (Isosorbide Mononitrate Er 60 Mg Tablet) 60 mg PO DAILY [facility] Last Admin: 10/14/21 08:33 Dose: 60 mg Documented by: Morphine Sulfate (Morphine 4 Mg/Ml Sdv 1 Ml) 4 mg IVP Q4H PRN PRN Reason: SEVERE PAIN Last Admin: 10/13/21 19:54 Dose: 4 mg Documented by: Nitroglycerin (Nitroglycerin 0.4 Mg Sublingual Tablet) 0.4 mg SUBLINGUAL Q5M PRN PRN Reason: CHEST PAIN Last Admin: 10/13/21 04:41 Dose: 1 tab Documented by: Ondansetron HCl (Ondansetron 2 Mg/Ml Sdv 2 Ml) 4 mg IVP Q8H PRN PRN Reason: vomiting, or N/V if npo Last Admin: 10/14/21 04:50 Dose: 4 mg Documented by: Pantoprazole Sodium (Pantoprazole Dr 40 Mg Tablet) 40 mg PO DAILY [facility] Last Admin: 10/14/21 08:34 Dose: 40 mg Documented by: Ranolazine (Ranolazine (12hr) 500 Mg Tablet) 500 mg PO BID [facility] Last Admin: 10/14/21 08:33 Dose: 500 mg Documented by: Ropinirole HCl (Ropinirole 2 Mg Tablet) 2 mg PO TID [facility] Last Admin: 10/14/21 08:33 Dose: 2 mg Documented by: Vitals/I&O/Wt Last Vital Signs Temp 98.2 F 10/14/21 08:00 Pulse 82 10/14/21 08:00 Resp 14 10/14/21 08:00 BP 142/74 10/14/21 08:00 Pulse Ox 95 10/14/21 08:00 10/13/21 10/14/21 10/14/21 22:59 06:59 14:59 Intake Total 480 / 720 480 / 1200 350 / 350 Output Total 200 / 200 300 / 500 Balance 280 / 520 180 / 700 350 / 350 Weight last 48 hrs Weight 327 lb 4.8 oz Weight 326 lb Weight 326 lb Weight 300 lb Physical Exam Narrative: GENERAL: The patient is alert and oriented times three. Not in any acute distress. Morbidly obese HEENT: No significant pallor, icterus or lymphadenopathy.Oral cavity: There are no mucous membrane lesions. NECK: Trachea appears to be central. No masses noted. No JVD or thyromegaly appreciated. RESPIRATORY: Chest is symmetrical. No intercostals muscle retraction or any accessory muscle activation. There is no chest wall tenderness. Breath sounds are heard bilaterally. No rales or rhonchi heard. No evidence of any consolidation. BREASTS: Deferred. HEART: The heart sounds are normal. No S3 or S4. No significant murmurs. No pericardial rub ABDOMEN: No vessel pulsations or distention. No tenderness. No organomegaly appreciated. Bowel sounds are normally heard. : Deferred. RECTAL: Deferred. LYMPHATIC: No lymphadenopathy noted in the neck. EXTREMITIES: No edema or cyanosis. No clubbing. MUSCULOSKELETAL: No acute joint deformities or swelling SKIN: There are no significant rashes or ecchymosis NEUROPSYCHIATRIC: The patient is alert and oriented x3. Appears to be in a good mood. No tremors or rigidity noted. Data : 10/14/21 04:35 10/14/21 04:35 A&P Assessment and plan (1) Chest pain: The patient's chest pain is somewhat atypical. Her baseline troponin T was found to be elevated similar to what she had in January 2021. There was no significant delta after 2 hours and 6 hours-similar to what she had last year. The EKG does not show any new changes. Will continue on the current medication. Plan to do a Lexiscan/sestamibi stress sestamibi stress test tomorrow. Based on the results, further recommendations will be made. Status: Acute (2) Atherosclerotic heart disease of [place] coronary artery with other forms of angina pectoris: Patient is known to have three-vessel coronary disease. The most recent angiogram findings are as mentioned below. Possibility of worsening with underlying coronary disease/development of stenosis in the bypass grafts are considerations. Status: Acute (3) Hypertension: Currently normotensive. May continue on the current medications. Status: Acute Qualifiers: Hypertension type: primary hypertension Qualified Code(s): I10 - Essential (primary) hypertension (4) Diabetes: Aggressive management of the diabetes would be appropriate. 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 Status: Acute Qualifiers: Hyperlipidemia type: mixed hyperlipidemia Qualified Code(s): E78.2 - Mixed hyperlipidemia Plan Schedule for Lexiscan stress decimeter sestamibi stress test tomorrow. Work-up of the low-grade fever?, As per the hospitalist service. 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 coronary artery with other forms of angina pectoris I25.118 Hypertension I10 Hypertension type: primary hypertension Diabetes E11.9; Z79.4 Diabetes mellitus type: type 2 Diabetes mellitus meterman insulin use: with meterman use Diabetes mellitus complication status: without complication Hyperlipidemia E78.2 Hyperlipidemia type: mixed hyperlipidemia
--- NOTE | 2021-10-14 14:40 | PM.PN ---
Subjective Subjective: Seen this morning. Patient states she is a little bit better and no longer having chest pain like she was yesterday. She did report low-grade fever overnight. Check with nursing staff T-max was 99. Denies a cough, denies dysuria denies any other symptoms at this time. Looking forward to having her stress test tomorrow. WBC count is normal. She says she is supposed to be wearing a CPAP at nighttime but does not have the machine as she has not gotten one yet. Vitals/I&O/Wt Last Vital Signs Temp 98 F 10/14/21 12:00 Pulse 66 10/14/21 12:00 Resp 11 L 10/14/21 12:00 BP 125/56 10/14/21 12:00 Pulse Ox 87 L 10/14/21 12:00 10/13/21 10/14/21 10/14/21 22:59 06:59 14:59 Intake Total 480 / 720 480 / 1200 550 / 550 Output Total 200 / 200 300 / 500 Balance 280 / 520 180 / 700 550 / 550 Weight last 48 hrs Weight 148.461 kg Weight 147.871 kg Weight 147.871 kg Weight 136.078 kg Physical Exam Narrative: General: Alert oriented x3, patient seen laying in bed appearing comfortable, obese female HEENT: Normocephalic, atraumatic, EOMI, breathing normally on room air, does desaturate during sleep Cardio: Regular rate rhythm, normal S1-S2, muffled heart sounds due to body habitus Respiratory: Clear to auscultation b/l GI: Abdomen soft, nontender, nondistended, bowel sounds + Behavior: Appropriate and cooperative Extremities: Generalized Le edema 1+ non pitting, no cyanosis Data : 10/14/21 04:35 10/14/21 04:35 Micro: Microbiology 10/13/21 01:19 Urine Culture - Preliminary Urine,Clean Catch A&P Assessment and plan (1) Atherosclerotic heart disease of [place] coronary artery with other forms of angina pectoris: Status: Acute (2) Chest pain: Status: Acute (3) CAD (coronary artery disease): Status: Acute (4) ANGELITO (obstructive sleep apnea): Status: Acute (5) Abnormal urinalysis: Status: Acute (6) Chest pain: Status: Acute Qualifiers: Chest pain type: unspecified Qualified Code(s): R07.9 - Chest pain, unspecified (7) Hypertension: Status: Acute Qualifiers: Hypertension type: primary hypertension Qualified Code(s): I10 - Essential (primary) hypertension (8) Diabetes: Status: Acute Qualifiers: Diabetes mellitus type: type 2 Diabetes mellitus snf insulin use: with snf use Diabetes mellitus complication status: without complication Qualified Code(s): E11.9 - Type 2 diabetes mellitus without complications; Z79.4 - half-way (current) use of insulin (9) GERD (gastroesophageal reflux disease): Status: Acute (10) Hyperlipidemia: Status: Acute Qualifiers: Hyperlipidemia type: mixed hyperlipidemia Qualified Code(s): E78.2 - Mixed hyperlipidemia Plan #Chest pain #Pulm Congestion #Acute kidney injury #History of CABG 2016, CAD 2017 #Hyperlipidemia, hypertension #Obstructive sleep apnea #Diabetes complicated by neuropathy #GERD - Echocardiogram complete. Cardiology on board ? Continue aspirin, statin, beta-quinn, Imdur, ranolazine ? Continue CPAP at nighttime ? Continue home dose Lasix ? Urine culture complete. Mixed normal michelle. No evidence of infection at this time ? Continue to optimize blood pressure: Amlodipine, carvedilol, Imdur if needed may use clonidine ? Stress test in a.m. Further management as per cardiology - ALBERT. Cr. 1.3. Will check cxr, most likely cardio-renal. Will order lasix 40 IV x1. Due to body habitus, auscultation is difficult. Lungs were clear but unsure if pulm edema. Full Code DVT PPX: Attestations Medical Necessity Statement*: Place in observation for additional assessment of management of chest pain episode in a lady with history and risk factors of CAD, possible pulmonary edema. 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 Diagnoses Atherosclerotic heart disease of [place] coronary artery with other forms of angina pectoris I25.118 Chest pain R07.9 CAD (coronary artery disease) I25.10 ANGELITO (obstructive sleep apnea) G47.33 Abnormal urinalysis R82.90 Chest pain R07.9 Chest pain type: unspecified Hypertension I10 Hypertension type: primary hypertension Diabetes E11.9; Z79.4 Diabetes mellitus type: type 2 Diabetes mellitus snf insulin use: with termite technician use Diabetes mellitus complication status: without complication GERD (gastroesophageal reflux disease) K21.9 Hyperlipidemia E78.2 Hyperlipidemia type: mixed hyperlipidemia
--- NOTE | 2021-10-14 19:29 | PC.NURSE ---
Bedside report received from Maya Jade RN.
[2021-10-14 20:11] LABS: Add Urine Microscopic? YES; Bilirubin Urine Neg (Negative); Blood Urine Neg (Negative); Glucose Urine UA Norm (Normal); Ketones Urine Negative (Negative); Leukocyte Esterase Urine 1+ (Negative); Nitrate Urine Negative (Negative); Protein Urine Trace (Negative); Urine Appearance Clear (CLEAR); Urine Color Yellow (Yellow); Urobilinogen Urine Neg (Negative); pH Urine 5 (5-7)
[2021-10-14 20:14] LABS: Add Urine Culture? No; Bacteria Urine 1+ /hpf; Mucus Urine 1+ /hpf; RBC Urine 0-4 /hpf (0-2)
[2021-10-15] VITALS (15 sets, daily range): BP systolic 122–170; BP diastolic 57–97; PULSE 66–93; RESP 14–25; TEMP 36.8–37.5; O2SAT 88–96
--- NOTE | 2021-10-15 00:23 | PC.NURSE ---
Pt complains of nausea, that doesn't want zofran at this time. Pt reports that she has chest pain 3/10, but does not wish to take morphine because it makes her feel so yucky. Pt is to notify nursing of increased chest discomfort or nausea.
[2021-10-15] MEDS: acetaminophen 325 mg Tablet 650 MG PO (00:47)
[2021-10-15] MEDS: ondansetron 2 mg/ML SDV 2 mL 4 MG IVP ×3 (01:20→08:28)
--- NOTE | 2021-10-15 01:26 | PC.NURSE ---
Message sent to Dr Laurent requesting Zofran frequency be changed from q8h.
[2021-10-15] MEDS: enoxaparin 40 mg/0.4 mL Syringe SUBCUT (04:41)
[2021-10-15 05:26] LABS: Basophils % 0.5 %; Eosinophils # 0.3 10^3/uL (0.0-0.8); Eosinophils % 4.5 %; Hemoglobin 10.9 g/dL (11.5-15.3); Lymphocytes # 1.1 10^3/uL (0.8-4.8); Lymphocytes % 20.6 %; Mean Corpuscular HGB Conc 32.1 g/dL (30.0-36.0); Mean Corpuscular Hemoglobin 26.4 pg (28.0-34.0); Mean Corpuscular Volume 82.3 fl (81-99); Mean Platelet Volume 11.1 fL (7.4-10.4); Monocytes # 0.3 10^3/uL (0.2-0.9); Monocytes % 5.8 %; Neutrophils # 3.77 10^3/uL (1.8-7.7); Neutrophils % 68.1 %; Nucleated Red Blood Cells % 0 %; Platelet Count 208 10^3/cmm (130-400); Red Blood Count 4.13 10^6/uL (4.1-5.3); Red Cell Distribution Width 13.1 % (12.1-15.1); White Blood Count 5.5 10^3/uL (4.0-10.0)
[2021-10-15 05:50] LABS: Blood Urea Nitrogen 22 mg/dL (6-20); Calcium 8.6 mg/dL (8.5-10.5); Carbon Dioxide 23 mmol/L (22-29); Chloride 100 mmol/L (98-107); Glomerular Filtration Rate 57.8 mL/min (90-130); Glucose 187 mg/dL (65-115); Osmolality Calculated 290 mOsm/kg (285-295); Sodium 136 mmol/L (136-145)
[2021-10-15 06:00] LABS: Anion Gap 17.6 (5-19); Potassium 4.6 mmol/L (3.5-5.1)
--- NOTE | 2021-10-15 06:42 | ECG_ITS ---
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 Interpretive Statements NAME OF STUDY: LEXISCAN SESTAMIBI STRESS TEST INDICATION: Chest Pain, PROCEDURE: At the baseline, the EKG revealed normal sinus rhythm with a poor R wave progression nonspecific T wave changes. The baseline blood pressure was 153/91 mm Hg with a heart rate of 69 beats/min. Lexiscan was infused over a period of 20 seconds. A total of 0.4 milligrams of Lexiscan was infused. The stress phase was continued for a total of 5 minutes. Heart rate at the end of the stress phase was 96 with a blood pressure 205/95. The EKG at the peak infusion revealed no significant changes. Sestamibi was injected 20 seconds after the Lexiscan infusion. Blood pressure at the end of the recovery phase was 170/97 with a heart rate of 78 per minute. CONCLUSION: 1. No significant EKG changes with the LexiScan infusion 2. No LexiScan induced chest pain or cardiac arrhythmia 3. Normal blood pressure and heart rate response 4. Sestamibi/sestamibi perfusion scan pending; see separate report. Electronically Signed On 10-19-2021 17:26:40 CDT by Parker Lorenzo M.D. [email or web address]
--- NOTE | 2021-10-15 06:44 | NMCV_ITS ---
NM ralph perf SPECT r/s* [id number] Ju Anderson Age: 55 Gender: F : 1965 Exam Date: 10/15/2021 07:46 Ordering Phys: Parker Lorenzo MD ([email or web address]) Technologist: LEODAN Crespo Exam Location: [facility] Indications: Chest pain STRESS TEST Please see separate stress test report in [facility] for full findings IMAGE PROTOCOL Rest/Stress 1 Lexiscan Day Radiopharmaceutical Dose (mCi) Administration Site Administered by Rest: Tc-99m 10.8 IV LEODAN Crespo Sestamibi Stress:Tc-99m 33.0 IV LEODAN Crespo Sestamibi Rest: 15-Oct-2021 60 Discovery 630 Stress: 15-Oct-2021 30 Discovery 630 0.4mg Lexiscan. Images obtained in supine and prone position. SPECT RESULTS Technical Quality: Good Raw Data Analysis: Breast attenuation, Soft tissue attenuation Image Corrections: No attenuation or motion correction applied Summed Stress Score: 2 Summed Rest Score: 5 Summed Difference Score: 1 PERFUSION FINDINGS A moderate area of slightly decreased visibility was noted in the basal and mid inferolateral regions. Some reversibility was noted in the basal inferolateral region at rest. FUNCTIONAL RESULTS (calculated via Gated SPECT) Stress Image LV EF (%): 68 Stress EDV (mL):111 TID: 0.95 Stress ESV (mL):35 FUNCTIONAL FINDINGS: Segmental wall motion analysis revealing no gross wall motion normalities. IMPRESSIONS 1. Myocardial perfusion imaging revealing moderate area of slightly decreased tracer uptake in the inferolateral region with some reversibility, suggestive of myocardial scarring with an area of minimal john-infarction ischemia. 2. Normal LV ejection fraction 60%. 3. LV wall motion analysis revealing no gross wall motion abnormalities. 4. Normal LV volume No similar previous studies are available for comparison Dr Parker Lorenzo MD [facility] (Electronically Signed) Final Date: 15 October 2021 11:17 S
[2021-10-15] MEDS: insulin lispro 100 unit/1 mL SUBCUT ×2 (07:30→11:47)
--- NOTE | 2021-10-15 07:57 | PC.NURSE ---
Patient in care of Nuclear Medicine staff at approximately 0740.
[2021-10-15] MEDS: regadenoson 0.4 Mg/5 ml Syringe IVP (08:28)
[2021-10-15] MEDS: aminophylline 25 mg/mL SDV 10 mL IVP (08:31)
[2021-10-15] MEDS: ranolazine (12HR) 500 mg Tablet PO (09:53)
[2021-10-15] MEDS: ropinirole 2 mg Tablet PO (09:53)
[2021-10-15] MEDS: carvedilol 25 mg Tablet PO (09:53)
[2021-10-15] MEDS: pantoprazole DR 40 mg Tablet PO (09:53)
[2021-10-15] MEDS: amlodipine 5 mg Tablet 10 MG PO (09:54)
[2021-10-15] MEDS: insulin glargine 100 units/1 mL 45 UNIT SUBCUT (09:54)
[2021-10-15] MEDS: FUROsemide 40 mg Tablet PO (09:54)
[2021-10-15] MEDS: clopidogrel 75 mg Tablet PO (09:54)
[2021-10-15] MEDS: isosorbide mononitrate ER 60 mg Tablet PO (09:54)
[2021-10-15] MEDS: aspirin 325 mg Tablet PO (09:54)
[2021-10-15] MEDS: atorvastatin 40 mg Tablet 80 MG PO (09:54)
--- NOTE | 2021-10-15 10:11 | PC.NURSE ---
Patient back in ICU approximately 1000. Patient reports vomiting in Nuclear Medicine. Reports no nausea at this time and is resting in bed with visitor at bedside.
[2021-10-15 11:15] LABS: Glucose Point of Care 221 mg/dL (70-110)
[2021-10-15 11:15] LABS: Glucose Point of Care 196 mg/dL (70-110)
[2021-10-15 11:15] LABS: Glucose Point of Care 242 mg/dL (70-110)
[2021-10-15 11:15] LABS: Glucose Point of Care 191 mg/dL (70-110)
[2021-10-15 11:15] LABS: Glucose Point of Care 238 mg/dL (70-110)
[2021-10-15 11:43] LABS: Glucose Point of Care 213 mg/dL (70-110)
--- NOTE | 2021-10-15 13:56 | P.PN_ITS ---
Subjective Subjective: Patient had a Myocardial perfusion imaging today. She was found to have a small area of reversible defect in the basal inferolateral region. She has no fever, chills or cough. No significant chest pain. Medications: Medication Review Details: Current Medications Acetaminophen (Acetaminophen 325 Mg Tablet) 650 mg PO Q6H PRN PRN Reason: Mild/Mod Pain Or Temp >/= 101 Last Admin: 10/15/21 00:47 Dose: 650 mg Documented by: Aminophylline (Aminophylline 25 Mg/Ml Sdv 10 Ml) 25 mg IVP Q2M PRN PRN Reason: see dose instructions Stop: 10/16/21 07:29 Last Admin: 10/15/21 08:31 Dose: 25 mg Documented by: Amlodipine Besylate (Amlodipine 5 Mg Tablet) 10 mg PO DAILY COUNTS INCLUDE 234 BEDS AT THE [facility] Last Admin: 10/15/21 09:54 Dose: 10 mg Documented by: Aspirin (Aspirin 325 Mg Tablet) 325 mg PO DAILY COUNTS INCLUDE 234 BEDS AT THE [facility] Last Admin: 10/15/21 09:54 Dose: 325 mg Documented by: Atorvastatin Calcium (Atorvastatin 40 Mg Tablet) 80 mg PO DAILY COUNTS INCLUDE 234 BEDS AT THE [facility] Last Admin: 10/15/21 09:54 Dose: 80 mg Documented by: Carvedilol (Carvedilol 25 Mg Tablet) 25 mg PO BID COUNTS INCLUDE 234 BEDS AT THE [facility] Last Admin: 10/15/21 09:53 Dose: 25 mg Documented by: Cephalexin HCl (Cephalexin 500 Mg Capsule) 500 mg PO TID COUNTS INCLUDE 234 BEDS AT THE [facility]; Protocol Clopidogrel Bisulfate (Clopidogrel 75 Mg Tablet) 75 mg PO DAILY COUNTS INCLUDE 234 BEDS AT THE [facility] Last Admin: 10/15/21 09:54 Dose: 75 mg Documented by: Dextrose (Dextrose 50% Syringe 50 Ml) 25 ml IVP ONCE PRN; Protocol PRN Reason: hypoglycemia protocol Dextrose (Dextrose 50% Syringe 50 Ml) 50 ml IVP PRN PRN; Protocol PRN Reason: hypoglycemia protocol Enoxaparin Sodium (Enoxaparin 40 Mg/0.4 Ml Syringe) 40 mg SUBCUT Q24H COUNTS INCLUDE 234 BEDS AT THE [facility] Last Admin: 10/15/21 04:41 Dose: 40 mg Documented by: Furosemide (Furosemide 40 Mg Tablet) 40 mg PO DAILY COUNTS INCLUDE 234 BEDS AT THE [facility] Last Admin: 10/15/21 09:54 Dose: 40 mg Documented by: Glucagon (Glucagon 1 Mg/Ml Inj 1 Ml) 1 mg IM ONCE PRN; Protocol PRN Reason: Adult Acute Hypoglycemia Prot. Dextrose (D5w) 500 mls @ 100 mls/hr IV ONCE PRN; Protocol PRN Reason: Adult Acute Hypoglycemia Prot Insulin Glargine (Insulin Glargine 100 Units/1 Ml) 45 unit SUBCUT BID COUNTS INCLUDE 234 BEDS AT THE [facility] Last Admin: 10/15/21 09:54 Dose: 45 unit Documented by: Insulin Human Lispro (Insulin Lispro 100 Unit/1 Ml) 0 unit SUBCUT WM&BEDTIME COUNTS INCLUDE 234 BEDS AT THE [facility]; Protocol Last Admin: 10/15/21 11:47 Dose: 4 unit Documented by: Isosorbide Mononitrate (Isosorbide Mononitrate Er 60 Mg Tablet) 60 mg PO DAILY COUNTS INCLUDE 234 BEDS AT THE [facility] Last Admin: 10/15/21 09:54 Dose: 60 mg Documented by: Morphine Sulfate (Morphine 4 Mg/Ml Sdv 1 Ml) 4 mg IVP Q4H PRN PRN Reason: SEVERE PAIN Last Admin: 10/13/21 19:54 Dose: 4 mg Documented by: Nitroglycerin (Nitroglycerin 0.4 Mg Sublingual Tablet) 0.4 mg SUBLINGUAL Q5M PRN PRN Reason: CHEST PAIN Last Admin: 10/13/21 04:41 Dose: 1 tab Documented by: Nitroglycerin (Nitroglycerin 0.4 Mg Sublingual Tablet) 0.4 mg SUBLINGUAL Q5M PRN PRN Reason: CHEST PAIN Stop: 10/16/21 07:29 Ondansetron HCl (Ondansetron 2 Mg/Ml Sdv 2 Ml) 4 mg IVP Q6H PRN PRN Reason: vomiting, or N/V if npo Last Admin: 10/15/21 07:22 Dose: 4 mg Documented by: Ondansetron HCl (Ondansetron 2 Mg/Ml Sdv 2 Ml) 4 mg IVP Q2M PRN PRN Reason: NAUSEA Last Admin: 10/15/21 08:28 Dose: 4 mg Documented by: Pantoprazole Sodium (Pantoprazole Dr 40 Mg Tablet) 40 mg PO DAILY COUNTS INCLUDE 234 BEDS AT THE [facility] Last Admin: 10/15/21 09:53 Dose: 40 mg Documented by: Ranolazine (Ranolazine (12hr) 500 Mg Tablet) 500 mg PO BID COUNTS INCLUDE 234 BEDS AT THE [facility] Last Admin: 10/15/21 09:53 Dose: 500 mg Documented by: Ropinirole HCl (Ropinirole 2 Mg Tablet) 2 mg PO TID COUNTS INCLUDE 234 BEDS AT THE [facility] Last Admin: 10/15/21 09:53 Dose: 2 mg Documented by: Vitals/I&O/Wt Last Vital Signs Temp 98.7 F 10/15/21 07:30 Pulse 72 10/15/21 12:00 Resp 18 10/15/21 12:00 BP 131/78 10/15/21 12:00 Pulse Ox 88 L 10/15/21 12:00 10/14/21 10/15/21 10/15/21 22:59 06:59 14:59 Intake Total 590 / 1140 240 / 1380 960 / 960 Output Total 1000 / 1000 200 / 1200 1100 / 1100 Balance -410 / 140 40 / 180 -140 / -140 Weight last 48 hrs Weight 321 lb 12.8 oz Weight 327 lb 4.8 oz Physical Exam Narrative: GENERAL: The patient is alert and oriented times three. Not in any acute distress. Morbidly obese HEENT: No significant pallor, icterus or lymphadenopathy.Oral cavity: There are no mucous membrane lesions. NECK: Trachea appears to be central. No masses noted. No JVD or thyromegaly appreciated. RESPIRATORY: Chest is symmetrical. No intercostals muscle retraction or any accessory muscle activation. There is no chest wall tenderness. Breath sounds are heard bilaterally. No rales or rhonchi heard. No evidence of any consolidation. BREASTS: Deferred. HEART: The heart sounds are normal. No S3 or S4. No significant murmurs. No pericardial rub ABDOMEN: No vessel pulsations or distention. No tenderness. No organomegaly appreciated. Bowel sounds are normally heard. : Deferred. RECTAL: Deferred. LYMPHATIC: No lymphadenopathy noted in the neck. EXTREMITIES: No edema or cyanosis. No clubbing. MUSCULOSKELETAL: No acute joint deformities or swelling SKIN: There are no significant rashes or ecchymosis NEUROPSYCHIATRIC: The patient is alert and oriented x3. Appears to be in a good mood. No tremors or rigidity noted. Data : 10/15/21 05:04 10/15/21 05:04 Other Labs: Laboratory Last Values WBC 5.5 10^3/uL (4.0-10.0) 10/15/21 05:04 RBC 4.13 10^6/uL (4.1-5.3) 10/15/21 05:04 Hgb 10.9 g/dL (11.5-15.3) L 10/15/21 05:04 Hct 34.0 % (37.0-47.0) L 10/15/21 05:04 MCV 82.3 fl (81-99) 10/15/21 05:04 MCH 26.4 pg (28.0-34.0) L 10/15/21 05:04 MCHC 32.1 g/dL (30.0-36.0) 10/15/21 05:04 RDW 13.1 % (12.1-15.1) 10/15/21 05:04 Plt Count 208 10^3/cmm (130-400) D 10/15/21 05:04 MPV 11.1 fL (7.4-10.4) H 10/15/21 05:04 Neut % (Auto) 68.1 % 10/15/21 05:04 Lymph % (Auto) 20.6 % 10/15/21 05:04 [place] % (Auto) 5.8 % 10/15/21 05:04 Eos % (Auto) 4.5 % 10/15/21 05:04 Baso % (Auto) 0.5 % 10/15/21 05:04 Neut # (Auto) 3.77 10^3/uL (1.8-7.7) 10/15/21 05:04 Lymph # (Auto) 1.1 10^3/uL (0.8-4.8) 10/15/21 05:04 [place] # (Auto) 0.3 10^3/uL (0.2-0.9) 10/15/21 05:04 Eos # (Auto) 0.3 10^3/uL (0.0-0.8) 10/15/21 05:04 Baso # (Auto) 0.0 10^3/uL (0.0-0.1) 10/15/21 05:04 Nucleated RBC % (auto) 0 % 10/15/21 05:04 Nucleated RBCs # 0.0 /100WBC 10/15/21 05:04 D-Dimer 0.44 ug/mIFEU (0-0.59) 10/12/21 23:42 Sodium 136 mmol/L (136-145) 10/15/21 05:04 Potassium 4.6 mmol/L (3.5-5.1) 10/15/21 05:04 Chloride 100 mmol/L (98-107) 10/15/21 05:04 Carbon Dioxide 23 mmol/L (22-29) 10/15/21 05:04 Anion Gap 17.6 (5-19) 10/15/21 05:04 BUN 22 mg/dL (6-20) H 10/15/21 05:04 Creatinine 1.0 mg/dL (0.5-0.9) H 10/15/21 05:04 GFR Calculation 57.8 mL/min (90-130) L 10/15/21 05:04 Glucose 187 mg/dL (65-115) H 10/15/21 05:04 POC Glucose 213 mg/dL (70-110) H 10/15/21 11:38 Calculated Osmolality 290 mOsm/kg (285-295) 10/15/21 05:04 Calcium 8.6 mg/dL (8.5-10.5) 10/15/21 05:04 Total Bilirubin 0.3 mg/dL (0.15-1.2) 10/12/21 23:42 AST 18 U/L (0-32) 10/12/21 23:42 ALT 25 U/L (0-33) 10/12/21 23:42 Alkaline Phosphatase 94 IU/L (35-105) 10/12/21 23:42 Troponin T Baseline 17 ng/L (0-10) H 10/12/21 23:42 Troponin T 120 Minute 19.13 ng/L (0-10) H 10/13/21 01:54 Delta Troponin T 2.13 ABS# (0-10) 10/13/21 01:54 Troponin T Hi Sens 6Hr 17.65 ng/L (0-10) H 10/13/21 05:51 Troponin T Hi Sens 6Hr Delta 0.65 ng/L (0-12) 10/13/21 05:51 NT-Pro-B Natriuret Pep 77 pg/mL (0-125) 10/12/21 23:42 Total Protein 6.6 g/dL (6.6-8.7) 10/12/21 23:42 Albumin 3.7 g/dL (3.5-5.2) 10/12/21 23:42 Globulin 2.9 g/dL (1.3-4.6) 10/12/21 23:42 Lipase 16 U/L (13-60) 10/12/21 23:42 Urine Color Yellow (Yellow) 10/14/21 19:52 Urine Appearance Clear (CLEAR) 10/14/21 19:52 Urine pH 5 (5-7) 10/14/21 19:52 Ur Specific [place] 1.020 (1.005-1.030) 10/14/21 19:52 Urine Protein Trace (Negative) 10/14/21 19:52 Urine Glucose (UA) Norm (Normal) 10/14/21 19:52 Urine Ketones Negative (Negative) 10/14/21 19:52 Urine Blood Neg (Negative) 10/14/21 19:52 Urine Nitrate Negative (Negative) 10/14/21 19:52 Urine Bilirubin Neg (Negative) 10/14/21 19:52 Urine Urobilinogen Neg mg/dL (Negative) 10/14/21 19:52 Ur Leukocyte Esterase 1+ (Negative) H 10/14/21 19:52 Urine RBC 0-4 /hpf (0-2) H 10/14/21 19:52 Urine WBC 5-10 /hpf (0-5) H 10/14/21 19:52 Ur Squamous Epith Cells 5-10 /hpf (0-5) H 10/14/21 19:52 Amorphous Sediment Not Reportable 10/14/21 19:52 Urine Bacteria 1+ /hpf (NONE) H 10/14/21 19:52 Urine Mucus 1+ /hpf 10/14/21 19:52 Micro: Microbiology 10/13/21 01:19 Urine Culture - Final Urine,Clean Catch A&P Assessment and plan (1) Chest pain: The patient's chest pain is somewhat atypical. Her baseline troponin T was found to be elevated similar to what she had in January 2021. There was no significant delta after 2 hours and 6 hours-similar to what she had last year. The EKG does not show any new changes. Will continue on the current medication. Plan to do a Lexiscan/sestamibi stress sestamibi stress test tomorrow. Based on the results, further recommendations will be made. The perfusion scan revealed a small area of reversible defect in the basal inferolateral region. Status: Acute (2) Atherosclerotic heart disease of [place] coronary artery with other forms of angina pectoris: Patient is known to have three-vessel coronary disease. The most recent angiogram findings are as mentioned below. Possibility of worsening with underlying coronary disease/development of stenosis in the bypass grafts are con siderations. Area of ischemia appears to be very small. Status: Acute (3) Hypertension: Currently normotensive. May continue on the current medications. Status: Acute Qualifiers: Hypertension type: primary hypertension Qualified Code(s): I10 - Essential (primary) hypertension (4) Diabetes: Aggressive management of the diabetes would be appropriate. 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 Status: Acute Qualifiers: Hyperlipidemia type: mixed hyperlipidemia Qualified Code(s): E78.2 - Mixed hyperlipidemia Plan I discussed with the patient in detail the implication of the test findings. Since the ischemic burden appears to be very small, it was thought to be appr opriate to optimize her medical treatment. If she continues to have chest pains, we may consider doing a cardiac catheterization, to further evaluate her coronary status also left?status. This was discussed in detail the patient which she understood well. Patient is wanting to hold off on invasiv e/interventional procedures at this point. If she continues to remain stable, may be discharged home today. Please make an appointment to be seen of the [facility] in 1 week. Appointment with me in the office in 1 month. May continue on the current medications. Discussed with Dr. Mane Attestations Medical Necessity Statement*: Possible discharge home today. 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
--- NOTE | 2021-10-15 15:23 | PC.NURSE ---
Patient discharged to home. Left with friend via personal vehicle. Extensive education provided on patient condition, follow up appointments, and new medications. Patient had no further questions. Discharge package with patient.
--- NOTE | 2021-10-30 19:22 | PM.DCS ---
Discharge Providers Date of Admission: 10/13/21 02:52 Date of Discharge: October 15, 2021 Attending Provider at Admission: Mauricio Laurent Attending Provider at Discharge: Noe Mane MD Primary Care Provider: Kasandra Lopez NP Diagnoses at Discharge Discharge Diagnosis (1) Chest pain: Status: Resolved (2) Atherosclerotic heart disease of [place] coronary artery with other forms of angina pectoris: Status: Acute (3) Hypertension: Status: Acute Qualifiers: Hypertension type: primary hypertension Qualified Code(s): I10 - Essential (primary) hypertension (4) Diabetes: Status: Acute Qualifiers: Diabetes mellitus complication status: without complication Diabetes mellitus shelter insulin use: with milling general superintendent 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 Diabetes mellitus type: type 2 Qualified Code(s): E11.9 - Type 2 diabetes mellitus without complications; 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.4 - 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 operator (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 Patient was admitted 6 [facility] for chest pain ?1.? Myocardial perfusion imaging revealing moderate area of slightly decreased ?tracer uptake in the inferolateral region with some reversibility, suggestive ?of myocardial scarring with an area of minimal john-infarction ischemia. ?2.? Normal LV ejection fraction 60%. ?3.? LV wall motion analysis revealing no gross wall motion abnormalities. ?4.? Normal LV volume Cardiac echocardiogram Technically difficult study because of the poor ultrasonic ?window. ?Echo contrast was used to visualize the left ventricle ?Possibly normal LV size with ejection fraction of 57%. ?No regional wall motion abnormalities.? ?There is no pericardial effusion. Cardiology was consulted, decision was made to pursue medical management, follow-up with farm equipment operator outpatient, if she were to have recurrent chest pain go to the emergency room Physical Exam Const: COMMON NORMALS: no acute distress and patient oriented x3 Resp: COMMON NORMALS: normal respiratory effort, No retractions, No use of accessory muscles and clear to auscultation bilaterally AUSCULTATION: clear to auscultation bilaterally Cardio: COMMON NORMALS: regular rate, regular rhythm, S1 normal heart sound present and S2 normal heart sound present RATE: regular rate RHYTHM: regular rhythm HEART SOUNDS: S1 normal heart sound present and S2 normal heart sound present GI: COMMON NORMALS: Normal to inspection, nondistended, normoactive bowel sounds present and non-tender Extremity: COMMON NORMALS: no pedal edema Neuro: COMMON NORMALS: patient oriented x3 Psych: COMMON NORMALS: mental status grossly normal Discharge Data Studies Completed and Pending Completed Studies During Hospitalization Category Date Time Status Sestamibi Stress Test Request Routine Exams 10/15/21 06:42 Completed XR chest 1V portable [id number] Stat Exams 10/12/21 23:25 Completed NM ralph perf SPECT r/s* [id number] Routine Nuc Med 10/15/21 06:44 Completed CV. echo limited [id number] Routine Ultrasound 10/13/21 04:13 Completed Radiology Impressions Chest X-Ray 10/12/21 23:25 IMPRESSION: Mild indistinctness of the pulmonary vasculature, peribronchial cuffing and increased linear opacities in the mid lower hemithoraces, findings that may represent pulmonary edema. Laboratory Results WBC 5.5 10^3/uL (4.0-10.0) 10/15/21 05:04 RBC 4.13 10^6/uL (4.1-5.3) 10/15/21 05:04 Hgb 10.9 g/dL (11.5-15.3) L 10/15/21 05:04 Hct 34.0 % (37.0-47.0) L 10/15/21 05:04 MCV 82.3 fl (81-99) 10/15/21 05:04 MCH 26.4 pg (28.0-34.0) L 10/15/21 05:04 MCHC 32.1 g/dL (30.0-36.0) 10/15/21 05:04 RDW 13.1 % (12.1-15.1) 10/15/21 05:04 Plt Count 208 10^3/cmm (130-400) D 10/15/21 05:04 MPV 11.1 fL (7.4-10.4) H 10/15/21 05:04 Neut % (Auto) 68.1 % 10/15/21 05:04 Lymph % (Auto) 20.6 % 10/15/21 05:04 [place] % (Auto) 5.8 % 10/15/21 05:04 Eos % (Auto) 4.5 % 10/15/21 05:04 Baso % (Auto) 0.5 % 10/15/21 05:04 Neut # (Auto) 3.77 10^3/uL (1.8-7.7) 10/15/21 05:04 Lymph # (Auto) 1.1 10^3/uL (0.8-4.8) 10/15/21 05:04 [place] # (Auto) 0.3 10^3/uL (0.2-0.9) 10/15/21 05:04 Eos # (Auto) 0.3 10^3/uL (0.0-0.8) 10/15/21 05:04 Baso # (Auto) 0.0 10^3/uL (0.0-0.1) 10/15/21 05:04 Nucleated RBC % (auto) 0 % 10/15/21 05:04 Nucleated RBCs # 0.0 /100WBC 10/15/21 05:04 D-Dimer 0.44 ug/mIFEU (0-0.59) 10/12/21 23:42 Sodium 136 mmol/L (136-145) 10/15/21 05:04 Potassium 4.6 mmol/L (3.5-5.1) 10/15/21 05:04 Chloride 100 mmol/L (98-107) 10/15/21 05:04 Carbon Dioxide 23 mmol/L (22-29) 10/15/21 05:04 Anion Gap 17.6 (5-19) 10/15/21 05:04 BUN 22 mg/dL (6-20) H 10/15/21 05:04 Creatinine 1.0 mg/dL (0.5-0.9) H 10/15/21 05:04 GFR Calculation 57.8 mL/min (90-130) L 10/15/21 05:04 Glucose 187 mg/dL (65-115) H 10/15/21 05:04 POC Glucose 213 mg/dL (70-110) H 10/15/21 11:38 Calculated Osmolality 290 mOsm/kg (285-295) 10/15/21 05:04 Calcium 8.6 mg/dL (8.5-10.5) 10/15/21 05:04 Total Bilirubin 0.3 mg/dL (0.15-1.2) 10/12/21 23:42 AST 18 U/L (0-32) 10/12/21 23:42 ALT 25 U/L (0-33) 10/12/21 23:42 Alkaline Phosphatase 94 IU/L (35-105) 10/12/21 23:42 Troponin T Baseline 17 ng/L (0-10) H 10/12/21 23:42 Troponin T 120 Minute 19.13 ng/L (0-10) H 10/13/21 01:54 Delta Troponin T 2.13 ABS# (0-10) 10/13/21 01:54 Troponin T Hi Sens 6Hr 17.65 ng/L (0-10) H 10/13/21 05:51 Troponin T Hi Sens 6Hr Delta 0.65 ng/L (0-12) 10/13/21 05:51 NT-Pro-B Natriuret Pep 77 pg/mL (0-125) 10/12/21 23:42 Total Protein 6.6 g/dL (6.6-8.7) 10/12/21 23:42 Albumin 3.7 g/dL (3.5-5.2) 10/12/21 23:42 Globulin 2.9 g/dL (1.3-4.6) 10/12/21 23:42 Lipase 16 U/L (13-60) 10/12/21 23:42 Urine Color Yellow (Yellow) 10/14/21 19:52 Urine Appearance Clear (CLEAR) 10/14/21 19:52 Urine pH 5 (5-7) 10/14/21 19:52 Ur Specific [place] 1.020 (1.005-1.030) 10/14/21 19:52 Urine Protein Trace (Negative) 10/14/21 19:52 Urine Glucose (UA) Norm (Normal) 10/14/21 19:52 Urine Ketones Negative (Negative) 10/14/21 19:52 Urine Blood Neg (Negative) 10/14/21 19:52 Urine Nitrate Negative (Negative) 10/14/21 19:52 Urine Bilirubin Neg (Negative) 10/14/21 19:52 Urine Urobilinogen Neg mg/dL (Negative) 10/14/21 19:52 Ur Leukocyte Esterase 1+ (Negative) H 10/14/21 19:52 Urine RBC 0-4 /hpf (0-2) H 10/14/21 19:52 Urine WBC 5-10 /hpf (0-5) H 10/14/21 19:52 Ur Squamous Epith Cells 5-10 /hpf (0-5) H 10/14/21 19:52 Amorphous Sediment Not Reportable 10/14/21 19:52 Urine Bacteria 1+ /hpf (NONE) H 10/14/21 19:52 Urine Mucus 1+ /hpf 10/14/21 19:52 Vitals Last Vital Signs Temp 98.9 F 10/15/21 14:05 Pulse 93 10/15/21 14:05 Resp 14 10/15/21 14:05 BP 153/76 10/15/21 14:05 Pulse Ox 96 10/15/21 14:05 O2 Del Method 10/15/21 12:00 O2 Flow Rate 1 10/15/21 12:00 FiO2 21 10/14/21 18:00 Discharge Plan Discharge Patient Disposition: Home Condition: Stable Prescriptions: New isosorbide mononitrate 60 mg Tablet Extended Release 24 Hr 60 mg PO DAILY Qty: 30 0RF ranolazine 500 mg Tablet Extended Release 12 Hr 500 mg PO BID Qty: 30 0RF Continued aspirin 325 mg tablet 325 mg PO DAILY carvedilol 25 mg tablet 25 mg PO BID Rx Instructions: must administer with a meal/food furosemide 40 mg tablet 40 mg PO DAILY multivitamin Tablet 1 tab PO DAILY nitroglycerin 0.4 mg tablet, sublingual 0.4 mg sublingual Q5M PRN (Reason: Chest Pain) Rx Instructions: do not exceed 3 doses per episode pantoprazole 40 mg tablet,delayed release (DR/EC) 40 mg PO DAILY rosuvastatin 40 mg tablet 40 mg PO DAILY gabapentin 600 mg tablet See Rx Instructions .ROUTE .COMPLEX Qty: 90 3RF Dose Instruction: TAKE ONE TABLET BY MOUTH THREE TIMES DAILY Rx Instructions: TAKE ONE TABLET BY MOUTH THREE TIMES DAILY metformin 500 mg tablet 500 mg PO BID ropinirole 1 mg tablet 2 mg PO TID clopidogrel 75 mg tablet 75 mg PO DAILY ergocalciferol (vitamin D2) 1,250 mcg (50,000 unit) capsule 1,250 mcg PO Q7D Rx Instructions: TAKE ON FRIDAY duloxetine 60 mg capsule,delayed release(DR/EC) 60 mg PO DAILY Tresiba FlexTouch U-100 100 unit/mL (3 mL) insulin pen 65 unit SUBCUT BID escitalopram oxalate 20 mg tablet 20 mg PO DAILY Qty: 0 0RF amlodipine 5 mg tablet 10 mg PO DAILY Qty: 0 0RF hydroxyzine HCl 25 mg tablet 25 mg PO BEDTIME PRN (Reason: anxiety) Discharge Orders: Discharge Order (Routine); Ordered 10/15/21 Ordered By: Noe Mane Referrals: Kasandra Lopez NP [Primary Care Provider] - Parker Lorenzo MD [Physician] - 10/22/21 10:15 am Discharge Diet: Cardiac Discharge Activity: Resume usual activity Patient Instructions: Cephalexin (By mouth), Isosorbide Mononitrate (By mouth) (Imdur, Imdur ER, Ismo), Ranolazine (By mouth) (Ranexa), Heart Healthy Diet, Opioid Safety Activity Restrictions/Additional Instructions: Appointment the [facility] to be seen by nurse practitioner in 1 week Appointment to see me in the office in 1 month. In the event if she is developing any increasing chest pains or any new cardiac symptoms, advised to contact our office Discharge Attestations Time Spent in Discharge Care*: less than 30 min Quality Metrics Clinical Quality Measures [ No reported AMI, CVA or VTE this stay] Coding Level of Care Code Acute Chg FW DC note Diagnoses Chest pain R07.9 Atherosclerotic heart disease of [place] coronary artery with other forms of angina pectoris I25.118 Hypertension I10 Hypertension type: primary hypertension Diabetes E11.9; Z79.4 Diabetes mellitus complication status: without complication Diabetes mellitus shelter insulin use: with shelter use Diabetes mellitus type: type 2 Hyperlipidemia E78.2 Hyperlipidemia type: mixed hyperlipidemia
== END 2021-10-15 15:15 | disposition home or self-care (01) ==
LOC: ER 10-13 02:07 → ICU 10-13 03:29
PROVIDERS: Emergency Medicine; Internal Medicine; Admitting Provider Internal Medicine; Emergency Provider Registered Nurse; PCP Nurse Practitioner Family; Visit Provider Family Medicine
DX: I25.118 Atherosclerotic heart disease of native coronary artery with other forms of angina pectoris (principal); Z95.1 Presence of aortocoronary bypass graft; I10 Essential (primary) hypertension; G47.33 Obstructive sleep apnea (adult) (pediatric); Z79.82 Long term (current) use of aspirin; Z79.84 Long term (current) use of oral hypoglycemic drugs; Z79.4 Long term (current) use of insulin; F41.9 Anxiety disorder, unspecified; Z86.16 Personal history of COVID-19; K21.9 Gastro-esophageal reflux disease without esophagitis; E11.40 Type 2 diabetes mellitus with diabetic neuropathy, unspecified; Z95.5 Presence of coronary angioplasty implant and graft; R82.90 Unspecified abnormal findings in urine; E11.9 Type 2 diabetes mellitus without complications; E78.2 Mixed hyperlipidemia; Z82.49 Family history of ischemic heart disease and other diseases of the circulatory system
CPT/HCPCS: 36415; 36416; 71045; 78452; 80048; 80053; 81001; 82962; 83690; 83880; 84484; 85025; 85378; 87086; 93005; 93017; 93308; 94664; 94760; 96365; 96372; 96375; 96376; 99285; A9500; G0378; J0280; J1650; J1815; J2270; J2405; J2785; Q9956

== ENCOUNTER → 2022-04-09 17:36 | Outpatient (BNVA) | payer OTHER, SELFPAY | PROVIDERS: PCP Family Medicine; Visit Provider Family Medicine | DX: E11.9 Type 2 diabetes mellitus without complications (principal); E78.2 Mixed hyperlipidemia; I10 Essential (primary) hypertension; Z79.4 Long term (current) use of insulin; K21.9 Gastro-esophageal reflux disease without esophagitis | CPT/HCPCS: 80053; 80061; 83036; 83721; 84443; 85025 ==

== ENCOUNTER 2022-06-15 20:11 | Emergency (ER) | payer OTHER, SELFPAY ==
[2022-06-15 20:19] VITALS: BP 138/73; PULSE 88; RESP 20; TEMP 37.3; O2SAT 95; BMI 50.1
--- NOTE | 2022-06-15 20:23 | XRR_ITS ---
PROCEDURE INFORMATION: Exam: XR Chest Exam date and time: 06/15/2022 8:54 PM Age: 56 years old Clinical indication: Sternal or substernal pain; Prior surgery; Surgery type: Stents, open heart, gb; Additional info: Cp SOB TECHNIQUE: Imaging protocol: Radiologic exam of the chest. Views: 1 view. COMPARISON: CR XR chest 1V portable [id number] 10/12/2021 11:49 PM FINDINGS: Lungs: Unremarkable. No consolidation. Pleural spaces: Unremarkable. No pleural effusion. No pneumothorax. Heart/Mediastinum: Unremarkable. No cardiomegaly. Bones/joints: Sternotomy wires. XR/XR chest 1V portable [id number] IMPRESSION: No acute findings.
--- NOTE | 2022-06-15 20:35 | ECG_ITS ---
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 Measurements Intervals [place] Rate: 88 P: 53 DE: 185 QRS: 8 QRSD: 86 T: 44 QT: 364 QTc: 441 Interpretive Statements SINUS RHYTHM NONSPECIFIC ST & T-WAVE ABNORMALITY Compared to ECG 10/13/2021 02:06:04 No significant changes Electronically Signed On 06-16-2022 7:18:17 CDT by Feliberto Kelly M.D. [id number]
[2022-06-15 20:46] VITALS: BP 160/87; PULSE 91; RESP 20; TEMP 37.3
--- NOTE | 2022-06-15 20:49 | ED_ITS ---
HPI - Chest Pain General: Chief Complaint: Chest Pain Stated Complaint: CP Time Seen by Provider: 06/15/22 20:14 History of Present Illness: 56-year-old female with a history of diabetes and coronary disease. She presents with chest discomfort that started this morning and persisted through the day. She took 2 nitroglycerin today with relief transiently of her pain. She also received nitroglycerin in the ambulance on the way here with some transient relief. She also notes she has been coughing, a dry hacking cough with shortness of breath. No significant sputum production. She has noticed some mild swelling to her legs that is increased. She has felt feverish all day and chills despite her house being 80 degrees. MD complaint: chest pain Pertinent past history: coronary artery disease Onset (ago): hour(s) Timing of current episode: constant Prior episodes: Yes Onset: during rest Pain location: substernal Pain radiation: none Quality: aching Relieving factors: nitroglycerin Exacerbating factors: nothing Associated symptoms: Reports dyspnea, fever(s), leg edema and nausea; Deny abdominal pain, diaphoresis, syncope or vomiting Treatment prior to arrival: nitroglycerin and oxygen Review of Systems Const: Reports: fever(s); Denies: diaphoresis ENMT: Denies: throat pain Card: Reports: chest pain; Denies: syncope Resp: Reports: dyspnea GI: Reports: nausea; Denies: abdominal pain or vomiting Skin/Breast: Denies: rash [facility] ED PFSH: Medical History Anxiety CAD (coronary artery disease) COVID-10 jan 2020 Diabetes GERD (gastroesophageal reflux disease) Hx of chest pain Hyperlipidemia Hypertension Insomnia Neuropathy ANGELITO (obstructive sleep apnea) Surgical History History of heart artery stent (~2017) History of open heart surgery (~2016) Hx of CABG Family History Other CAD (coronary artery disease) Social History Smoking and tobacco status: never smoked Second hand smoke exposure: No Lives independently: Yes Marital status: service: No Current occupational status: employed Current gender identity: Female Special chris needs: No Agree to transfusion: Yes Physical Exam Const: COMMON NORMALS: no acute distress GENERAL APPEARANCE: cooperative and ill appearing (Mildly); not frail appearing NUTRITIONAL APPEARANCE: obese HENMT: COMMON NORMALS: normocephalic, atraumatic and Normal external nose present HEAD & SCALP: normocephalic and atraumatic FACE & SINUS: normal facial exam and face symmetric NOSE: Normal external nose present Eye: COMMON NORMALS: Equal, round and reactive pupils present and EOMs intact bilaterally PUPIL: Yes Equal, round and reactive pupils present Neck/C-Spine: GENERAL: Yes trachea midline Chest: CHEST: Yes Symmetrical chest wall rise Resp: COMMON NORMALS: normal respiratory effort, No retractions, No use of accessory muscles and clear to auscultation bilaterally AUSCULTATION: clear to auscultation bilaterally Cardio: COMMON NORMALS: regular rate and regular rhythm RATE: regular rate RHYTHM: regular rhythm GI: COMMON NORMALS: Normal to inspection, nondistended, normoactive bowel sounds present Extremity: COMMON NORMALS: no pedal edema Neuro: JAMIE COMA SCALE: document GCS findings Jamie coma scale eye opening: Spontaneous [place] coma scale verbal response: Orientated Jamie coma scale motor response: Obey commands Jamie coma scale total score: 15 SENSORY EXAM: Yes extremities (intact) Psych: COMMON NORMALS: speech normal SPEECH: Yes normal speech Skin: COMMON NORMALS: no rashes or lesions noted GENERAL SKIN EXAM: no rashes or lesions noted Course Vital Signs: Vital signs: Vital Signs Temperature 99.2 F 06/15/22 20:46 Pulse Rate 78 06/15/22 23:41 Respiratory Rate 12 06/15/22 23:41 Blood Pressure 136/70 06/15/22 23:41 Pulse Oximetry 95 06/15/22 23:41 Oxygen Delivery Me thod 06/15/22 23:41 Oxygen Flow Rate 3 06/15/22 23:41 MDM - Chest Pain Medical Decision Making 56-year-old female with a history of diabetes and coronary disease. She presents with cough, fevers, some sputum production, and chest discomfort. EKG did not show any acute ST changes. Initial troponin was 28 with a delta of 0.16. BNP was 300. COVID-19 antigen was negative. White blood cell count is 8. Hemoglobin 11.2. Lactate is 1.1. BMP and liver enzymes are not remarkable. The patient had improvement in her chest discomfort and shortness of breath after neb treatment. Without elevation in her cardiac enzymes, and with respiratory symptoms, as well as a history of fever, likely respiratory illness causing chest discomfort. Chest x-ray was negative. She will be treated for an acute bronchitis. She knows to return for any worsening symptoms. Lab Data 06/15/22 21:06/15/22: Radiology Impressions Chest X-Ray 06/15/22 IMPRESSION: No acute findings. Laboratory Results WBC 8.0 10^3/uL (4.0-10.0) 06/15/22: RBC 4.21 10^6/uL (4.1-5.3) 06/15/22: Hgb 11.2 g/dL (11.5-15.3) L 06/15/22: Hct 34.5 % (37.0-47.0) L 06/15/22: MCV 81.9 fl (81-99) 06/15/22: MCH 26.6 pg (28.0-34.0) L 06/15/22: MCHC 32.5 g/dL (30.0-36.0) 06/15/22: RDW 13.2 % (12.1-15.1) 06/15/22: Plt Count 234 10^3/cmm (130-400) 06/15/22: MPV 10.5 fL (7.4-10.4) H 06/15/22: Neut % (Auto) 84.5 % 06/15/22: Lymph % (Auto) 8.0 % 06/15/22: [place] % (Auto) 5.3 % 06/15/22: Eos % (Auto) 0.9 % 06/15/22: Baso % (Auto) 0.4 % 06/15/22 Neut # (Auto) 6.77 10^3/uL (1.8-7.7) 06/15/22: Lymph # (Auto) 0.6 10^3/uL (0.8-4.8) L 06/15/22: [place] # (Auto) 0.4 10^3/uL (0.2-0.9) 06/15/22 21:28 Eos # (Auto) 0.1 10^3/uL (0.0-0.8) 06/15/22 21: Baso # (Auto) 0.0 10^3/uL (0.0-0.1) 06/15/22 21: Nucleated RBC % (auto) 0 % 06/15/22 21: Nucleated RBCs # 0.0 /100WBC 06/15/22 21: Sodium 135 mmol/L (136-145) L 06/15/22 21: Potassium 3.7 mmol/L (3.5-5.1) 06/15/22 21: Chloride 96 mmol/L (98-107) L 06/15/22 21: Carbon Dioxide 26 mmol/L (22-29) 06/15/22: Anion Gap 16.7 (5-19) 06/15/22 21: BUN 15 mg/dL (6-20) 06/15/22 21: Creatinine 0.9 mg/dL (0.5-0.9) 06/15/22 21: GFR Calculation 65.0 mL/min (90-130) L 06/15/22 21: Glucose 279 mg/dL (65-115) H 06/15/22 21: Calculated Osmolality 291 mOsm/kg (285-295) 06/15/22 21: Lactate 1.1 mmol/L (0.5-2.2) 06/15/22 21: Calcium 8.2 mg/dL (8.5-10.5) L 06/15/22 21: Total Bilirubin 0.7 mg/dL (0.15-1.2) 06/15/22 21: AST 11 U/L (0-32) 06/15/22 21: ALT 14 U/L (0-33) 06/15/22 21: Alkaline Phosphatase 84 U/L (35-105) 06/15/22 21:28 Troponin T Baseline 28 ng/L (0-10) H 06/15/22 21: Troponin T 120 Minute 27.84 ng/L (0-10) H 06/15/22 22:40 Delta Troponin T -0.16 ABS# (0-10) L 06/15/22 22:40 C-Reactive Protein 44.0 mg/L (0.0-4.9) H 06/15/22 21:28 NT-Pro-B Natriuret Pep 307 pg/mL (0-125) H 06/15/22 21:28 Total Protein 7.0 g/dL (6.6-8.7) 06/15/22 21:28 Albumin 3.7 g/dL (3.5-5.2) 06/15/22 21:28 Globulin 3.3 g/dL (1.3-4.6) 06/15/22 21:28 SARS-CoV-2 Ag (Rapid) negative (Negative) 06/15/22 23:44 Discharge Plan Discharge Patient Disposition: Home Clinical Impression: Chest pain, Acute bronchitis Condition: Stable Prescriptions: New azithromycin 250 mg tablet See Rx Instructions .ROUTE .COMPLEX Qty: 6 0RF Rx Instructions: For 250 mg dose pack: take 500 mg today (day 1), then 250 mg for 4 days (days 2-5) albuterol sulfate 90 mcg/actuation HFA aerosol inhaler 2 inh INHALATION Q4H PRN (Reason: shortness of breath or wheezing) Qty: 6.7 1RF No Action aspirin 325 mg tablet 325 mg PO DAILY multivitamin Tablet 1 tab PO DAILY nitroglycerin 0.4 mg tablet, sublingual 0.4 mg sublingual Q5M PRN (Reason: Chest Pain) Rx Instructions: do not exceed 3 doses per episode duloxetine 60 mg capsule,delayed release(DR/EC) 60 mg PO DAILY Qty: 60 0RF isosorbide mononitrate 60 mg tablet extended release 24 hr 60 mg PO .daily prn Qty: 30 0RF Rx Instructions: Takes prn chest pain insulin lispro [Humalog U-100 Insulin] 100 unit/mL solution 10 unit SUBCUT .COMPLEX Qty: 10 4RF Rx Instructions: 10 units subcutaneously for every 100 pts of glucose tid, so 10% of glucose sliding scale; metformin 500 mg tablet 500 mg PO BID Qty: 60 3RF escitalopram oxalate 20 mg tablet 20 mg PO DAILY Qty: 30 3RF clopidogrel 75 mg tablet 75 mg PO DAILY Qty: 30 3RF pantoprazole 40 mg tablet,delayed release (DR/EC) 40 mg PO DAILY Qty: 30 3RF trazodone 50 mg tablet 50 mg PO .qhs Qty: 30 3RF ergocalciferol (vitamin D2) 1,250 mcg (50,000 unit) capsule 1,250 mcg PO Q7D Qty: 4 4RF Rx Instructions: TAKE ON FRIDAY (DME) FreeStyle Clay 2 [place] Misc See Rx Instructions .Route Qty: 1 2RF Rx Instructions: As directed (DME) FreeStyle Clay 2 Sensor Kit See Rx Instructions .ROUTE .MEDSUPPLY Qty: 3 2RF Rx Instructions: change every 14 days ropinirole 1 mg tablet 2 mg PO TID Qty: 180 0RF amlodipine 5 mg tablet 10 mg PO DAILY Qty: 60 0RF carvedilol 25 mg tablet 25 mg PO BID Qty: 30 0RF Rx Instructions: must administer with a meal/food furosemide 40 mg tablet 40 mg PO DAILY Qty: 30 0RF rosuvastatin 40 mg tablet 40 mg PO DAILY Qty: 90 0RF gabapentin 600 mg tablet See Rx Instructions .ROUTE .COMPLEX Qty: 90 3RF Dose Instruction: TAKE ONE TABLET BY MOUTH THREE TIMES DAILY Rx Instructions: TAKE ONE TABLET BY MOUTH THREE TIMES DAILY Jardiance 25 mg tablet 25 mg PO DAILY Qty: 30 2RF Tresiba FlexTouch U-100 100 unit/mL (3 mL) insulin pen See Rx Instructions .ROUTE .COMPLEX Qty: 15 3RF Dose Instruction: INJECT 65 UNITS SUBCUTANEOUSLY TWICE DAILY Rx Instructions: INJECT 65 UNITS SUBCUTANEOUSLY TWICE DAILY hydroxyzine HCl 25 mg tablet 25 mg PO BEDTIME PRN (Reason: anxiety) Discharge Orders: Discharge ED (Routine); Ordered 06/16/22 Ordered By: Carlo Szymanski Referrals: Roxanne Villavicencio MD [Primary Care Provider] - 1-3 days Patient Instructions: Chest Pain (ED), Acute Bronchitis (ED) Coding Level of Care Code ED Grader Meat for Rosalio Saunders
[2022-06-15] MEDS: nitroglycerin 1 gm/inch oint Pkt 1.5 INCH TOPICAL (21:15)
[2022-06-15 21:44] LABS: Basophils % 0.4 %; Eosinophils # 0.1 10^3/uL (0.0-0.8); Eosinophils % 0.9 %; Hematocrit 34.5 % (37.0-47.0); Hemoglobin 11.2 g/dL (11.5-15.3); Lymphocytes # 0.6 10^3/uL (0.8-4.8); Mean Corpuscular HGB Conc 32.5 g/dL (30.0-36.0); Mean Corpuscular Hemoglobin 26.6 pg (28.0-34.0); Mean Corpuscular Volume 81.9 fl (81-99); Mean Platelet Volume 10.5 fL (7.4-10.4); Monocytes # 0.4 10^3/uL (0.2-0.9); Monocytes % 5.3 %; Neutrophils # 6.77 10^3/uL (1.8-7.7); Neutrophils % 84.5 %; Nucleated Red Blood Cells % 0 %; Platelet Count 234 10^3/cmm (130-400); Red Blood Count 4.21 10^6/uL (4.1-5.3); Red Cell Distribution Width 13.2 % (12.1-15.1)
[2022-06-15 21:46] VITALS: BP 147/75; PULSE 81; RESP 21; O2SAT 97
[2022-06-15] MEDS: fentaNYL 50 mcg/mL INJ 2mL 75 MCG IVP ×2 (21:46→23:39)
[2022-06-15 22:05] LABS: Lactate (Lactic Acid level) 1.1 mmol/L (0.5-2.2)
[2022-06-15 22:05] LABS: Troponin(5th) Baseline 28 ng/L (0-10)
[2022-06-15 22:14] LABS: Alanine Aminotransferase 14 U/L (0-33); Albumin Level 3.7 g/dL (3.5-5.2); Alkaline Phosphatase 84 U/L (35-105); Anion Gap 16.7 (5-19); Aspartate Amino Transferase 11 U/L (0-32); Blood Urea Nitrogen 15 mg/dL (6-20); Calcium 8.2 mg/dL (8.5-10.5); Carbon Dioxide 26 mmol/L (22-29); Chloride 96 mmol/L (98-107); Globulin 3.3 g/dL (1.3-4.6); Glucose 279 mg/dL (65-115); NT Pro B Type Natriuretic Pept 307 pg/mL (0-125); Osmolality Calculated 291 mOsm/kg (285-295); Potassium 3.7 mmol/L (3.5-5.1); Sodium 135 mmol/L (136-145); Total Bilirubin 0.7 mg/dL (0.15-1.2)
--- NOTE | 2022-06-15 22:23 | ECG_ITS ---
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 Measurements Intervals [place] Rate: 82 P: 56 VT: 191 QRS: 28 QRSD: 98 T: 33 QT: 395 QTc: 464 Interpretive Statements SINUS RHYTHM NONSPECIFIC T-WAVE ABNORMALITY Compared to ECG 06/15/2022 20:35:59 No significant changes Electronically Signed On 06-16-2022 7:19:14 CDT by Feliberto Kelly M.D. [email or web address]/[id number]
[2022-06-15 23:17] LABS: Troponin 5 2HR 27.84 ng/L (0-10)
[2022-06-15] MEDS: ipratropium-albuterol 3 mL Neb INHALATION (23:29)
[2022-06-15 23:31] VITALS: PULSE 81; RESP 16; O2SAT 96
[2022-06-15 23:32] LABS: Troponin 5 2HR Delta -0.16 ABS# (0-10)
[2022-06-15 23:41] VITALS: BP 136/70; PULSE 78; RESP 12; O2SAT 95
[2022-06-16] MEDS: cefTRIAXone 1,000 MG in sodium chloride 0.9% (plus) 50 ML 100 MG IV (00:16)
[2022-06-16 00:19] LABS: SARS Covid-2 Antigen negative (Negative)
== END 2022-06-16 01:19 | disposition home or self-care (01) ==
PROVIDERS: Emergency Provider Emergency Medicine; PCP Family Medicine
DX: J20.9 Acute bronchitis, unspecified (principal); E11.9 Type 2 diabetes mellitus without complications; I10 Essential (primary) hypertension; E78.5 Hyperlipidemia, unspecified; I25.10 Atherosclerotic heart disease of native coronary artery without angina pectoris; Z79.4 Long term (current) use of insulin; Z79.82 Long term (current) use of aspirin; Z79.84 Long term (current) use of oral hypoglycemic drugs; Z86.16 Personal history of COVID-19; Z95.5 Presence of coronary angioplasty implant and graft; Z95.1 Presence of aortocoronary bypass graft
CPT/HCPCS: 71045; 80053; 83605; 83880; 84484; 85025; 86140; 87040; 87426; 93005; 94640; 96374; 96375; 99285; J0696; J3010

== ENCOUNTER → 2022-08-27 13:50 | Outpatient (BNVA) | payer OTHER, SELFPAY | PROVIDERS: PCP Family Medicine; Visit Provider Nurse Practitioner Family | DX: R39.9 Unspecified symptoms and signs involving the genitourinary system (principal) | CPT/HCPCS: 81003 ==

== ENCOUNTER → 2022-09-10 09:46 | Outpatient (BNVA) | payer OTHER, SELFPAY | PROVIDERS: PCP Family Medicine; Visit Provider Nurse Practitioner Family | DX: M25.50 Pain in unspecified joint (principal); E11.9 Type 2 diabetes mellitus without complications; Z79.4 Long term (current) use of insulin; Z87.440 Personal history of urinary (tract) infections; Z12.39 Encounter for other screening for malignant neoplasm of breast; I10 Essential (primary) hypertension; E78.2 Mixed hyperlipidemia; K21.9 Gastro-esophageal reflux disease without esophagitis; G47.00 Insomnia, unspecified; F41.9 Anxiety disorder, unspecified | CPT/HCPCS: 80053; 80061; 81003; 82043; 82306; 82607; 83036; 83735; 84443; 84550; 85025; 85651; 86038; 86140; 86200; 86431; 87086 ==

== ENCOUNTER 2023-05-18 18:21 | Emergency (ER) | payer OTHER, SELFPAY ==
--- NOTE | 2023-05-18 18:26 | ECG_ITS ---
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 Measurements Intervals [place] Rate: 89 P: 54 TX: 170 QRS: -21 QRSD: 85 T: 36 QT: 377 QTc: 459 Interpretive Statements SINUS RHYTHM POSSIBLE ANTERIOR MYOCARDIAL INFARCTION , PROBABLY OLD [30 ms Q WAVE IN V3/V4, OR R < 0.2 mV IN V4] Compared to ECG 06/15/2022 22:42:58 Myocardial infarct finding now present T-wave abnormality no longer present Electronically Signed On 05-18-2023 21:00:20 KEYBOARD OPERATOR by Parker Lorenzo M.D. [id number] f
[2023-05-18 18:27] VITALS: BP 151/98; PULSE 90; RESP 16; TEMP 36.9; O2SAT 95
--- NOTE | 2023-05-18 18:32 | XRR_ITS ---
PROCEDURE INFORMATION: Exam: XR Chest Exam date and time: 05/18/2023 7:46 PM Age: 57 years old Clinical indication: Patient HX: Chest pain; SOB fever TECHNIQUE: Imaging protocol: Radiologic exam of the chest. Views: 1 view. COMPARISON: CR XR chest 1V portable [id number] 06/15/2022 8:54 PM FINDINGS: Lungs: Interval development of patchy left lingular atelectasis versus pneumonia. Pleural spaces: No pleural effusion. No pneumothorax. Heart/Mediastinum: The cardiac silhouette and mediastinal contours are unremarkable. Bones/joints: Poststernotomy changes in the chest. XR/XR chest 1V portable [id number] IMPRESSION: 1. Interval development of patchy left lingular atelectasis versus pneumonia. Recommend followup chest imaging to insure resolution of these findings. 2. Incidental/nonacute findings are listed in the report.
[2023-05-18 19:19] LABS: Basophils % 0.3 %; Eosinophils % 1.4 %; Hematocrit 41.4 % (36-47); Lymphocytes # 0.7 10^3/uL (0.8-4.8); Lymphocytes % 23.4 %; Mean Corpuscular HGB Conc 34.3 g/dL (30-55); Mean Corpuscular Hemoglobin 27.5 pg (27-33); Mean Corpuscular Volume 80.2 fl (85-98); Mean Platelet Volume 10.7 fL (7.4-10.4); Monocytes # 0.2 10^3/uL (0.2-0.9); Neutrophils # 1.91 10^3/uL (1.8-7.7); Neutrophils % 66.9 %; Nucleated Red Blood Cells % 0 %; Platelet Count 185 10^3/cmm (157-399); Red Blood Count 5.16 10^6/uL (3.85-5.65); Red Cell Distribution Width 12.4 % (12.1-15.1); White Blood Count 2.86 10^3/uL (3.29-11.43)
[2023-05-18 19:39] LABS: Troponin(5th) Baseline 21 ng/L (0-10)
--- NOTE | 2023-05-18 20:12 | ED_ITS ---
HPI - Chest Pain 2 General: Chief Complaint: Chest Pain Stated Complaint: cp, fever , sob Time Seen by Provider: 05/18/23 19:43 History of Present Illness: Presents to the ER for complaints of fever shortness of breath whole body aches and intermittent sharp stabbing chest pain. Patient rates the chest pain at 2 when it happens it is sharp and stabbing from the front straight to the back and then causes a muscle spasm in the back. Patient says there is nothing to bring this on or makes it go away just happens on its own. Patient says she has been having a fever and shortness of breath off and on for about the last week. She was around her whole family which tested positive for influenza B however patient did not get tested herself. Patient is currently pain-free. Review of Systems 2 General: Reports: 10 or more systems reviewed and unremarkable except in HPI and below PFSH ED 2 PFSH: Medical History CAD (coronary artery disease) ANGELITO (obstructive sleep apnea) COVID-10 jan 2020 Anxiety Hypertension Diabetes Hx of chest pain GERD (gastroesophageal reflux disease) Neuropathy Insomnia Hyperlipidemia Surgical History Hx of CABG History of open heart surgery (~2016) History of heart artery stent (~2017) Family History Other CAD (coronary artery disease) Social History Smoking and tobacco/nicotine status: never used tobacco/nicotine Second hand smoke exposure: No Lives independently: Yes Marital status: service: No Current occupational status: employed Current gender identity: Female Special chris needs: No Agree to transfusion: Yes Physical Exam 2 Const: COMMON NORMALS: no acute distress, average body habitus, patient oriented x3, no limitations, healthy appearing, alert and well nourished HENMT: COMMON NORMALS: normocephalic, atraumatic, hearing grossly normal bilaterally, external ears normal, Normal external nose present, moist oral mucous membranes and oropharynx normal HEAD & SCALP: normocephalic and atraumatic NOSE: Normal external nose present EXTERNAL EAR: Yes external ears normal Eye: COMMON NORMALS: Equal, round and reactive pupils present, EOMs intact bilaterally, conjunctivae normal and no scleral icterus CONJUNCTIVA: Yes conjunctivae normal PUPIL: Yes Equal, round and reactive pupils present Neck/C-Spine: COMMON NORMALS: full ROM, no lymphadenopathy, supple, no meningeal signs, no JVD and Thyroid normal THYROID: Thyroid normal Chest: COMMONS NORMALS: normal inspection of the chest; negative for normal palpation of entire chest wall (Palpation mid sternum reproduces the pain.) Resp: COMMON NORMALS: normal respiratory effort, No retractions, No use of accessory muscles and clear to auscultation bilaterally AUSCULTATION: clear to auscultation bilaterally Cardio: COMMON NORMALS: no JVD, regular rate, regular rhythm, S1 normal heart sound present, S2 normal heart sound present, No gallops present (Cardio), No clicks present (Cardio), No murmurs present (Cardio) and No rub (Cardio) R ATE: regular rate RHYTHM: regular rhythm HEART SOUNDS: S1 normal heart sound present and S2 normal heart sound present Neuro: COMMON NORMALS: patient oriented x3 SENSORIUM/ORIENTATION: Yes alert MENINGEAL SIGNS: Yes no meningeal signs Course 2 Vital Signs: Vital signs: Vital Signs Temperature 98.4 F 05/18/23 18:27 Pulse Rate 76 05/18/23 21:35 Respiratory Rate 19 H 05/18/23 21:35 Blood Pressure 151/98 05/18/23 18:27 Pulse Oximetry 96 05/18/23 21:35 Oxygen Delivery Me thod Nasal Cannula 05/18/23 21:35 Oxygen Flow Rate 2 05/18/23 21:35 MDM - Chest Pain Medical Decision Making Had lab work performed revealed a white count of 2.86, influenza B positive, chest x-ray patchy left lingular infiltrate versus atelectasis patient passed her home oxygen study and would not get below 93% sent. This most likely represents influenza pneumonia but patient be placed on antibiotics just in case this is a bacterial component to it. Patient be discharged home. Differential Diagnosis Unlikely acute massive pulmonary embolism, acute respiratory failure, acute myocardial infarction, cardiac arrest or sudden cardiac Medical Records I reviewed the patient's medical records. Lab Data I reviewed the patient's lab results. 05/18/23 19:10 05/18/23 19:10 Radiology Impressions Chest X-Ray 05/18/23 18:32 IMPRESSION: 1. Interval development of patchy left lingular atelectasis versus pneumonia. Recommend followup chest imaging to insure resolution of these findings. 2. Incidental/nonacute findings are listed in the report. Laboratory Results WBC 2.86 10^3/uL (3.29-11.43) L 05/18/23 19:10 RBC 5.16 10^6/uL (3.85-5.65) 05/18/23 19:10 Hgb 14.20 g/dL (11.27-16.99) 05/18/23 19:10 Hct 41.4 % (36-47) 05/18/23 19:10 MCV 80.2 fl (85-98) L 05/18/23 19:10 MCH 27.5 pg (27-33) 05/18/23 19:10 MCHC 34.3 g/dL (30-55) 05/18/23 19:10 RDW 12.4 % (12.1-15.1) 05/18/23 19:10 Plt Count 185 10^3/cmm (157-399) 05/18/23 19:10 MPV 10.7 fL (7.4-10.4) H 05/18/23 19:10 Neut % (Auto) 66.9 % 05/18/23 19:10 Lymph % (Auto) 23.4 % 05/18/23 19:10 [place] % (Auto) 8.0 % 05/18/23 19:10 Eos % (Auto) 1.4 % 05/18/23 19:10 Baso % (Auto) 0.3 % 05/18/23 19:10 Neut # (Auto) 1.91 10^3/uL (1.8-7.7) 05/18/23 19:10 Lymph # (Auto) 0.7 10^3/uL (0.8-4.8) L 05/18/23 19:10 [place] # (Auto) 0.2 10^3/uL (0.2-0.9) 05/18/23 19:10 Eos # (Auto) 0.0 10^3/uL (0.0-0.8) 05/18/23 19:10 Baso # (Auto) 0.0 10^3/uL (0.0-0.1) 05/18/23 19:10 Nucleated RBC % (auto) 0 % 05/18/23 19:10 Nucleated RBCs # 0.0 /100WBC 05/18/23 19:10 Sodium 130 mmol/L (136-145) L 05/18/23 19:10 Potassium 3.1 mmol/L (3.5-5.1) L 05/18/23 19:10 Chloride 94 mmol/L (98-107) L 05/18/23 19:10 Carbon Dioxide 23 mmol/L (22-29) 05/18/23 19:10 Anion Gap 16.1 (5-19) 05/18/23 19:10 BUN 17 mg/dL (6-20) 05/18/23 19:10 Creatinine 0.9 mg/dL (0.5-0.9) 05/18/23 19:10 GFR Calculation 64.8 mL/min (90-130) L 05/18/23 19:10 Glucose 277 mg/dL (65-115) H 05/18/23 19:10 Calculated Osmolality 281 mOsm/kg (285-295) L 05/18/23 19:10 Calcium 8.6 mg/dL (8.5-10.5) 05/18/23 19:10 Total Bilirubin 0.3 mg/dL (0.15-1.2) 05/18/23 19:10 AST 29 U/L (0-32) 05/18/23 19:10 ALT 28 U/L (0-33) 05/18/23 19:10 Alkaline Phosphatase 69 U/L (35-105) 05/18/23 19:10 Troponin T Baseline 21 ng/L (0-10) H 05/18/23 19:10 Troponin T 120 Minute 22.71 ng/L (0-10) H 05/18/23 21:15 Delta Troponin T 1.71 ABS# (0-10) 05/18/23 21:15 NT-Pro-B Natriuret Pep 42 pg/mL (0-125) 05/18/23 19:10 Total Protein 6.6 g/dL (6.6-8.7) 05/18/23 19:10 Albumin 3.4 g/dL (3.5-5.2) L 05/18/23 19:10 Globulin 3.2 g/dL (1.3-4.6) 05/18/23 19:10 Influenza Type A Ag negative (Negative) 05/18/23 19:37 Influenza Type B Ag positive (Negative) H 05/18/23 19:37 SARS-CoV-2 Ag (Rapid) negative (Negative) 05/18/23 19:37 All radiology interpretation(s) finalized by discharge EKG Data EKG 1: I personally reviewed and interpreted this EKG as follows: EKG interpretation date: 05/18/23 EKG interpretation time: 18:26 Prior EKG tracings: not available for review Interpretation: Ventricular rate 89 bpm, VT interval 170, QRS duration 85, QTc of 423, sinus rhythm Discharge Plan Discharge Patient Disposition: Home Clinical Impression: Influenza B Left lower lobe pneumonia Qualifiers: Pneumonia type: due to unspecified organism Qualified Code(s): J18.9 - Pneumonia, unspecified organism Condition: Stable Prescriptions: New amoxicillin-pot clavulanate 875-125 mg tablet 1 tab PO BID Qty: 20 0RF ondansetron HCl 4 mg tablet 4 mg PO Q8H PRN (Reason: nausea and vomiting) Qty: 14 0RF No Action aspirin 325 mg tablet 325 mg PO DAILY multivitamin Tablet 1 tab PO DAILY nitroglycerin 0.4 mg tablet, sublingual 0.4 mg sublingual Q5M PRN (Reason: Chest Pain) Rx Instructions: do not exceed 3 doses per episode isosorbide mononitrate 60 mg tablet extended release 24 hr 60 mg PO .daily prn Qty: 30 0RF Rx Instructions: Takes prn chest pain metformin 500 mg tablet 500 mg PO BID Qty: 60 3RF mupirocin 2 % ointment 1 applic topical BID Qty: 22 0RF ondansetron 4 mg tablet,disintegrating 4 mg PO Q8H PRN (Reason: nausea and vomiting) Qty: 30 2RF diclofenac sodium 1 % gel 2 g topical QID Qty: 100 0RF Rx Instructions: apply to single elbow and hand Mounjaro 2.5 mg/0.5 mL pen injector 2.5 mg SUBCUT .weekly Qty: 2 0RF Rx Instructions: 2.5 weekly for 4 weeks, then increase to 5 mg a week. ondansetron 4 mg tablet,disintegrating 4 mg PO Q8H Qty: 30 0RF rizatriptan [Maxalt-HISTORY DEPARTMENT CHAIR] 10 mg tablet,disintegrating 10 mg PO Q2H PRN (Reason: migraine headache) Qty: 14 3RF Rx Instructions: do not exceed 2 doses per 24 hrs (DME) FreeStyle Clay 2 [place] Misc See Rx Instructions .Route Qty: 1 2RF Rx Instructions: As directed (DME) FreeStyle Clay 2 Sensor Kit See Rx Instructions .ROUTE .MEDSUPPLY Qty: 3 2RF Rx Instructions: change every 14 days tizanidine 4 mg tablet See Rx Instructions PO Q8H PRN (Reason: muscle spasticity) Qty: 20 0RF Rx Instructions: 1/2 to 1 tablet orally every 8 hours PRN; duloxetine 60 mg capsule,delayed release(DR/EC) 60 mg PO DAILY Qty: 60 2RF furosemide 40 mg tablet 40 mg PO DAILY Qty: 30 0RF rosuvastatin 40 mg tablet 40 mg PO DAILY Qty: 90 0RF gabapentin 600 mg tablet See Rx Instructions .ROUTE .COMPLEX Qty: 90 3RF Dose Instruction: TAKE ONE TABLET BY MOUTH THREE TIMES DAILY Rx Instructions: TAKE ONE TABLET BY MOUTH THREE TIMES DAILY pantoprazole 40 mg tablet,delayed release (DR/EC) See Rx Instructions .ROUTE .COMPLEX Qty: 30 3RF Dose Instruction: TAKE ONE TABLET BY MOUTH DAILY Rx Instructions: TAKE ONE TABLET BY MOUTH DAILY trazodone 50 mg tablet See Rx Instructions .ROUTE .COMPLEX Qty: 30 3RF Dose Instruction: TAKE ONE TABLET BY MOUTH AT BEDTIME Rx Instructions: TAKE ONE TABLET BY MOUTH AT BEDTIME Levemir FlexPen 100 unit/mL (3 mL) insulin pen 30 unit SUBCUT DAILY 30 Days Qty: 15 1RF ergocalciferol (vitamin D2) 1,250 mcg (50,000 unit) capsule 1,250 mcg PO Q7D Qty: 4 4RF Rx Instructions: TAKE ON FRIDAY ropinirole 1 mg tablet 2 mg PO TID 30 Days Qty: 180 2RF carvedilol 25 mg tablet See Rx Instructions .ROUTE .COMPLEX Qty: 60 3RF Dose Instruction: TAKE ONE TABLET BY MOUTH TWICE DAILY, must take with food Rx Instructions: TAKE ONE TABLET BY MOUTH TWICE DAILY, must take with food insulin lispro [Humalog U-100 Insulin] 100 unit/mL solution 10 unit SUBCUT .COMPLEX Qty: 10 2RF Rx Instructions: 10 units subcutaneously for every 100 pts of glucose tid, so 10% of glucose sliding scale; Tiff Thyroid 30 mg tablet 30 mg PO DAILY Qty: 30 2RF clopidogrel 75 mg tablet See Rx Instructions .ROUTE .COMPLEX Qty: 30 3RF Dose Instruction: TAKE ONE TABLET BY MOUTH DAILY Rx Instructions: TAKE ONE TABLET BY MOUTH DAILY escitalopram oxalate 20 mg tablet See Rx Instructions .ROUTE .COMPLEX Qty: 30 3RF Dose Instruction: TAKE ONE TABLET BY MOUTH DAILY Rx Instructions: TAKE ONE TABLET BY MOUTH DAILY amlodipine 5 mg tablet 10 mg PO DAILY Qty: 60 2RF Farxiga 10 mg tablet 10 mg PO QAM Qty: 30 2RF hydroxyzine HCl 25 mg tablet 25 mg PO BEDTIME PRN (Reason: anxiety) albuterol sulfate 90 mcg/actuation HFA aerosol inhaler 2 inh INHALATION Q4H PRN (Reason: shortness of breath or wheezing) Qty: 6.7 1RF Discharge Orders: Discharge ED (Routine); Ordered 05/18/23 Ordered By: Manish Eric Referrals: Roxanne Villavicencio MD [Primary Care Provider] - 1 week Patient Instructions: Influenza (DC), Pneumonia - Viral Activity Restrictions/Additional Instructions: Your oxygen not follow enough to qualify for home oxygen. Your chest x-ray showed a left lower lobe pneumonia. You are influenza B positive this is probably a viral pneumonia. However he will be placed on antibiotics just to make for sure that he does not have a bacterial component to it. Please follow- up with your family practice physician within next 7 days for further evaluation testing. Please take all medicine as prescribed. Coding Level of Care Code ED Extension Course Counselor for Rosalio Saunders
[2023-05-18 20:14] LABS: Alanine Aminotransferase 28 U/L (0-33); Albumin Level 3.4 g/dL (3.5-5.2); Alkaline Phosphatase 69 U/L (35-105); Anion Gap 16.1 (5-19); Aspartate Amino Transferase 29 U/L (0-32); Blood Urea Nitrogen 17 mg/dL (6-20); Calcium 8.6 mg/dL (8.5-10.5); Carbon Dioxide 23 mmol/L (22-29); Chloride 94 mmol/L (98-107); Globulin 3.2 g/dL (1.3-4.6); Glomerular Filtration Rate 64.8 mL/min (90-130); Glucose 277 mg/dL (65-115); NT Pro B Type Natriuretic Pept 42 pg/mL (0-125); Osmolality Calculated 281 mOsm/kg (285-295); Potassium 3.1 mmol/L (3.5-5.1); Sodium 130 mmol/L (136-145); Total Bilirubin 0.3 mg/dL (0.15-1.2); Total Protein 6.6 g/dL (6.6-8.7)
[2023-05-18 20:22] LABS: Influenza A by IFA negative (Negative); Influenza B by IFA positive (Negative); SARS Covid-2 Antigen negative (Negative)
[2023-05-18 20:34] VITALS: PULSE 78; RESP 14; O2SAT 94
[2023-05-18 21:35] VITALS: PULSE 76; RESP 19; O2SAT 96
[2023-05-18 21:45] VITALS: O2SAT 92; O2SAT 95
[2023-05-18 21:47] LABS: Troponin 5 2HR 22.71 ng/L (0-10); Troponin 5 2HR Delta 1.71 ABS# (0-10)
[2023-05-18 22:29] VITALS: BP 151/98; PULSE 76; RESP 19; TEMP 36.9; O2SAT 96
[2023-05-18] MEDS: amoxicillin-clav 875-125 mg Tablet 1 TAB PO (22:29)
== END 2023-05-18 22:30 | disposition home or self-care (01) ==
PROVIDERS: Emergency Provider Emergency Medicine; PCP Family Medicine
DX: J10.1 Influenza due to other identified influenza virus with other respiratory manifestations (principal); J18.9 Pneumonia, unspecified organism; Z79.02 Long term (current) use of antithrombotics/antiplatelets; Z79.82 Long term (current) use of aspirin; Z79.4 Long term (current) use of insulin; Z79.84 Long term (current) use of oral hypoglycemic drugs; Z11.52 Encounter for screening for COVID-19; I25.10 Atherosclerotic heart disease of native coronary artery without angina pectoris; I10 Essential (primary) hypertension; E78.5 Hyperlipidemia, unspecified; E11.42 Type 2 diabetes mellitus with diabetic polyneuropathy; Z95.1 Presence of aortocoronary bypass graft
CPT/HCPCS: 36415; 71045; 80053; 83880; 84484; 85025; 87426; 87804; 93005; 99285

== ENCOUNTER → 2023-06-11 10:33 | Outpatient (BNVA) | payer OTHER, SELFPAY | PROVIDERS: PCP Family Medicine; Visit Provider Family Medicine | DX: Z01.419 Encounter for gynecological examination (general) (routine) without abnormal findings (principal) | CPT/HCPCS: 88175 ==

== ENCOUNTER 2023-06-17 11:23 | Outpatient (CLI) | payer OTHER, SELFPAY ==
--- NOTE | 2023-06-17 11:30 | MM_ITS ---
WS: [id number] BILATERAL 3D TOMOSYNTHESIS DIGITAL SCREENING MAMMOGRAPHY WITH CAD CLINICAL INFORMATION: Z12.39 - Encounter for other screening for malignant neop... HISTORY: Screening mammogram. No current complaints. COMPARISON: 2008 TECHNIQUE: Bilateral CC and MLO views. FINDINGS: Scattered fibroglandular densities bilaterally. No suspicious focal mass, asymmetry, calcifications, or architectural distortion. No evidence of malignancy. Lucent centered calcification LEFT breast. IMPRESSION: MM/[place] [id number] BI-RADS: 2-Benign FOLLOW UP: 1 Year Follow-up Recommend return to annual screening mammography.
== END 2023-06-17 11:24 | disposition home or self-care (01) ==
LOC: MOBLMAM 11:31
PROVIDERS: PCP Family Medicine; Visit Provider Family Medicine
DX: Z12.31 Encounter for screening mammogram for malignant neoplasm of breast (principal)
CPT/HCPCS: 77063; 77067